=== PATIENT | male | born 1980 | race Caucasian/White ===

== ENCOUNTER → 2022-04-28 10:32 | Outpatient (BNVA) | payer OTHER, SELFPAY | PROVIDERS: PCP Physician Assistant Medical; Visit Provider Nurse Practitioner Family | DX: R56.9 Unspecified convulsions (principal); R29.898 Other symptoms and signs involving the musculoskeletal system; R29.2 Abnormal reflex; Z79.899 Other long term (current) drug therapy | CPT/HCPCS: 99202 ==

== ENCOUNTER 2022-06-16 06:36 | Emergency (ER) | payer OTHER, SELFPAY ==
[2022-06-16 07:21] VITALS: BP 173/83; PULSE 60; RESP 16; TEMP 36.6; O2SAT 98; BMI 22.4
--- NOTE | 2022-06-16 07:58 | ED.BACK ---
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 At C3-C4 there is a posterior soft disc protrusion with moderate central stenosis. There are uncovertebral osteophytes and there is moderate to severe bilateral foraminal narrowing. 2. At C6-C7 there is a left-sided disc extending into the left neural foramen which is severely narrowed. There is also mass effect on the traversing left C8 nerve root. MR L-spine w/o 11/15/21 at [facility]: IMPRESSION: There is a broad shallow central protrusion at L4-L5. Otherwise unremarkable examination. No canal stenosis. No mass effect on the traversing or foraminal nerve roots. comes in today with c/o R sided back pain and spasms states this happens 3 times a year, pain is in mid back, radiates down right leg. No b/b incontinence, no saddle anesthesia, no IVDA/no DOAC> typical episode for him MD elicited complaint: back pain Pertinent past history: prior back pain Onset (ago): day(s) (3) Timing: constant and progressively worsening Severity: similar to previous episodes Similar Symptoms Previously: Yes Quality: sharp Location: lumbar spine Radiation: right upper leg Exacerbating factors: movement, walking, deep breaths and coughing/sneezing Relieving factors: immobilization Context: unknown Associated symptoms: denies other symptoms Treatments prior to arrival: other (lyrica) Work related injury: No Related Data Home Medications Medication Instructions Recorded Confirmed dolutegravir 50 mg-lamivudine 300 1 tab PO DAILY 04/28/22 04/28/22 mg tablet (Dovato) lansoprazole 30 mg delayed 30 mg PO DAILY 04/28/22 04/28/22 release,disintegrating tablet (Prevacid SoluTab) mirtazapine 15 mg tablet (Remeron) 15 mg PO BEDTIME 04/28/22 04/28/22 oxycodone 5 mg tablet 5 mg PO Q6H PRN severe pain 04/28/22 paroxetine HCl 40 mg tablet (Paxil) 40 mg PO DAILY 04/28/22 04/28/22 pregabalin 100 mg capsule (Lyrica) 100 mg PO DAILY 04/28/22 04/28/22 trazodone 50 mg tablet 50 mg PO BEDTIME PRN 04/28/22 04/28/22 Previous Rx's Medication Instructions Recorded levetiracetam 500 mg tablet 500 mg PO BID 30 days #60 tabs 04/28/22 (Keppra) magnesium oxide 400 mg (241.3 mg 400 mg PO BEDTIME 30 days #30 tabs 04/28/22 magnesium) tablet diazepam 5 mg tablet (Valium) 5 mg PO TID PRN muscle spasm #12 06/16/22 tabs lidocaine 4 % topical patch 1 patch topical DAILY PRN pain #10 06/16/22 ea prednisone 20 mg tablet 40 mg PO DAILY 4 days #8 tabs 06/16/22 Allergies Allergy/AdvReac Type Severity Reaction Status Date / Time No Known Allergies Allergy Verified 04/28/22 10:36 Review of Systems Review of Systems: Constitutional : No Weight loss, No Fever, No Chills, ENT/Mouth : No Hearing loss, No Ear Pain, No Nasal Congestion, No Sinus Pain, No Hoarseness, No sore throat, No Rhinorrhea, No Swallowing Difficulty Cardiovascular : No Chest Pain, No SOB Respiratory : No Cough, No Dyspnea Gastrointestinal : No Nausea, No Vomiting, No Diarrhea, No abdominal Pain, No Hematochezia, No Melena Genitourinary : No Dysuria, No Urinary Frequency, No Hematuria, No Urinary Incontinence, Musculoskeletal : positive back pain Skin : No Skin Lesions, No rash Neuro : No Weakness, No Numbness, No Paresthesias, no loss of bowel or bladder incontinence, no saddle anesthesia all other systems reviewed and are negative [facility] Past Medical History Attestation statement: The following information was validated with the patient. Medical History Chronic back pain Left leg weakness Seizure Family History Family History Father Drug abuse and dependence Unknown Cancer of bone Maternal Grandmother Diabetes Heart attack Maternal Grandfather Stroke Social History Social History Household Members: Family Alcohol intake: current Alcohol intake frequency: a few times a month Patient Tobacco Use Status: Never used Tobacco Advance Directives: No Advance Directives Information Provided: No Physical Exam Vital Signs: Vital Signs: Last Vital Signs Temp 97.8 F 06/16/22 07:21 Pulse 60 06/16/22 07:21 Resp 16 06/16/22 07:21 BP 173/83 H 06/16/22 07:21 Pulse Ox 98 06/16/22 07:21 BMI result Body Mass Index 22.4 Appearance: Alert. Oriented X3. No acute distress. Eyes: Pupils equal, round and reactive to light. ENT: Pharynx normal. Neck: Normal inspection. Neck supple. CVS: Normal heart rate and rhythm. Pulses normal. Respiratory: No respiratory distress. Breath sounds normal. Abdomen: Soft and non-tender. Back: ttp along lower lumbar and R lumbar Skin: Skin warm and dry. Normal skin color. Normal skin turgor. Extremities: No lower extremity edema. No calf ttp Neuro: Oriented X 3. No motor deficit. No sensory deficit. SILT inner thigh, L5 5/5 bilaterally Course Course Course Narrative: patient feels much better and feels like he can go home and manage pain at home with medications MDM - Back Pain/Injury MDM Narrative Medical decision making narrative: 42 yo male with seizures, fibromyalgia, chronic back pain here with c/o back spasms and flare of chronic back pain this happens 3 times a year. He is distal NV intact, no b/b incontinence, no saddle anesthesia, no IVDA, no DOAC use. Just had MRI in February. Will try oral medications and reassess. Discharge Plan Discharge Clinical Impression: Lumbar radiculopathy, Strain of lumbar region Patient Disposition: Home, Self-Care Instructions: Back Pain (ED), Lower Back Exercises (ED) Additional Instructions: return to ED for any worsening symptoms or concerns Prescriptions: New lidocaine 4 % adhesive patch,medicated 1 patch topical DAILY PRN (Reason: pain) Qty: 10 0RF Rx Instructions: may leave on for up to 12 hrs prednisone 20 mg tablet 40 mg PO DAILY 4 Days Qty: 8 0RF diazepam [Valium] 5 mg tablet 5 mg PO TID PRN (Reason: muscle spasm) Qty: 12 0RF Rx Instructions: partial fill is okay No Action oxycodone 5 mg tablet 5 mg PO Q6H PRN (Reason: severe pain) Dovato 50-300 mg tablet 1 tab PO DAILY lansoprazole [Prevacid SoluTab] 30 mg tablet,disintegrat, delay rel 30 mg PO DAILY mirtazapine [Remeron] 15 mg tablet 15 mg PO BEDTIME paroxetine HCl [Paxil] 40 mg tablet 40 mg PO DAILY pregabalin [Lyrica] 100 mg capsule 100 mg PO DAILY trazodone 50 mg tablet 50 mg PO BEDTIME PRN magnesium oxide 400 mg (241.3 mg magnesium) tablet 400 mg PO BEDTIME 30 Days Qty: 30 6RF Rx Instructions: may hold for loose stools levetiracetam [Keppra] 500 mg tablet 500 mg PO BID 30 Days Qty: 60 6RF Referrals: Jorge Aguilera PA-C [Primary Care Provider] - 2 days (if not better) Stand Alone Forms: Work/School Release Print Language: Maltese
[2022-06-16] MEDS: diazePAM 2 MG TABLET 5 MG PO (08:31)
[2022-06-16] MEDS: predniSONE 20 MG TABLET 40 MG PO (08:31)
[2022-06-16] MEDS: HYDROcodone Bit/Acetam 5/325 TABLET 1 TAB PO (08:31)
[2022-06-16] MEDS: Ketorolac Tromethamine 30 MG/ML VIAL IM (08:31)
== END 2022-06-16 10:09 | disposition home or self-care (01) ==
PROVIDERS: Emergency Provider Emergency Medicine; PCP Physician Assistant Medical
DX: M54.16 Radiculopathy, lumbar region (principal); S39.012A Strain of muscle, fascia and tendon of lower back, initial encounter; X58.XXXA Exposure to other specified factors, initial encounter; Y93.9 Activity, unspecified; Y92.9 Unspecified place or not applicable; Y99.9 Unspecified external cause status
CPT/HCPCS: 96372; 99283; 99284; J1885

== ENCOUNTER → 2022-07-28 09:04 | Outpatient (BNVA) | payer OTHER, SELFPAY | PROVIDERS: PCP Physician Assistant Medical; Visit Provider Nurse Practitioner Family | DX: R56.9 Unspecified convulsions (principal); R29.2 Abnormal reflex | CPT/HCPCS: 99212 ==

== ENCOUNTER 2022-08-09 11:14 | Outpatient (REF) | payer OTHER, SELFPAY ==
[2022-08-09 13:44] LABS: MANUAL DIFF FLAG NO
[2022-08-09 13:59] LABS: Appearance Urine Clear; Color Urine Yellow; Glucose Urine UA Negative (Negative); Leukocyte Esterase Urine Negative (Negative); Nitrite Urine Negative (Negative); PH 6.5 (5.0-9.0); Specific Gravity - Urine 1.015 (1.005-1.025); Urine Blood Negative (Negative); Urine Ketones Negative (Negative); Urine Protein Negative (Neg-Trace)
[2022-08-09 14:01] LABS: Basophils Percent Auto 0.7 % (0-2); Eosinophils Absolute Auto 0.1 X10*3/uL (0.0-0.4); Eosinophils Percent Auto 1.6 % (0-4); Hematocrit 41.9 % (42.0-52.0); Hemoglobin 14.1 g/dl (14.0-18.0); Imm Gran Abs Auto 0.02 X10*3/uL (0.00-0.03); Imm Gran Pct Auto 0.3 % (0.0-0.4); Lymphocytes Absolute Auto 2.2 X10*3/uL (1.2-4.9); Lymphocytes Percent Auto 35.8 % (20-40); Mean Corpuscular HGB Conc 33.7 g/dl (31.0-36.0); Mean Corpuscular Hemoglobin 34.6 pg (27.0-33.0); Mean Corpuscular Volume 102.9 fL (80.0-98.0); Mean Platelet Volume 9.9 fL (9.4-12.4); Monocytes Absolute Auto 0.5 X10*3/uL (0.1-1.2); Neutrophils Absolute Auto 3.3 x10*3/uL (2.0-8.3); Neutrophils Percent Auto 53.6 % (45-73); Platelet Count 278 X10*3/uL (160-400); Red Blood Count 4.07 X10*6/uL (4.60-5.80); Red Cell Distribution Width 11.5 % (11.0-16.0); White Blood Count 6.2 X10*3/uL (4.8-10.8)
[2022-08-09 14:04] LABS: Bacteria Urine None Seen (None Seen); Hyaline Casts Urine 0-2 /LPF (0-2); RBC Urine 0-2 /HPF (0-2); Squamous Epithelial Cell Urine 0-2 /HPF (0-2); WBC Urine 0-5 /HPF (0-5)
[2022-08-09 14:15] LABS: Alanine Aminotransferase 14 U/L (0-40); Albumin Level 4.8 g/dL (3.5-5.0); Alkaline Phosphatase 74 U/L (39-117); Anion Gap 15 (12-20); Aspartate Amino Transferase 17 U/L (5-37); Bilirubin Total 0.6 mg/dL (0.0-1.0); Blood Urea Nitrogen 20 mg/dL (9-16); C Reactive Protein 0.26 mg/dL (< or = 0.50); Calcium 9.7 mg/dL (8.4-10.2); Carbon Dioxide 27 mmol/L (22-29); Chloride 101 mmol/L (96-108); Estimated Glomerular Filt Rate > 60; Glucose Random 95 mg/dL (60-115); Potassium 4.1 mmol/L (3.3-5.1); Rheumatoid Factor < 15.0 IU/mL (<15.0); Sodium 139 mmol/L (135-145); Total Protein 7.7 g/dL (6.5-8.0)
[2022-08-09 14:25] LABS: Creatinine Urine 68.14 mg/dL; Total Protein Urine Random < 7 mg/dL (<12)
[2022-08-09 14:37] LABS: Erythrocyte Sedimentation Rate 7 MM/HR (0-15)
[2022-08-09 14:41] LABS: Thyroid Stimulating Hormone 0.69 uIU/mL (0.32-4.0)
[2022-08-10 16:47] LABS: Complement C3 124 mg/dL (82-185)
[2022-08-11 10:21] LABS: Anti DNA DS Antibody <1 IU/mL; Antibody to SS-A Antigen <1.0 NEG AI (<1.0 NEG); Antibody to SS-B Antigen <1.0 NEG AI (<1.0 NEG); SM/Ribonucleoprotein Ab <1.0 NEG AI (<1.0 NEG); Smith Protein <1.0 NEG AI (<1.0 NEG)
[2022-08-11 17:17] LABS: Cyclic Citrullinated Peptide <16 UNITS
[2022-08-12 08:37] LABS: Anti Nuclear Antibody Screen NEGATIVE (NEGATIVE)
[2022-08-14 15:46] LABS: HLA B27 Negative (Negative)
[2022-08-15 14:32] LABS: Vitamin D 25-OH, D2 <4 ng/mL; Vitamin D 25-OH, D3 21 ng/mL; Vitamin D 25-OH, Total 21 ng/mL (30-100)
== END 2022-08-09 11:15 | disposition home or self-care (01) ==
LOC: HO.10HDL 11:14
PROVIDERS: Visit Provider Student in an Organized Health Care Education/Training Program
DX: Z13.21 Encounter for screening for nutritional disorder (principal); M25.541 Pain in joints of right hand; G72.9 Myopathy, unspecified; R53.83 Other fatigue; M25.542 Pain in joints of left hand; M54.50 Low back pain, unspecified; G89.29 Other chronic pain; M79.7 Fibromyalgia
CPT/HCPCS: 36415; 80053; 81001; 82306; 82550; 84156; 84443; 85025; 85652; 86038; 86039; 86140; 86160; 86200; 86225; 86235; 86431; 86812; 99202

== ENCOUNTER 2022-08-19 15:10 | Outpatient (REF) | payer OTHER, SELFPAY ==
--- NOTE | ~2022-08-19 | XR_ITS ---
EXAMINATION: XR SACROILIAC JOINTS CLINICAL INFORMATION: M54.50 - Low back pain, unspecified COMPARISON: Outside MR lumbar spine 11/22/2021 ([facility]). TECHNIQUE: 3 views of the sacroiliac joints FINDINGS: There is a transitional vertebral body at the lumbosacral junction with partial left hemisacralization and right lisandro lumbarization. The SI joints show no narrowing or erosive change or subchondral sclerosis. No ankylosis. The hip joints show no narrowing or erosive change or chondrocalcinosis. There is benign mineralization adjacent to superior aspect right greater trochanter approximately 0.6 x 0.9 cm which may represent calcific tendinosis. No erosion. No bony destructive process. XR/XR sacroiliac joint min 3V IMPRESSION: 1. Normal SI joints. 2. Transitional vertebral body at the lumbosacral junction. 3. Benign mineralization adjacent to right greater trochanter which may represent calcific tendinosis.
--- NOTE | ~2022-08-19 | XR_ITS ---
EXAMINATION: XR HAND WRIST, RIGHT XR HAND WRIST, LEFT CLINICAL INFORMATION: Pain in joints of bilateral hands. COMPARISON: None TECHNIQUE: Each hand and wrist are imaged in 3 large [id number] images. A navicular view of the bilateral wrists were also obtained. There are a total of 8 views, 4 on each side. FINDINGS: Right: Normal bony mineralization. The ulnar variance is neutral. The carpus shows no joint narrowing or erosive change or chondrocalcinosis. The MCP and interphalangeal joints show no narrowing or erosive change. There is an incidental small corticated ossicle lateral side third finger PIP joint. Left: Normal bony mineralization. Ulnar variance is neutral. The carpus shows no joint narrowing, erosive change, or chondrocalcinosis. The MCP and interphalangeal joints are unremarkable. No joint narrowing or erosive change. XR/XR hand wrist LT IMPRESSION: -No joint narrowing or erosive change.
--- NOTE | ~2022-08-19 | XR_ITS ---
EXAMINATION: XR HAND WRIST, RIGHT XR HAND WRIST, LEFT CLINICAL INFORMATION: Pain in joints of bilateral hands. COMPARISON: None TECHNIQUE: Each hand and wrist are imaged in 3 large [id number] images. A navicular view of the bilateral wrists were also obtained. There are a total of 8 views, 4 on each side. FINDINGS: Right: Normal bony mineralization. The ulnar variance is neutral. The carpus shows no joint narrowing or erosive change or chondrocalcinosis. The MCP and interphalangeal joints show no narrowing or erosive change. There is an incidental small corticated ossicle lateral side third finger PIP joint. Left: Normal bony mineralization. Ulnar variance is neutral. The carpus shows no joint narrowing, erosive change, or chondrocalcinosis. The MCP and interphalangeal joints are unremarkable. No joint narrowing or erosive change. XR/XR hand wrist RT IMPRESSION: -No joint narrowing or erosive change.
== END 2022-08-19 15:11 | disposition home or self-care (01) ==
LOC: HO.XRAY 15:10
PROVIDERS: PCP Physician Assistant Medical; Visit Provider Student in an Organized Health Care Education/Training Program
DX: M25.542 Pain in joints of left hand (principal); M25.541 Pain in joints of right hand; M54.50 Low back pain, unspecified
CPT/HCPCS: 72202; 73110; 73130

== ENCOUNTER → 2022-09-09 08:17 | Outpatient (BNVA) | payer OTHER, SELFPAY | PROVIDERS: PCP Physician Assistant Medical; Visit Provider Student in an Organized Health Care Education/Training Program | DX: M79.7 Fibromyalgia (principal); B20 Human immunodeficiency virus [HIV] disease; Z79.899 Other long term (current) drug therapy | CPT/HCPCS: 99212 ==

== ENCOUNTER → 2023-01-24 08:02 | Outpatient (BNVA) | payer OTHER, SELFPAY | PROVIDERS: PCP Physician Assistant Medical; Visit Provider Nurse Practitioner Family | DX: R56.9 Unspecified convulsions (principal); M79.7 Fibromyalgia | CPT/HCPCS: 99212 ==

== ENCOUNTER → 2023-03-09 13:00 | Outpatient (BNVA) | payer OTHER, SELFPAY | PROVIDERS: PCP Physician Assistant Medical; Visit Provider Student in an Organized Health Care Education/Training Program | DX: M79.7 Fibromyalgia (principal) | CPT/HCPCS: 99212 ==

== ENCOUNTER 2023-06-13 15:53 | Emergency (ER) | payer MEDICAID, SELFPAY ==
--- NOTE | ~2023-06-13 | XR_ITS ---
EXAMINATION: XR CHEST 2 VIEW CLINICAL INFORMATION: Chest pain COMPARISON: None TECHNIQUE: PA and lateral views of the chest obtained. FINDINGS: The lungs are clear. There are no pleural effusions. The cardiomediastinal silhouette is normal. No rib fracture or pneumothorax is evident. Osseous structures are intact. XR/XR chest 2V IMPRESSION: No acute cardiopulmonary disease.
[2023-06-13 15:55] VITALS: BP 112/81; PULSE 110; RESP 20; O2SAT 96; BMI 21.8
--- NOTE | 2023-06-13 15:55 | ECG_ITS ---
Test Reason : CHEST PAIN Blood Pressure : / mmHG Vent. Rate : 106 BPM Atrial Rate : 106 BPM P-R Int : 146 ms QRS Dur : 080 ms QT Int : 308 ms P-R-T Axes : 052 003 010 degrees QTc Int : 409 ms Sinus tachycardia T wave abnormality, consider anterior ischemia Abnormal ECG No previous ECGs available Referred By: Teresa Felipe Electronically Signed By:Jeovanny Verdugo
--- NOTE | 2023-06-13 15:59 | ED_ITS ---
HPI - Chest Pain General Chief Complaint: Chest Pain Stated Complaint: Chest pain/Dizziness/Weakness Time Seen by Provider: 06/13/23 16:38 Related Data Home Medications Medication Instructions Recorded Confirmed lansoprazole 30 mg delayed 30 mg PO DAILY 04/28/22 01/24/23 release,disintegrating tablet (Prevacid SoluTab) paroxetine HCl 40 mg tablet (Paxil) 40 mg PO DAILY 04/28/22 01/24/23 rosuvastatin 5 mg tablet 5 mg PO DAILY 08/09/22 01/24/23 aripiprazole 10 mg tablet 10 mg PO DAILY 09/09/22 01/24/23 cabotegravir ER 600 mg/3 6 ml IM [id number] 09/09/22 01/24/23 mL-rilpivirine ER 900 mg/3mL IM suspension,ER (Cabenuva) mirtazapine 30 mg tablet 30 mg PO BEDTIME depressive 09/09/22 01/24/23 disorder prazosin 2 mg capsule 2 mg PO BEDTIME 09/09/22 01/24/23 temazepam 30 mg capsule 30 mg PO BEDTIME PRN 01/24/23 01/24/23 aripiprazole 15 mg tablet 15 mg PO DAILY 03/09/23 lansoprazole 30 mg capsule,delayed 30 mg PO BEDTIME 03/09/23 release prazosin 1 mg capsule 1 mg PO BEDTIME 03/09/23 Previous Rx's Medication Instructions Recorded levetiracetam 1,000 mg tablet 1,000 mg PO Q12H 30 days #60 tabs 01/24/23 levetiracetam 250 mg tablet 250 mg PO Q12H 30 days #60 tabs 01/24/23 magnesium oxide 400 mg (241.3 mg 400 mg PO BEDTIME 30 days #30 tabs 01/24/23 magnesium) tablet pregabalin 150 mg capsule 150 mg PO TID #90 caps 04/18/23 Allergies Allergy/AdvReac Type Severity Reaction Status Date / Time No Known Allergies Allergy Verified 06/13/23 15:59 [facility] Past Medical History Medical History Chronic back pain Fibromyalgia, primary HIV (human immunodeficiency virus infection) Left leg weakness Seizure Surgical History History of carpal tunnel release of both wrists Family History Family History Father Drug abuse and dependence Unknown Cancer of bone Maternal Grandmother Diabetes Heart attack Maternal Grandfather Stroke Social History Social History Household Members: Family Housing: House Alcohol intake: never Patient Tobacco Use Status: Never used Tobacco Smoked in Last 30 Days: No Use of substances other than those prescribed or required for medical reasons: Yes Substance Use Type: Marijuana Substance Use Frequency: Occasionally Advance Directives: No Advance Directives Information Provided: No service: No Current occupational status: unemployed 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 Accompanied by dizziness, weakness, blurred visio n and occipital headache. Admits to cocaine use 3 days ago, does not use regularly. BP normal in triage, HR low 100s. Plan: EKG, CXR, lab workup Medications Administered Discontinued Medications Generic Name Dose Route Start Last Admin Trade Name Rebecca PRN Reason Stop Dose Admin Acetaminophen 650 mg 06/13/23 17:52 06/13/23 18:30 Acetaminophen 325 Mg Tablet PO 06/13/23 17:53 650 mg ONCE ONE Administration Al Hydroxide/Mg Hydroxide 30 ml 06/13/23 17:24 06/13/23 17:49 Magnesium Hydrox/Alum Hydrox 30 Ml Oral.Susp PO 06/13/23 17:25 30 ml ONCE ONE Administration Famotidine 20 mg 06/13/23 17:24 06/13/23 17:49 Famotidine 20 Mg Tablet PO 06/13/23 17:25 20 mg ONCE ONE Administration Medical Decision Making Lab Data 06/13/23 16:17 06/13/23 16:17 Labs: Lab Results 06/13/23 06/13/23 06/13/23 Range/Units 16:17 16:17 16:17 WBC 11.3 H (4.8-10.8) X10*3/uL RBC 4.05 L (4.60-5.80) X10*6/uL Hgb 13.3 L (14.0-18.0) g/dl Hct 39.1 L (42.0-52.0) % MCV 96.5 (80.0-98.0) fL MCH 32.8 (27.0-33.0) pg MCHC 34.0 (31.0-36.0) g/dl RDW 12.1 (11.0-16.0) % Plt Count 201 D (160-400) X10*3/uL MPV 9.3 L (9.4-12.4) fL Immature Gran % (Auto) 0.4 (0.0-0.4) % Neut % (Auto) 90.6 H (45-73) % Lymph % (Auto) 4.3 L (20-40) % Dukes % (Auto) 4.5 (2-11) % Eos % (Auto) 0.0 (0-4) % Baso % (Auto) 0.2 (0-2) % Lymph # (Auto) 0.5 L (1.2-4.9) X10*3/uL Dukes # (Auto) 0.5 (0.1-1.2) X10*3/uL Eos # (Auto) 0.0 (0.0-0.4) X10*3/uL Baso # (Auto) 0.0 (0.0-0.2) X10*3/uL Abs Immat Gran (auto) 0.04 H (0.00-0.03) X10*3/uL Absolute Neuts (auto) 10.2 H (2.0-8.3) x10*3/uL Absolute Nucleated RBC 0.000 (0.0-0.012) X10*3/uL Nucleated RBC % (auto) 0.0 (0.0-0.2) /100WBC Smear Tech's Comments VERIFIED Sodium 132 L (135-145) mmol/L Potassium 3.4 (3.3-5.1) mmol/L Chloride 99 (96-108) mmol/L Carbon Dioxide 26 (22-29) mmol/L Anion Gap 10 L (12-20) BUN 12 (9-16) mg/dL Creatinine 1.14 (0.5-1.4) mg/dL Estim Creat Clear Calc 69.4 Estimated GFR > 60 Random Glucose 134 H (60-115) mg/dL Calcium 9.6 (8.4-10.2) mg/dL Magnesium 1.5 L (1.6-2.6) mg/dL Total Bilirubin 1.0 (0.0-1.0) mg/dL Direct Bilirubin 0.4 (0.0-0.5) mg/dL AST 20 (5-37) U/L ALT 18 (0-40) U/L Alkaline Phosphatase 75 (39-117) U/L Troponin I High Sens 3.7 (<3.5-35.0) ng/L Total Protein 7.2 (6.5-8.0) g/dL Albumin 4.4 (3.5-5.0) g/dL Discharge Plan Discharge Prescriptions: No Action pregabalin 150 mg capsule 150 mg PO TID Qty: 90 1RF lansoprazole [Prevacid SoluTab] 30 mg tablet,disintegrat, delay rel 30 mg PO DAILY paroxetine HCl [Paxil] 40 mg tablet 40 mg PO DAILY temazepam 30 mg capsule 30 mg PO BEDTIME PRN levetiracetam 250 mg tablet 250 mg PO Q12H 30 Days Qty: 60 6RF Rx Instructions: take w/ 1000mg tab = 1250mg q 12hrs levetiracetam 1,000 mg tablet 1,000 mg PO Q12H 30 Days Qty: 60 6RF Rx Instructions: take w/ 250mg tab = 1250mg q 12hrs magnesium oxide 400 mg (241.3 mg magnesium) tablet 400 mg PO BEDTIME 30 Days Qty: 30 6RF Rx Instructions: may hold for loose stools Cabenuva 600 mg/3 mL- 900 mg/3 mL suspension,extended release 6 ml IM [id number] aripiprazole 10 mg tablet 10 mg PO DAILY prazosin 2 mg capsule 2 mg PO BEDTIME mirtazapine 30 mg tablet 30 mg PO BEDTIME rosuvastatin 5 mg tablet 5 mg PO DAILY aripiprazole 15 mg tablet 15 mg PO DAILY lansoprazole 30 mg capsule,delayed release(DR/EC) 30 mg PO BEDTIME prazosin 1 mg capsule 1 mg PO BEDTIME
[2023-06-13 16:23] LABS: Basophils Percent Auto 0.2 % (0-2); Hematocrit 39.1 % (42.0-52.0); Hemoglobin 13.3 g/dl (14.0-18.0); Imm Gran Abs Auto 0.04 X10*3/uL (0.00-0.03); Imm Gran Pct Auto 0.4 % (0.0-0.4); Lymphocytes Absolute Auto 0.5 X10*3/uL (1.2-4.9); Lymphocytes Percent Auto 4.3 % (20-40); MANUAL DIFF FLAG SCAN; Mean Corpuscular Hemoglobin 32.8 pg (27.0-33.0); Mean Corpuscular Volume 96.5 fL (80.0-98.0); Mean Platelet Volume 9.3 fL (9.4-12.4); Monocytes Absolute Auto 0.5 X10*3/uL (0.1-1.2); Monocytes Percent Auto 4.5 % (2-11); Neutrophils Absolute Auto 10.2 x10*3/uL (2.0-8.3); Neutrophils Percent Auto 90.6 % (45-73); Platelet Count 201 X10*3/uL (160-400); Red Blood Count 4.05 X10*6/uL (4.60-5.80); Red Cell Distribution Width 12.1 % (11.0-16.0); SCAN SMEAR FLAG 1; White Blood Count 11.3 X10*3/uL (4.8-10.8)
[2023-06-13 16:47] LABS: Alanine Aminotransferase 18 U/L (0-40); Albumin Level 4.4 g/dL (3.5-5.0); Alkaline Phosphatase 75 U/L (39-117); Anion Gap 10 (12-20); Aspartate Amino Transferase 20 U/L (5-37); Bilirubin Direct 0.4 mg/dL (0.0-0.5); Blood Urea Nitrogen 12 mg/dL (9-16); Calcium 9.6 mg/dL (8.4-10.2); Carbon Dioxide 26 mmol/L (22-29); Chloride 99 mmol/L (96-108); Creatinine Clr Calc Pharmacy 69.4; Estimated Glomerular Filt Rate > 60; Glucose Random 134 mg/dL (60-115); Magnesium 1.5 mg/dL (1.6-2.6); Potassium 3.4 mmol/L (3.3-5.1); Sodium 132 mmol/L (135-145); Total Protein 7.2 g/dL (6.5-8.0)
[2023-06-13 16:50] LABS: Troponin-I High Sensitivity 3.7 ng/L (<3.5-35.0)
[2023-06-13 16:51] LABS: SLIDE REVIEW VERIFIED
[2023-06-13 17:18] VITALS: BP 122/65; PULSE 108; RESP 16; O2SAT 97
[2023-06-13 17:24] VITALS: PULSE 107
--- NOTE | 2023-06-13 17:25 | ED.CHESTPAIN ---
HPI - Chest Pain General Chief Complaint: Chest Pain Stated Complaint: Chest pain/Dizziness/Weakness Time Seen by Provider: 06/13/23 16:38 Source: patient Mode of arrival: ambulatory Limitations: no limitations History of Present Illness HPI narrative: Patient 43 years old history of anxiety HIV , fibromyalgia had soup and darker which were hot after that patient start having the burning feeling in mid chest and epigastric area also complaining of body aches patient does have a fibromyalgia and is common for him to have body aches Related Data Home Medications Medication Instructions Recorded Confirmed lansoprazole 30 mg delayed 30 mg PO DAILY 04/28/22 01/24/23 release,disintegrating tablet (Prevacid SoluTab) paroxetine HCl 40 mg tablet (Paxil) 40 mg PO DAILY 04/28/22 01/24/23 rosuvastatin 5 mg tablet 5 mg PO DAILY 08/09/22 01/24/23 aripiprazole 10 mg tablet 10 mg PO DAILY 09/09/22 01/24/23 cabotegravir ER 600 mg/3 6 ml IM [id number] 09/09/22 01/24/23 mL-rilpivirine ER 900 mg/3mL IM suspension,ER (Cabenuva) mirtazapine 30 mg tablet 30 mg PO BEDTIME depressive 09/09/22 01/24/23 disorder prazosin 2 mg capsule 2 mg PO BEDTIME 09/09/22 01/24/23 temazepam 30 mg capsule 30 mg PO BEDTIME PRN 01/24/23 01/24/23 aripiprazole 15 mg tablet 15 mg PO DAILY 03/09/23 lansoprazole 30 mg capsule,delayed 30 mg PO BEDTIME 03/09/23 release prazosin 1 mg capsule 1 mg PO BEDTIME 03/09/23 Previous Rx's Medication Instructions Recorded levetiracetam 1,000 mg tablet 1,000 mg PO Q12H 30 days #60 tabs 01/24/23 levetiracetam 250 mg tablet 250 mg PO Q12H 30 days #60 tabs 01/24/23 magnesium oxide 400 mg (241.3 mg 400 mg PO BEDTIME 30 days #30 tabs 01/24/23 magnesium) tablet pregabalin 150 mg capsule 150 mg PO TID #90 caps 04/18/23 lorazepam 1 mg tablet (Ativan) 1 mg PO BEDTIME PRN anxiety/sleep 06/13/23 #10 tabs sucralfate 1 gram tablet 1 g PO TID #90 tabs 06/13/23 Allergies Allergy/AdvReac Type Severity Reaction Status Date / Time No Known Allergies Allergy Verified 06/13/23 15:59 Review of Systems Review of Systems: Yes all other systems are reviewed and are negative [facility] Past Medical History Medical History Chronic back pain Fibromyalgia, primary HIV (human immunodeficiency virus infection) Left leg weakness Seizure Surgical History History of carpal tunnel release of both wrists Family History Family History Father Drug abuse and dependence Unknown Cancer of bone Maternal Grandmother Diabetes Heart attack Maternal Grandfather Stroke Social History Social History Household Members: Family Housing: House Alcohol intake: never Patient Tobacco Use Status: Never used Tobacco Smoked in Last 30 Days: No Use of substances other than those prescribed or required for medical reasons: Yes Substance Use Type: Marijuana Substance Use Frequency: Occasionally Advance Directives: No Advance Directives Information Provided: No service: No Current occupational status: unemployed 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 Oriented X3. No acute distress. Eyes: PERRLA, No Nystagmus ENT: Pharynx normal. Oral Mucosa moist Neck: Normal inspection. Neck supple. CVS: Normal heart rate and rhythm. Pulses normal. Respiratory: No respiratory distress. Equal air entry bilateral, no wheezing/rales/rhonchi Abdomen: Soft ,mild epigastric tenderness. Bowel sounds are present, no mass palpable, no CVA tenderness Skin: Skin warm and dry. Normal skin color. Normal skin turgor. Extremities: No lower extremity edema. No calf tenderness Neuro: Oriented X 3. No motor deficit. No sensory deficit.No cerebellar signs , cranial nerves II-XII intact Medications Administered Discontinued Medications Generic Name Dose Route Start Last Admin Trade Name Rebecca PRN Reason Stop Dose Admin Acetaminophen 650 mg 06/13/23 17:52 06/13/23 18:30 Acetaminophen 325 Mg Tablet PO 06/13/23 17:53 650 mg ONCE ONE Administration Al Hydroxide/Mg Hydroxide 30 ml 06/13/23 17:24 06/13/23 17:49 Magnesium Hydrox/Alum Hydrox 30 Ml Oral.Susp PO 06/13/23 17:25 30 ml ONCE ONE Administration Famotidine 20 mg 06/13/23 17:24 06/13/23 17:49 Famotidine 20 Mg Tablet PO 06/13/23 17:25 20 mg ONCE ONE Administration Medical Decision Making Medical Decision Making [facility] Narrative: Patient with symptoms of gastritis noncardiac chest pain with anxiety feeling much better after Maalox and Pepcid will discharge patient home heart score of 0 Differential Diagnosis Differential Diagnoses: The differential diagnosis associated with the presentation includes ACS/gastritis/hiatal hernia/anxiety Lab Data [facility] Lab Attestation statement: I reviewed the patient's lab results. 06/13/23 16:17 06/13/23 16:17 Labs: Lab Results 06/13/23 06/13/23 06/13/23 Range/Units 16:17 16:17 16:17 WBC 11.3 H (4.8-10.8) X10*3/uL RBC 4.05 L (4.60-5.80) X10*6/uL Hgb 13.3 L (14.0-18.0) g/dl Hct 39.1 L (42.0-52.0) % MCV 96.5 (80.0-98.0) fL MCH 32.8 (27.0-33.0) pg MCHC 34.0 (31.0-36.0) g/dl RDW 12.1 (11.0-16.0) % Plt Count 201 D (160-400) X10*3/uL MPV 9.3 L (9.4-12.4) fL Immature Gran % (Auto) 0.4 (0.0-0.4) % Neut % (Auto) 90.6 H (45-73) % Lymph % (Auto) 4.3 L (20-40) % Sevier % (Auto) 4.5 (2-11) % Eos % (Auto) 0.0 (0-4) % Baso % (Auto) 0.2 (0-2) % Lymph # (Auto) 0.5 L (1.2-4.9) X10*3/uL Sevier # (Auto) 0.5 (0.1-1.2) X10*3/uL Eos # (Auto) 0.0 (0.0-0.4) X10*3/uL Baso # (Auto) 0.0 (0.0-0.2) X10*3/uL Abs Immat Gran (auto) 0.04 H (0.00-0.03) X10*3/uL Absolute Neuts (auto) 10.2 H (2.0-8.3) x10*3/uL Absolute Nucleated RBC 0.000 (0.0-0.012) X10*3/uL Nucleated RBC % (auto) 0.0 (0.0-0.2) /100WBC Smear Tech's Comments VERIFIED Sodium 132 L (135-145) mmol/L Potassium 3.4 (3.3-5.1) mmol/L Chloride 99 (96-108) mmol/L Carbon Dioxide 26 (22-29) mmol/L Anion Gap 10 L (12-20) BUN 12 (9-16) mg/dL Creatinine 1.14 (0.5-1.4) mg/dL Estim Creat Clear Calc 69.4 Estimated GFR > 60 Random Glucose 134 H (60-115) mg/dL Calcium 9.6 (8.4-10.2) mg/dL Magnesium 1.5 L (1.6-2.6) mg/dL Total Bilirubin 1.0 (0.0-1.0) mg/dL Direct Bilirubin 0.4 (0.0-0.5) mg/dL AST 20 (5-37) U/L ALT 18 (0-40) U/L Alkaline Phosphatase 75 (39-117) U/L Troponin I High Sens 3.7 (<3.5-35.0) ng/L Total Protein 7.2 (6.5-8.0) g/dL Albumin 4.4 (3.5-5.0) g/dL Independent Interpretation I performed an independent interpretation of an: EKG Interpretation: sinus tachycardia heart rate of 106 beats per minute no acute ST-T changes nonspecific T wave inversion in anterior leads Discharge Plan Discharge Clinical Impression: Chest pain due to gastrointestinal reflux disease, Fibromyalgia, primary Patient Disposition: Home, Self-Care Instructions: Fibromyalgia (ED), Gastroesophageal Reflux Disease (ED), Noncardiac Chest Pain (ED) Additional Instructions: Take medication for acid reflux as prescribed Avoid fried and spicy food Drink plenty of fluids Medication for anxiety and sleep as prescribed Prescriptions: New sucralfate 1 gram tablet 1 g PO TID Qty: 90 0RF lorazepam [Ativan] 1 mg tablet 1 mg PO BEDTIME PRN (Reason: anxiety/sleep) Qty: 10 0RF No Action pregabalin 150 mg capsule 150 mg PO TID Qty: 90 1RF lansoprazole [Prevacid SoluTab] 30 mg tablet,disintegrat, delay rel 30 mg PO DAILY paroxetine HCl [Paxil] 40 mg tablet 40 mg PO DAILY temazepam 30 mg capsule 30 mg PO BEDTIME PRN levetiracetam 250 mg tablet 250 mg PO Q12H 30 Days Qty: 60 6RF Rx Instructions: take w/ 1000mg tab = 1250mg q 12hrs levetiracetam 1,000 mg tablet 1,000 mg PO Q12H 30 Days Qty: 60 6RF Rx Instructions: take w/ 250mg tab = 1250mg q 12hrs magnesium oxide 400 mg (241.3 mg magnesium) tablet 400 mg PO BEDTIME 30 Days Qty: 30 6RF Rx Instructions: may hold for loose stools Cabenuva 600 mg/3 mL- 900 mg/3 mL suspension,extended release 6 ml IM [id number] aripiprazole 10 mg tablet 10 mg PO DAILY prazosin 2 mg capsule 2 mg PO BEDTIME mirtazapine 30 mg tablet 30 mg PO BEDTIME rosuvastatin 5 mg tablet 5 mg PO DAILY aripiprazole 15 mg tablet 15 mg PO DAILY lansoprazole 30 mg capsule,delayed release(DR/EC) 30 mg PO BEDTIME prazosin 1 mg capsule 1 mg PO BEDTIME Interventions: ED Discharge Assessment Last Done: 06/13/23 19:47 Discharge Date/Time: 06/13/23 19:48
[2023-06-13] MEDS: Magnesium Hydrox/Alum Hydrox 30 ML ORAL.SUSP PO (17:49)
[2023-06-13] MEDS: Famotidine 20 MG TABLET PO (17:49)
[2023-06-13] MEDS: Acetaminophen 325 MG TABLET 650 MG PO (18:30)
== END 2023-06-13 19:48 | disposition home or self-care (01) ==
PROVIDERS: Physician Assistant; Emergency Provider Internal Medicine; PCP Physician Assistant
DX: R07.89 Other chest pain (principal); R42 Dizziness and giddiness; R53.1 Weakness; K21.9 Gastro-esophageal reflux disease without esophagitis; M79.7 Fibromyalgia
CPT/HCPCS: 36415; 71046; 80048; 80076; 83735; 84484; 85025; 93005; 99283; 99285

== ENCOUNTER → 2023-06-13 15:55 | Outpatient (BNV) | payer MEDICAID, SELFPAY | PROVIDERS: Emergency Provider Internal Medicine; PCP Physician Assistant; Visit Provider Internal Medicine Cardiovascular Disease | DX: R00.0 Tachycardia, unspecified (principal); R94.31 Abnormal electrocardiogram [ECG] [EKG] | CPT/HCPCS: 93010 ==

== ENCOUNTER 2023-07-27 08:03 | Outpatient (AMB) | payer MEDICAID, SELFPAY ==
[2023-07-27 08:09] VITALS: BP 98/70; PULSE 54; O2SAT 99; BMI 23.3
--- NOTE | 2023-07-27 08:09 | A.OFFVIS_ITS ---
Intake Vital Signs 07/27/23 08:09 Height 5 ft 5 in Weight 140 lb BMI 23.3 BP 98/70 Blood Pressure Location Rt brachial Position Sitting Pulse 54 Pulse Source Pulse Oximeter Pulse Oximetry (%) 99 Oxygen Delivery Method Room Air Intake Visit Reasons: 6 mnts f/u appt - Confirmed Intake Note: Patient presents for 6 month follow up. Patient states I've been better since my last visit. Allergies No Known Allergies Allergy (Verified 07/27/23 08:11) Medication List - Last Reconciled 07/27/23 by DAMASO Cardenas aripiprazole 10 mg PO DAILY aripiprazole 15 mg PO DAILY cabotegravir-rilpivirine 600 mg/3 mL- 900 mg/3 mL ER (Cabenuva) 6 mL IM [id number] lansoprazole (Prevacid SoluTab) 30 mg PO DAILY lansoprazole 30 mg PO BEDTIME levetiracetam 250 mg PO Q12H 30 days levetiracetam 1,000 mg PO Q12H 30 days lorazepam (Ativan) 1 mg PO BEDTIME PRN magnesium oxide 400 mg PO BEDTIME 30 days mirtazapine 30 mg PO BEDTIME paroxetine HCl (Paxil) 40 mg PO DAILY prazosin 2 mg PO BEDTIME prazosin 1 mg PO BEDTIME pregabalin 150 mg PO TID rosuvastatin 5 mg PO DAILY sucralfate 1 g PO TID temazepam 30 mg PO BEDTIME PRN HPI HPI Comments History of Present Illness Details 43-yr-old male presents for f/u visit. Pt reports he had a [facility] eval for GI pain- was treated conservatively, and is now feeling better. He has not had any full convulsive seizures, still occasionally spacing out. He is compliant w/ Keppra 1250mg bid. He notes that he has been having memory issues- especially things in his past and more recent things as well. This has been going on for sometime, but has been progressing and worsening, so his psychologist recently advised him to speak with us. His father always had memory issues. His paternal grandmother had memory and behavior issues- staes this was for as long as he knew her, she in her late 80s- pt states she become paranoid and accidentally?caused mechanical asphyxiayion. He states all his paternal uncles also have memory and behavior issues. [facility] Medical History (Updated 07/27/23 @ 09:08 by DAMASO Cardenas) Mood disorder Fibromyalgia, primary HIV (human immunodeficiency virus infection) Chronic back pain Seizure Left leg weakness Surgical History History of carpal tunnel release of both wrists Family History Father Drug abuse and dependence Unknown Cancer of bone Maternal Grandmother Diabetes Heart attack Maternal Grandfather Stroke Social History Household Members: Family Housing: House Alcohol intake: never Patient Tobacco Use Status: Never used Tobacco Substance Use Type: Marijuana service: No Current occupational status: unemployed 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 Review of Systems Const All systems reviewed & are unremarkable except as noted in HPI and below Physical Exam Vital Signs: Last Vital Signs Pulse 54 07/27/23 08:09 BP 98/70 07/27/23 08:09 Pulse Ox 99 07/27/23 08:09 Oxygen Delivery Method Room Air 07/27/23 08:09 BMI result Body Mass Index 23.3 Const General: cooperative and no acute distress Orientation/consciousness: patient oriented x3 HEENT Head: Yes normocephalic Resp Effort & Inspection: normal respiratory effort and able to speak in complete sentences Neuro General: patient oriented x3, gait normal and CN's II-XI intact bilaterally Cognition (Neuro): normal cognition Motor exam (neuro): 5/5 motor strength present throughout Psych Appearance: grossly normal Mental Status: mental status grossly normal Speech and movement: Normal speech and movement present Affect: normal affect Attitude: cooperative Thought process: Normal thought process present Thought content: Normal thought content present Insight: Good insight present (Psych) Judgement: Good judgement present (Psych) Assessment & Plan Assessment & Plan (1) Cognitive dysfunction: Code(s): F09 - Unspecified mental disorder due to known physiological condition (2) Seizure: Comment: complex absence seizures- dx 2003 Code(s): R56.9 - Unspecified convulsions Plan For seizure: Continue Keppra to 1250mg bid. Continue Magnesium. Weakness and hyperreflexia- improved- will monitor clinically. For memory: Discussed that cognitive difficulties may be r/t polypharmacy, seizure d/o, however pt does have other risk factors including positive HIV status, family h/o cognitive/behavioral dysfunction. Will check labs for common etiologies of memory loss. Will request neuro-psych eval. Will order brain MRI w/wo to rule-out infectious, inflammatory etiologies. f/u in 3 months or sooner prn Orders: Orders TSH reflex Free T4 Today F09 - Unspecified mental disorder due to known physiological condition, R56.9 - Unspecified convulsions Syphilis Screen Today F09 - Unspecified mental disorder due to known physiological condition, R56.9 - Unspecified convulsions CESARIO Reflex Titer and Pattern Today F09 - Unspecified mental disorder due to known physiological condition, R56.9 - Unspecified convulsions MR head/brain wo/w con Today B20 - Human immunodeficiency virus [HIV] disease, F09 - Unspecified mental disorder due to known physiological condition, R56.9 - Unspecified convulsions Comprehensive Met. Panel Today F09 - Unspecified mental disorder due to known physiological condition, R56.9 - Unspecified convulsions Complete Blood Count Auto Diff Today F09 - Unspecified mental disorder due to known physiological condition, R56.9 - Unspecified convulsions CRP High Sensitivity Today F09 - Unspecified mental disorder due to known physiological condition, R56.9 - Unspecified convulsions Erythrocyte Sedimentation Rate Today F09 - Unspecified mental disorder due to known physiological condition, R56.9 - Unspecified convulsions Vitamin B12 and Folate Today F09 - Unspecified mental disorder due to known physiological condition, R56.9 - Unspecified convulsions Levetiracetam Keppra Today F09 - Unspecified mental disorder due to known p hysiological condition, R56.9 - Unspecified convulsions Referrals Neuropsychiatry Referral B20 - Human immunodeficiency virus [HIV] disease, F09 - Unspecified mental disorder due to known physiological condition, F39 - Unspecified mood [affective] disorder, R56.9 - Unspecified convulsions Coding Level of Care Code Est Pt Level 4 (69853) Diagnoses Cognitive dysfunction F09 Seizure R56.9
== END 2023-07-27 08:42 | disposition home or self-care (01) ==
PROVIDERS: PCP Physician Assistant Medical; Visit Provider Nurse Practitioner Family
DX: R41.89 Other symptoms and signs involving cognitive functions and awareness (principal); R56.9 Unspecified convulsions
CPT/HCPCS: 99214

== ENCOUNTER → 2023-07-27 08:03 | Outpatient (BNVA) | payer MEDICAID, SELFPAY | PROVIDERS: PCP Physician Assistant Medical; Visit Provider Nurse Practitioner Family | DX: F09 Unspecified mental disorder due to known physiological condition (principal); R56.9 Unspecified convulsions; F39 Unspecified mood [affective] disorder; B20 Human immunodeficiency virus [HIV] disease | CPT/HCPCS: 99212 ==

== ENCOUNTER 2023-08-28 08:00 | Outpatient (RCR) | payer MEDICAID, SELFPAY | END 2023-09-11 10:55 | disposition home or self-care (01) | LOC: HO.OT 08:00 | PROVIDERS: PCP Physician Assistant Medical; Visit Provider Orthopaedic Surgery | DX: M77.12 Lateral epicondylitis, left elbow (principal) | CPT/HCPCS: 29125; 97035; 97110; 97140; 97165; 97760 ==

== ENCOUNTER 2023-09-08 13:57 | Outpatient (AMB) | payer MEDICAID, SELFPAY ==
[2023-09-08 14:11] VITALS: BP 117/86; PULSE 62; RESP 16; TEMP 36.8; O2SAT 96; BMI 23.0
--- NOTE | 2023-09-08 14:11 | MHC.OFFVIS ---
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 Organic Chemistry Professor Name: Purvi#[id number] Accompanied by: Self / Same As Patient Allergies No Known Allergies Allergy (Verified 09/08/23 14:12) Medication List - Last Reconciled 09/08/23 by Mariana Bloom MD aripiprazole 10 mg PO DAILY aripiprazole 15 mg PO DAILY cabotegravir-rilpivirine 600 mg/3 mL- 900 mg/3 mL ER (Cabenuva) 6 mL IM [id number] lansoprazole (Prevacid SoluTab) 30 mg PO DAILY lansoprazole 30 mg PO BEDTIME levetiracetam 250 mg PO Q12H 30 days levetiracetam 1,000 mg PO Q12H 30 days lorazepam (Ativan) 1 mg PO BEDTIME PRN magnesium oxide 400 mg PO BEDTIME 30 days mirtazapine 30 mg PO BEDTIME paroxetine HCl (Paxil) 40 mg PO DAILY prazosin 2 mg PO BEDTIME prazosin 1 mg PO BEDTIME pregabalin 150 mg PO TID rosuvastatin 5 mg PO DAILY sucralfate 1 g PO TID temazepam 30 mg PO BEDTIME PRN HPI HPI Comments History of Present Illness Details Pt presents today for FM follow up. States that his pain is overall well controlled. Compliant with Lyrica 150 mg 3 times a day. Does different forms of exercise such as walking, stretching and does some exercises at home by following a [employer] videos. Initial history: This is a 42-year-old male with past medical history of HIV on HAART , fibromyalgia, chronic back pain, seizures who presents for evaluation of diffuse pain. The condition started since he was 15. He was evaluated by multiple doctors in [place] and received numerous medications. He was diagnosed with fibromyalgia. Could not tolerate gabapentin and Cymbalta. He was started on Lyrica around 2008 and this medication gave him significant relief. He has pain everywhere. Especially of his back, neck, shoulders, hands, feet. He feels like somebody is bowling him from his neck in his legs. Pain is worse with activity and also worse in the morning. Occasional swelling of his fingers. He was seen by pain management and received 2 injections in his spine which provided significant relief. 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[employer] [facility] [place] Reports arthralgias Physical Exam Vital Signs: Last Vital Signs Temp 98.2 F 09/08/23 14:11 Pulse 62 09/08/23 14:11 Resp 16 09/08/23 14:11 BP 117/86 09/08/23 14:11 Pulse Ox 96 09/08/23 14:11 Oxygen Delivery Method Room Air 09/08/23 14:11 BMI result Body Mass Index 23.0 Const General: cooperative, healthy appearing, comfortable, no acute distress and well developed Nutritional Appearance: average body habitus Orientation/consciousness: patient oriented x3 Limitations: no limitations HEENT Head: Yes normocephalic and Yes atraumatic Resp Effort & Inspection: normal respiratory effort and able to speak in complete sentences Auscultation: clear to auscultation bilaterally Cardio Rate: regular rate Rhythm: regular rhythm Neuro General: patient oriented x3 Extrem Other: Left knee crepitus, pain with flexion Numerous fibromyalgia tender points Mild osteoarthritic changes (Inna's nodes) of his hands but no swelling Assessment & Plan Assessment & Plan (1) Fibromyalgia, primary: Code(s): M79.7 - Fibromyalgia Plan: This is a 42-year-old male with past medical history HIV on HAART, fibromyalgia, seizure disorder presents for follow-up. Fibromyalgia symptoms overall well controlled. Continue with Lyrica 150 mg t.i.d.. Try Voltaren gel as needed for left knee arthritis Follow-up in 6 months Plan I spent 15 minutes reviewing patient's chart, evaluating patient, counseling patient and documenting in the chart Medications: Refilled pregabalin 150 mg PO TID 270 caps 1RF M79.7 - Fibromyalgia Coding Level of Care Code Est Pt Level 3 (86859) Diagnoses Fibromyalgia, primary M79.7
== END 2023-09-08 14:27 | disposition home or self-care (01) ==
PROVIDERS: PCP Physician Assistant Medical; Visit Provider Student in an Organized Health Care Education/Training Program
DX: M79.7 Fibromyalgia (principal)
CPT/HCPCS: 99213

== ENCOUNTER → 2023-09-08 13:57 | Outpatient (BNVA) | payer MEDICAID, SELFPAY | PROVIDERS: Visit Provider Student in an Organized Health Care Education/Training Program | DX: M79.7 Fibromyalgia (principal) | CPT/HCPCS: 99212 ==

== ENCOUNTER 2023-11-24 08:05 | Outpatient (AMB) | payer MEDICAID, SELFPAY ==
--- NOTE | 2023-11-24 08:13 | MHC.OFFVIS ---
Intake Vital Signs 11/24/23 08:16 Height 5 ft 5 in BP 106/74 Blood Pressure Location Rt brachial Position Sitting Pulse 59 Pulse Source Pulse Oximeter Pulse Oximetry (%) 98 Oxygen Delivery Method Room Air Intake Visit Reasons: 4 mnts f/u appt-LVM Intake Note: Patient presents for 4 months follow up . I've been good since the last time I saw her. Allergies No Known Allergies Allergy (Verified 11/24/23 08:16) Medication List - Last Reconciled 11/24/23 by DAMASO Cardenas aripiprazole 10 mg PO DAILY aripiprazole 15 mg PO DAILY cabotegravir-rilpivirine 600 mg/3 mL- 900 mg/3 mL ER (Cabenuva) 6 mL IM [id number] lansoprazole (Prevacid SoluTab) 30 mg PO DAILY lansoprazole 30 mg PO BEDTIME levetiracetam 250 mg PO Q12H 30 days levetiracetam 1,000 mg PO Q12H 30 days lorazepam (Ativan) 1 mg PO BEDTIME PRN magnesium oxide 400 mg PO BEDTIME 30 days mirtazapine 30 mg PO BEDTIME paroxetine HCl (Paxil) 40 mg PO DAILY prazosin 2 mg PO BEDTIME prazosin 1 mg PO BEDTIME pregabalin 150 mg PO TID rosuvastatin 5 mg PO DAILY sucralfate 1 g PO TID temazepam 30 mg PO BEDTIME PRN HPI HPI Comments History of Present Illness Details 43-yr-old male presents for f/u visit. Pt denies any significant interval medical changes. Pt reports he has 1-2 episodes of absence seizures per week. Sometimes may see lights. He is compliant w/ Keppra 1250mg bid. No interval convulsive seizures. He still finds himself forgetful, forgets where he put something, he may forget that the stove is on or he is cooking. He notes he has always been like this, it is better since he started He forgot to have the labs done. He also notes that he has been having increased right occipital pressure pulsating headache in the last 6 months, but has had for years. The pain can be 9-10/10. When more severe, it is a/w phonophobia, phonophobia, osmophobia, GI upset/nausea, a little off-balance, wants to rest. right eye watery. Denies facial weakness or paresthesias. He has 2-3 attacks per month which last 1-2 days. In [place], he has had normal MRI brain. He has tried Toradol inj- helped some. Now using Aleve w/ some effect. 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 Review of Systems Const All systems reviewed & are unremarkable except as noted in HPI and below Physical Exam Vital Signs: Last Vital Signs Pulse 59 11/24/23 08:16 BP 106/74 11/24/23 08:16 Pulse Ox 98 11/24/23 08:16 Oxygen Delivery Method Room Air 11/24/23 08:16 Const General: cooperative and no acute distress Orientation/consciousness: patient oriented x3 HEENT Head: Yes normocephalic Resp Effort & Inspection: normal respiratory effort and able to speak in complete sentences Neuro General: patient oriented x3, gait normal and CN's II-XI intact bilaterally Cognition (Neuro): normal cognition Motor exam (neuro): 5/5 motor strength present throughout Psych Appearance: grossly normal Mental Status: mental status grossly normal Speech and movement: Normal speech and movement present Affect: normal affect Attitude: cooperative Assessment & Plan Assessment & Plan (1) Seizure: Comment: complex absence seizures- dx 2003 Code(s): R56.9 - Unspecified convulsions (2) Cognitive dysfunction: Code(s): F09 - Unspecified mental disorder due to known physiological condition (3) Migraine without aura: Code(s): G43.009 - Migraine without aura, not intractable, without status migrainosus Plan For seizure: Increase Keppra from 1250mg bid to 1500mg bid- in hopes this reduces breakthrough absence seizures.. Continue Magnesium. ?For memory: Will again check labs for common etiologies of memory loss- labs slips given to pt. Neuro-psych eval as ordered. Hold MRI order- brain MRI in 2021 was normal, and cognitive s/s began prior to 2021. For migraine w/o aura: Trial Ubrogepant (Ubrelvy) 100mg tab, 1/2 - 1 tab (50-100mg) at onset of headache, may repeat in 2 hours. Max of 2 tabs (200mg) per 24 hours. May adjunct with OTC Naproxen 440mg q 12 hrs prn. Do not take w/ Butalbital (Fioricet or Fiorinal). Previous trials: Toradol inj- helpful. Migraine treatment contraindications- All triptans d/t symptomatic seizure d/o. ? f/u in 4 months or sooner prn Medications: New levetiracetam take w/ 1000mg bid to total 1500mg/dose 500 mg PO Q12H 30 days 60 tabs 6RF ubrogepant (Ubrelvy) take at onset of migraine, may repeat in 2hrs (may take w/ Aleve) 50 - 100 mg (0.5 - 1 x 100 mg) PO ONCE 30 days PRN 16 tabs 3RF migraine headache MDD 2 tabs Refilled levetiracetam take w/ 250mg tab = 1250mg q 12hrs 1,000 mg PO Q12H 30 days 60 tabs 6RF Discontinued levetiracetam take w/ 1000mg tab = 1250mg q 12hrs Discontinued Reason: Doctor's Order 250 mg PO Q12H 30 days 60 tabs 6RF Coding Level of Care Code Est Pt Level 4 (77072) Diagnoses Seizure R56.9 Cognitive dysfunction F09 Migraine without aura G43.009
[2023-11-24 08:16] VITALS: BP 106/74; PULSE 59; O2SAT 98
== END 2023-11-24 09:01 | disposition home or self-care (01) ==
PROVIDERS: PCP Physician Assistant Medical; Visit Provider Nurse Practitioner Family
DX: G40.A09 Absence epileptic syndrome, not intractable, without status epilepticus (principal); R41.89 Other symptoms and signs involving cognitive functions and awareness; G43.009 Migraine without aura, not intractable, without status migrainosus
CPT/HCPCS: 99214

== ENCOUNTER → 2023-11-24 08:05 | Outpatient (BNVA) | payer MEDICAID, SELFPAY | PROVIDERS: PCP Physician Assistant Medical; Visit Provider Nurse Practitioner Family | DX: R56.9 Unspecified convulsions (principal); F09 Unspecified mental disorder due to known physiological condition; G43.009 Migraine without aura, not intractable, without status migrainosus | CPT/HCPCS: 99212 ==

== ENCOUNTER 2023-12-08 14:37 | Outpatient (AMB) | payer MEDICAID, SELFPAY ==
[2023-12-08 14:52] VITALS: BP 119/75; PULSE 85; O2SAT 99; BMI 24.0
--- NOTE | 2023-12-08 14:52 | MHC.OFFVIS ---
Intake Vital Signs 12/08/23 14:52 Height 5 ft 5 in Weight 144 lb BMI 24.0 BP 119/75 Blood Pressure Location Lt brachial Position Sitting Pulse 85 Pulse Oximetry (%) 99 Intake Visit Reasons: Ref.[facility] [place] Neurology &Sleep,HIV Sewer Repairer Required: Yes Sewer Repairer Name: Herb Jerez CMA Information Interpreted: clinical only Allergies No Known Allergies Allergy (Verified 12/08/23 14:53) HPI Ref.[facility] [place] Neurology &Sleep,HIV HPI Details He is referred from Neurology for concern over syphilis as possible cause of neurologic symptoms. He has been seeing Neurology for problems including leg numbness as well as weakness according to him. He has HIV and is now on Cabenuva. He has been undetectable and CD4 counts in 600s. He has no OIs. He had syphilis titers 1:2 for years. He has been treated with three IM PCN shots within the last couple years.At that time he had reddish area penis which disappeared. He has no eye or ear problems. He has no neurologic symptoms. 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 [employer] All systems reviewed & are unremarkable except as noted in HPI and below Physical Exam Vital Signs: Last Vital Signs Pulse 85 12/08/23 14:52 BP 119/75 12/08/23 14:52 Pulse Ox 99 12/08/23 14:52 BMI result Body Mass Index 24.0 Const General: cooperative HEENT Head: Yes normal to inspection Face and sinus: Yes normal facial exam Mouth: Normal oral and palatal mucosa present Teeth and gingiva: dentition normal Eyes General: appearance normal, both eyes and all related structures Pupils: Equal, round and reactive pupils present Resp Effort & Inspection: normal respiratory effort Cardio Rate: regular rate Rhythm: regular rhythm GI Palpation (GI): Soft to palpation and nontender General: Yes no CVA tenderness Back/Spine/Pelvis Back: no CVA tenderness Skin General skin exam: no rashes or lesions noted Neuro General: moves all extremities Cranial nerves: Yes Equal, round and reactive pupils present Extrem General: Yes normal to inspection Psych Appearance: grossly normal Assessment & Plan Assessment & Plan (1) Positive RPR test: Comment: He has no signs of active syphilis He has no signs of neurosyphilis. 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 HIV is well controlled. 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 Monitor RPR titers every six months. Treatment if over 1:8 with one dose PCN IM 2.4 mU (2) HIV (human immunodeficiency virus infection): Code(s): B20 - Human immunodeficiency virus [HIV] disease (3) Fibromyalgia, primary: Code(s): M79.7 - Fibromyalgia Plan: n/a (4) Low back pain, unspecified: Code(s): M54.50 - Low back pain, unspecified Qualifiers: Chronicity: chronic Back pain laterality: bilateral Sciatica presence: without sciatica Qualified Code(s): M54.50 - Low back pain, unspecified; G89.29 - Other chronic pain Plan: na Plan as above Coding Level of Care Code New Pt Level 3 (62912) Diagnoses Positive RPR test A53.0 HIV (human immunodeficiency virus infection) B20 Fibromyalgia, primary M79.7 Chronic bilateral low back pain without sciatica M54.50; G89.29 Chronicity: chronic Back pain laterality: bilateral Sciatica presence: without sciatica
== END 2023-12-08 15:20 | disposition home or self-care (01) ==
PROVIDERS: PCP Physician Assistant Medical; Visit Provider Internal Medicine
DX: A53.0 Latent syphilis, unspecified as early or late (principal); B20 Human immunodeficiency virus [HIV] disease; M79.7 Fibromyalgia; M54.50 Low back pain, unspecified; G89.29 Other chronic pain
CPT/HCPCS: 99203

== ENCOUNTER → 2023-12-08 14:37 | Outpatient (BNVA) | payer MEDICAID, SELFPAY | PROVIDERS: PCP Physician Assistant Medical; Visit Provider Internal Medicine | DX: M54.50 Low back pain, unspecified (principal); M79.7 Fibromyalgia; A53.0 Latent syphilis, unspecified as early or late; B20 Human immunodeficiency virus [HIV] disease; G89.29 Other chronic pain | CPT/HCPCS: 99202 ==

== ENCOUNTER → 2024-03-07 07:39 | Outpatient (BNVA) | payer MEDICAID, SELFPAY | PROVIDERS: PCP Physician Assistant Medical; Visit Provider Student in an Organized Health Care Education/Training Program | DX: M79.7 Fibromyalgia (principal) | CPT/HCPCS: 99212 ==

== ENCOUNTER 2024-03-28 07:54 | Outpatient (AMB) | payer MEDICAID, SELFPAY ==
--- NOTE | 2024-03-28 08:01 | MHC.OFFVIS ---
Vital Signs 03/28/24 08:09 Height 5 ft 5 in Weight 142 lb 6 oz BMI 23.7 BP 115/64 Blood Pressure Location Rt brachial Position Sitting Pulse 74 Pulse Source Pulse Oximeter Pulse Oximetry (%) 97 Oxygen Delivery Method Room Air Intake Visit Reasons: 4 mnts-LVM Intake Note: Patient presents for 4 months f/u. Allergies No Known Allergies Allergy (Verified 03/28/24 08:04) HPI Comments Details: 43-yr-old male presents for f/u visit. After the last visit, pt's labs showed mild anemia. Also showed + RPR 1:2. Pt has known h/o +RPR and was prveiously tx's w/ PCN. He had ID consult, who did not feel pt needed repeat tx, however advised that RPRP be rechecked q 6 months and tx if RPR > 1:8. Pt states Teresa TERAN at [facility] will monitro this, his RPR in February was + 1:2. Pt reports he is scheduled for a GI consult in April d/t postpandrial GI upset, nausea, pallor, dizziness, and fluctuating constipation and diarrhea. He is having a few breakthrough absence seizures. Denies any interval convulsive seizures. He is compliant w/ Keppra. His gait is stable. He states ubrelvy works very well w/o s/e for his migraine headache. Typically has 6 migraine days per month, which subside quickly w/ Baseline headache characteristics: Severe, right occipital pressure pulsating headache, more severe it is a/w phonophobia, phonophobia, osmophobia, GI upset/nausea, a little off-balance, wants to rest, right eye watery. 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 Physical Exam Vital Signs: Last Vital Signs Pulse 74 03/28/24 08:09 BP 115/64 03/28/24 08:09 Pulse Ox 97 03/28/24 08:09 Oxygen Delivery Method Room Air 03/28/24 08:09 BMI result Body Mass Index 23.7 Const General: cooperative and no acute distress Orientation/consciousness: patient oriented x3 Resp Effort & Inspection: normal respiratory effort and able to speak in complete sentences Neuro General: patient oriented x3 Cranial nerves: Yes CN's II-XII intact bilaterally Cognition (Neuro): normal cognition Psych Appearance: grossly normal Mental Status: mental status grossly normal Speech and movement: Normal speech and movement present Affect: normal affect Attitude: cooperative Assessment & Plan Assessment & Plan (1) Migraine without aura: Code(s): G43.009 - Migraine without aura, not intractable, without status migrainosus Category: Medical (2) Positive RPR test: Comment: He has no signs of active syphilis He has no signs of neurosyphilis. 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 HIV is well controlled. 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 Continue Magnesium. ?For memory: Reviewed labs- mild anemia- pt to f/u w/ GI. + RPR, chronic- monitor RPR per ID- PCP checking. Neuro-psych eval as ordered. Brain MRI in 2021 was normal, and cognitive s/s began prior to 2021. For migraine w/o aura: Continue Ubrogepant (Ubrelvy) 100mg tab, 1/2 - 1 tab (50-100mg) at onset of headache, may repeat in 2 hours. Max of 2 tabs (200mg) per 24 hours. May adjunct with OTC Naproxen 440mg q 12 hrs prn. Previous trials: Toradol inj- helpful. Migraine treatment contraindications- All triptans d/t symptomatic seizure d/o. For LLE: Monitor. If pain, weakness worsen- refer back to PT, consider adidtional work-up ? f/u in 6 months or sooner prn Coding Level of Care Code Est Pt Level 4 (45307) Diagnoses Migraine without aura G43.009 Positive RPR test A53.0 Cognitive dysfunction F09 Seizure R56.9
[2024-03-28 08:09] VITALS: BP 115/64; PULSE 74; O2SAT 97; BMI 23.7
== END 2024-03-28 08:41 | disposition home or self-care (01) ==
PROVIDERS: PCP Physician Assistant Medical; Visit Provider Nurse Practitioner Family
DX: G43.009 Migraine without aura, not intractable, without status migrainosus (principal); B20 Human immunodeficiency virus [HIV] disease; A53.0 Latent syphilis, unspecified as early or late; R56.9 Unspecified convulsions; R41.89 Other symptoms and signs involving cognitive functions and awareness
CPT/HCPCS: 99214

== ENCOUNTER → 2024-03-28 07:54 | Outpatient (BNVA) | payer MEDICAID, SELFPAY | PROVIDERS: PCP Physician Assistant Medical; Visit Provider Nurse Practitioner Family | DX: G43.009 Migraine without aura, not intractable, without status migrainosus (principal); R56.9 Unspecified convulsions; A53.0 Latent syphilis, unspecified as early or late; F09 Unspecified mental disorder due to known physiological condition | CPT/HCPCS: 99212 ==

== ENCOUNTER → 2024-04-02 13:56 | Outpatient (RCR) | payer OTHER, SELFPAY | END | disposition home or self-care (01) | LOC: HO.OT 06-30 10:59 | PROVIDERS: PCP Physician Assistant Medical; Visit Provider Orthopaedic Surgery | DX: Z98.890 Other specified postprocedural states (principal) | CPT/HCPCS: 29125; 97035; 97110; 97140; 97165; 97535; 97760 ==

== ENCOUNTER 2024-08-02 04:10 | Emergency (ER) | payer MEDICAID, SELFPAY ==
[2024-08-02 04:13] VITALS: BP 141/64; PULSE 62; RESP 18; TEMP 36.9; O2SAT 100; BMI 22.4
[2024-08-02 04:21] VITALS: BP 140/80; PULSE 60; RESP 20; TEMP 37.1; O2SAT 100
[2024-08-02 04:52] LABS: Basophils Percent Auto 0.2 % (0-2); Hematocrit 39.9 % (42.0-52.0); Hemoglobin 13.7 g/dl (14.0-18.0); Imm Gran Abs Auto 0.07 X10*3/uL (0.00-0.03); Imm Gran Pct Auto 0.4 % (0.0-0.4); Lymphocytes Absolute Auto 1.2 X10*3/uL (1.2-4.9); Lymphocytes Percent Auto 6.8 % (20-40); MANUAL DIFF FLAG NO; Mean Corpuscular HGB Conc 34.3 g/dl (31.0-36.0); Mean Corpuscular Hemoglobin 33.3 pg (27.0-33.0); Mean Corpuscular Volume 96.8 fL (80.0-98.0); Mean Platelet Volume 9.4 fL (9.4-12.4); Monocytes Absolute Auto 0.7 X10*3/uL (0.1-1.2); Monocytes Percent Auto 4.1 % (2-11); Neutrophils Absolute Auto 15.3 x10*3/uL (2.0-8.3); Neutrophils Percent Auto 88.5 % (45-73); Platelet Count 257 X10*3/uL (160-400); Red Blood Count 4.12 X10*6/uL (4.60-5.80); Red Cell Distribution Width 11.9 % (11.0-16.0); White Blood Count 17.3 X10*3/uL (4.8-10.8)
[2024-08-02 05:06] LABS: Alanine Aminotransferase 15 U/L (0-40); Albumin Level 4.5 g/dL (3.5-5.0); Alkaline Phosphatase 73 U/L (39-117); Anion Gap 12 (12-20); Aspartate Amino Transferase 18 U/L (5-37); Bilirubin Direct 0.1 mg/dL (0.0-0.5); Bilirubin Total 0.5 mg/dL (0.0-1.0); Blood Urea Nitrogen 20 mg/dL (9-16); Calcium 10.2 mg/dL (8.4-10.2); Carbon Dioxide 27 mmol/L (22-29); Chloride 104 mmol/L (96-108); Estimated Glomerular Filt Rate > 60; Glucose Random 168 mg/dL (60-115); Lipase 22 U/L (8-78); Potassium 4.4 mmol/L (3.3-5.1); Sodium 139 mmol/L (135-145); Total Protein 7.5 g/dL (6.5-8.0)
--- NOTE | 2024-08-02 05:26 | ED.GENADULT ---
HPI - General Adult General Chief complaint: Abdominal Pain Stated complaint: stomach pain, unable to eat Time Seen by Provider: 08/02/24 05:26 History of Present Illness ED Provider: Keo DELGADO narrative: The patient is a 44-year-old male with a history of HIV on anti-retroviral medications. He also has a history of chronic mental illness and takes medications for his chronic mental illness. He says he has been having a lot of stomach pains recently and has had trouble taking his regular medications. He is scheduled for an endoscopy soon to help evaluate for this. He comes to the emergency room [facility] because he developed severe abdominal pain at around 22:00 earlier this evening. He said that his symptoms began when he was in bed. Earlier in the evening he had had some Ivor[place] food. He has been feeling reasonably well at that time. He has had some nausea associated with tonight's pain and 1 episode of vomiting. He indicates that the pain is in his epigastrium. He thinks he might have once had a similar kind of pain in the past but that was a long time ago. He has had no urinary symptoms, no diarrhea or constipation. No fever, sweats, chills. Related Data Home Medications ?Medication ?Instructions ?Recorded ?Confirmed lansoprazole 30 mg delayed 30 mg PO DAILY 04/28/22 03/07/24 release,disintegrating tablet (Prevacid SoluTab) rosuvastatin 5 mg tablet 5 mg PO DAILY 08/09/22 03/07/24 cabotegravir ER 600 mg/3 6 ml IM [id number] 09/09/22 03/07/24 mL-rilpivirine ER 900 mg/3mL IM suspension,ER (Cabenuva) mirtazapine 30 mg tablet 30 mg PO BEDTIME depressive 09/09/22 03/07/24 disorder prazosin 2 mg capsule 2 mg PO BEDTIME 09/09/22 03/07/24 lansoprazole 30 mg capsule,delayed 30 mg PO BEDTIME 03/09/23 03/07/24 release aripiprazole 20 mg tablet 20 mg PO DAILY 03/07/24 03/07/24 nortriptyline 25 mg capsule 50 mg PO 03/28/24 Previous Rx's ?Medication ?Instructions ?Recorded ubrogepant 100 mg tablet (Ubrelvy) 50 - 100 mg (0.5 - 1 x 100 mg) PO 11/27/23 ONCE PRN migraine headache 30 days #16 tabs magnesium oxide 400 mg (241.3 mg 400 mg PO BEDTIME 30 days #30 tabs 01/30/24 magnesium) tablet pregabalin 150 mg capsule 150 mg PO DAILY #30 caps 03/07/24 levetiracetam 1,000 mg tablet 1,000 mg PO Q12H 30 days #60 tabs 07/30/24 levetiracetam 500 mg tablet 500 mg PO Q12H 30 days #60 tabs 07/30/24 omeprazole 40 mg capsule,delayed 40 mg PO DAILY #30 caps 08/02/24 release ondansetron 4 mg disintegrating 4 mg PO Q6H PRN nausea and 08/02/24 tablet vomiting #10 tabs sucralfate 1 gram tablet 1 g PO TID PRN abdominal pain #60 08/02/24 tabs Allergies Allergy/AdvReac Type Severity Reaction Status Date / Time No Known Allergies Allergy Verified 08/02/24 04:16 Review of Systems Review of Systems: Yes all other systems are reviewed and are negative PMF Past Medical History Medical History Mood disorder Fibromyalgia, primary HIV (human immunodeficiency virus infection) Chronic back pain Seizure Left leg weakness Surgical History History of carpal tunnel release of both wrists Family History Family History Father Drug abuse and dependence Unknown Cancer of bone Maternal Grandmother Diabetes Heart attack Maternal Grandfather Stroke Social History Social History Household Members: Family Housing: House Alcohol intake: never Patient Tobacco Use Status: Never used Tobacco Smoked in Last 30 Days: No Use of substances other than those prescribed or required for medical reasons: No Substance Use Type: Marijuana Advance Directives: No Advance Directives Information Provided: Yes Do you have a plan to hurt others: No Plan service: No Current occupational status: unemployed 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 He does not appear in overt distress or seem toxic in any way. HENMT Other: Face is symmetrical. Mucous membranes moist. Eyes Other: Pupils are round equal, conjunctivae clear Neck Neck: Yes full ROM and Yes no JVD Resp Effort & Inspection: normal respiratory effort Auscultation: clear to auscultation bilaterally Cardio Rate: regular rate Rhythm: regular rhythm Heart sounds: S1 normal heart sound present and S2 normal heart sound present GI Other: The abdomen is soft. He indicates that his pain is primarily in the epigastrium. He did not have any apparent tenderness in any portion of his abdomen. He had a negative Mihcaels's sign. I could palpate quite deeply into his epigastrium without any guarding. Skin Other: Skin is pale and dry and unremarkable. Neuro Other: The patient is awake and alert with a normal mental status. Cranial nerves are grossly intact. He moves his extremities normally and seems grossly neurologically intact. Extrem Other: No calf tenderness, no swelling, no edema, no asymmetry Medications Administered Discontinued Medications Generic Name Dose Route Start Last Admin Trade Name Eliuq PRN Reason Stop Dose Admin Al Hydroxide/Mg Hydroxide 30 ml 08/02/24 06:55 08/02/24 07:05 Magnesium Hydrox/Alum Hydrox 30 Ml Oral.Susp PO 08/02/24 06:56 30 ml ONCE ONE Administration Sucralfate 1 gm 08/02/24 05:31 08/02/24 05:38 Sucralfate Oral Suspension 1 Gm/10 Ml Oral.Susp PO 08/02/24 05:32 1 gm ONCE ONE Administration Medical Decision Making Medical Decision Making MDM Narrative: The patient presents complaining of epigastric pain that started after eating take out Ivorian food earlier this evening. His physical exam seems very benign. His laboratory testing [place] [id number]. However he has an undetectable C-reactive protein. Lipase is normal. LFTs are normal. Metabolic panel is unremarkable. Given that the patient's CRP is undetectable I think the patient's elevated white count can probably be attributed to a stress response. His physical exam is very reassuring. I suspect this is gastritis pain. The patient did not get much relief from sucralfate. I spoke to the patient about possibly doing a CT scan but ultimately the patient seemed comfortable being discharged with treatment for gastritis. I will prescribe omeprazole, sucralfate, and ondansetron. Lab Data 08/02/24 04:47 08/02/24 04:47 Labs: Lab Results 08/02/24 08/02/24 Range/Units 04:47 06:29 WBC 17.3 H (4.8-10.8) X10*3/uL RBC 4.12 L (4.60-5.80) X10*6/uL Hgb 13.7 L (14.0-18.0) g/dl Hct 39.9 L (42.0-52.0) % MCV 96.8 (80.0-98.0) fL MCH 33.3 H (27.0-33.0) pg MCHC 34.3 (31.0-36.0) g/dl RDW 11.9 (11.0-16.0) % Plt Count 257 D (160-400) X10*3/uL MPV 9.4 (9.4-12.4) fL Immature Gran % (Auto) 0.4 (0.0-0.4) % Neut % (Auto) 88.5 H (45-73) % Lymph % (Auto) 6.8 L (20-40) % Hyde % (Auto) 4.1 (2-11) % Eos % (Auto) 0.0 (0-4) % Baso % (Auto) 0.2 (0-2) % Lymph # (Auto) 1.2 (1.2-4.9) X10*3/uL [place] # (Auto) 0.7 (0.1-1.2) X10*3/uL Eos # (Auto) 0.0 (0.0-0.4) X10*3/uL Baso # (Auto) 0.0 (0.0-0.2) X10*3/uL Abs Immat Gran (auto) 0.07 H (0.00-0.03) X10*3/uL Absolute Neuts (auto) 15.3 H (2.0-8.3) x10*3/uL Absolute Nucleated RBC 0.000 (0.0-0.012) X10*3/uL Nucleated RBC % (auto) 0.0 (0.0-0.2) /100WBC Sodium 139 (135-145) mmol/L Potassium 4.4 (3.3-5.1) mmol/L Chloride 104 (96-108) mmol/L Carbon Dioxide 27 (22-29) mmol/L Anion Gap 12 (12-20) BUN 20 H (9-16) mg/dL Creatinine 1.22 (0.5-1.4) mg/dL Estim Creat Clear Calc 68.0 Estimated GFR > 60 Random Glucose 168 H (60-115) mg/dL Calcium 10.2 D (8.4-10.2) mg/dL Total Bilirubin 0.5 (0.0-1.0) mg/dL Direct Bilirubin 0.1 (0.0-0.5) mg/dL AST 18 (5-37) U/L ALT 15 (0-40) U/L Alkaline Phosphatase 73 (39-117) U/L C-Reactive Protein < 0.10 (< or = 0.50) mg/dL Total Protein 7.5 (6.5-8.0) g/dL Albumin 4.5 (3.5-5.0) g/dL Lipase 22 (8-78) U/L Urine Color Yellow Urine Appearance Clear Urine pH 8.0 (5.0-9.0) Ur Specific [place] 1.025 (1.005-1.025) Urine Protein Trace (Neg-Trace) mg/dL Urine Glucose (UA) Negative (Negative) mg/dL Urine Ketones Negative (Negative) mg/dL Urine Blood Trace H (Negative) Urine Nitrite Negative (Negative) Ur Leukocyte Esterase Negative (Negative) Urine RBC 6-10 H (0-2) /HPF Urine WBC 0-5 (0-5) /HPF Ur Squamous Epith Cells 0-2 (0-2) /HPF Urine Bacteria None Seen (None Seen) Hyaline Casts 0-2 (0-2) /LPF Discharge Plan Discharge Clinical Impression: Epigastric abdominal pain Patient Disposition: Home, Self-Care Instructions: Gastritis (ED) Additional Instructions: I think that the location of your pain is most suggestive of a condition called gastritis. Gastritis is an irritation of the lining of the stomach caused by problems with the stomach acid. I have sent a prescription for medication called omeprazole to your pharmacy. Omeprazole reduces stomach acid production. I have also sent a prescription for medication called sucralfate to your pharmacy. This medication is a super of the lining of the stomach. You may take this up to 3 times a day as needed. I have also sent a prescription for medication called ondansetron which you may use every 6 hours as needed for nausea. Please keep your appointment on Monday for a colonoscopy as scheduled. Please also stay in touch with your regular medical provider at the [facility]. If you feel significantly worse please return to the emergency department. Prescriptions: New omeprazole 40 mg capsule,delayed release(DR/EC) 40 mg PO DAILY Qty: 30 0RF sucralfate 1 gram tablet 1 g PO TID PRN (Reason: abdominal pain) Qty: 60 0RF ondansetron 4 mg tablet,disintegrating 4 mg PO Q6H PRN (Reason: nausea and vomiting) Qty: 10 0RF No Action Ubrelvy 100 mg tablet 50 - 100 mg PO ONCE MDD 2 tabs PRN (Reason: migraine headache) 30 Days Qty: 16 3RF Rx Instructions: take at onset of migraine, may repeat in 2hrs (may take w/ Aleve) magnesium oxide 400 mg (241.3 mg magnesium) tablet 400 mg PO BEDTIME 30 Days Qty: 30 6RF Rx Instructions: may hold for loose stools levetiracetam 500 mg tablet 500 mg PO Q12H 30 Days Qty: 60 6RF Rx Instructions: take w/ 1000mg bid to total 1500mg/dose levetiracetam 1,000 mg tablet 1,000 mg PO Q12H 30 Days Qty: 60 6RF Rx Instructions: take w/ 500mg tab = 1500 mg q 12hrs lansoprazole [Prevacid SoluTab] 30 mg tablet,disintegrat, delay rel 30 mg PO DAILY Cabenuva 600 mg/3 mL- 900 mg/3 mL suspension,extended release 6 ml IM [id number] prazosin 2 mg capsule 2 mg PO BEDTIME mirtazapine 30 mg tablet 30 mg PO BEDTIME rosuvastatin 5 mg tablet 5 mg PO DAILY lansoprazole 30 mg capsule,delayed release(DR/EC) 30 mg PO BEDTIME aripiprazole 20 mg tablet 20 mg PO DAILY pregabalin 150 mg capsule 150 mg PO DAILY Qty: 30 2RF nortriptyline 25 mg capsule 50 mg PO Referrals: [facility] [Provider Group] (epigastric pain suspect gastritis) Interventions: ED Discharge Assessment Last Done: 08/02/24 07:23 Discharge Date/Time: 08/02/24 07:27 Print Language: Stateless
[2024-08-02] MEDS: Sucralfate Oral Suspension 1 GM/10 ML ORAL.SUSP PO (05:38)
[2024-08-02 06:04] LABS: C Reactive Protein < 0.10 mg/dL (< or = 0.50)
[2024-08-02 06:26] VITALS: BP 143/78; PULSE 59; RESP 16; TEMP 37.5; O2SAT 97
[2024-08-02 06:44] LABS: Appearance Urine Clear; Color Urine Yellow; Glucose Urine UA Negative (Negative); Leukocyte Esterase Urine Negative (Negative); Nitrite Urine Negative (Negative); Specific Gravity - Urine 1.025 (1.005-1.025); UMIC TRIGGER UACC YES; Urine Blood Trace (Negative); Urine Ketones Negative (Negative); Urine Protein Trace mg/dL (Neg-Trace)
[2024-08-02 06:49] LABS: Bacteria Urine None Seen (None Seen); Hyaline Casts Urine 0-2 /LPF (0-2); Squamous Epithelial Cell Urine 0-2 /HPF (0-2); WBC Urine 0-5 /HPF (0-5)
[2024-08-02] MEDS: Magnesium Hydrox/Alum Hydrox 30 ML ORAL.SUSP PO (07:05)
--- NOTE | 2024-08-02 07:12 | PC.NURSE ---
pt is alert and oriented, skin appropriate for ethnicity, respirations even and unlabored, pt reports all over abd pain, bowel sounds in all 4 quadrants-hyperactive in the lower quadrants, abd soft but tender all over, pt reports nausea but no vomiting while in the ed.
[2024-08-02 07:20] VITALS: BP 144/79; PULSE 57; RESP 16; TEMP 36.9; O2SAT 98
[2024-08-02 07:23] VITALS: BP 144/79; PULSE 57; RESP 16; TEMP 36.9; O2SAT 98
== END 2024-08-02 07:27 | disposition home or self-care (01) ==
PROVIDERS: Emergency Provider Emergency Medicine; PCP Physician Assistant
DX: R10.13 Epigastric pain (principal); B20 Human immunodeficiency virus [HIV] disease; Z79.899 Other long term (current) drug therapy; Z79.02 Long term (current) use of antithrombotics/antiplatelets
CPT/HCPCS: 36415; 80048; 80076; 81001; 83690; 85025; 86140; 99283; 99284

== ENCOUNTER 2024-09-09 07:33 | Outpatient (AMB) | payer MEDICAID, SELFPAY ==
--- NOTE | 2024-09-09 07:37 | MHC.OFFVIS ---
Vital Signs 09/09/24 07:44 Height 5 ft 2 in Weight 133 lb 6.075 oz BMI 24.4 BP 90/62 Blood Pressure Location Lt brachial Position Sitting Respiration 16 Pulse 73 Pulse Source Pulse Oximeter Pulse Oximetry (%) 98 Oxygen Delivery Method Room Air Intake Visit Reasons: FMS/CM Intake Note: Patient presents for FMS follow up. Junior Technical Writer Required: Yes Junior Technical Writer Language: Diploma Dental Assistant Services: Junior Technical Writer Present Junior Technical Writer Name: [id number] Allergies No Known Allergies Allergy (Verified 09/09/24 07:40) Medication List - Last Reconciled 09/09/24 by Mariana Bloom MD aripiprazole 20 mg PO DAILY cabotegravir-rilpivirine 600 mg/3 mL- 900 mg/3 mL ER (Cabenuva) 6 mL IM [id number] lansoprazole (Prevacid SoluTab) 30 mg PO DAILY lansoprazole 30 mg PO BEDTIME levetiracetam 500 mg PO Q12H 30 days levetiracetam 1,000 mg PO Q12H 30 days magnesium oxide 400 mg PO BEDTIME 30 days mirtazapine 30 mg PO BEDTIME nortriptyline 50 mg PO omeprazole 40 mg PO DAILY ondansetron 4 mg PO Q6H PRN prazosin 2 mg PO BEDTIME pregabalin 150 mg PO DAILY rosuvastatin 5 mg PO DAILY sucralfate 1 g PO TID PRN ubrogepant (Ubrelvy) 50 - 100 mg (0.5 - 1 x 100 mg) PO ONCE PRN 30 days MDD 2 tabs HPI Comments Details: Pt presents today for FM follow up. States that he has been in more pain since his appendicitis surgery 08/03/2024. He is walking with a cane. He continues to have pain in his neck and low back. He gets physical therapy. States that he gets trigger point injections in his neck and trapezius muscles when needed. Continues to take Lyrica 150 mg daily Initial history: This is a 42-year-old male with past medical history of HIV on HAART , fibromyalgia, chronic back pain, seizures who presents for evaluation of diffuse pain. The condition started since he was 15. He was evaluated by multiple doctors in [place] and received numerous medications. He was diagnosed with fibromyalgia. Could not tolerate gabapentin and Cymbalta. He was started on Lyrica around 2008 and this medication gave him significant relief. He has pain everywhere. Especially of his back, neck, shoulders, hands, feet. He feels like somebody is bowling him from his neck in his legs. Pain is worse with activity and also worse in the morning. Occasional swelling of his fingers. He was seen by pain management and received 2 injections in his spine which provided significant relief. [facility] Medical History Mood disorder Fibromyalgia, primary HIV (human immunodeficiency virus infection) Chronic back pain Seizure Left leg weakness Surgical History History of appendectomy History of carpal tunnel release of both wrists Family History Father Drug abuse and dependence Unknown Cancer of bone Maternal Grandmother Diabetes Heart attack Maternal Grandfather Stroke Social History Household Members: Family Housing: House Alcohol intake: never Patient Tobacco Use Status: Never used Tobacco Substance Use Type: Marijuana service: No Current occupational status: unemployed 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 Review of Systems Const Reports weakness Musc Reports back pain, Reports arthralgias, Reports muscle weakness and Reports stiffness Neuro Details: Muscle spasm Reports weakness Psych Reports abnormal sleep pattern, Reports anxiety and Reports depression Physical Exam Vital Signs: Last Vital Signs Pulse 73 09/09/24 07:44 Resp 16 09/09/24 07:44 BP 90/62 09/09/24 07:44 Pulse Ox 98 09/09/24 07:44 Oxygen Delivery Method Room Air 09/09/24 07:44 BMI result Body Mass Index 24.4 Const General: cooperative, healthy appearing, comfortable, no acute distress and well developed Nutritional Appearance: average body habitus Orientation/consciousness: patient oriented x3 Limitations: ambulation with cane HEENT Head: Yes normocephalic and Yes atraumatic Resp Effort & Inspection: normal respiratory effort and able to speak in complete sentences Auscultation: clear to auscultation bilaterally Cardio Rate: regular rate Rhythm: regular rhythm Neuro General: patient oriented x3 Extrem Other: Numerous fibromyalgia tender points Mild osteoarthritic changes (Inna's nodes) of his hands but no swelling Assessment & Plan Assessment & Plan (1) Fibromyalgia, primary: Code(s): M79.7 - Fibromyalgia Category: Medical Plan: This is a 44-year-old male with past medical history HIV on HAART, fibromyalgia, seizure disorder presents for follow-up. Fibromyalgia symptoms are little worse recently since his appendicitis surgery. Likely because patient is less active. Reassure patient that symptoms should improve as his surgical wound is healing up. Continue with Lyrica 150 mg daily Follow-up in 6 months Plan I spent 15 minutes reviewing patient's chart, evaluating patient, counseling patient and documenting in the chart Medications: Refilled pregabalin 150 mg PO DAILY 30 caps 5RF M79.7 - Fibromyalgia Coding Level of Care Code Est Pt Level 3 (64383) Diagnoses Fibromyalgia, primary M79.7
[2024-09-09 07:44] VITALS: BP 90/62; PULSE 73; RESP 16; O2SAT 98; BMI 24.4
== END 2024-09-09 08:04 | disposition home or self-care (01) ==
LOC: HO.RHE 07:34
PROVIDERS: PCP Physician Assistant; Visit Provider Student in an Organized Health Care Education/Training Program
DX: M79.7 Fibromyalgia (principal)
CPT/HCPCS: 99213

== ENCOUNTER → 2024-09-09 07:33 | Outpatient (BNVA) | payer MEDICAID, SELFPAY | PROVIDERS: PCP Physician Assistant; Visit Provider Student in an Organized Health Care Education/Training Program | DX: M79.7 Fibromyalgia (principal) | CPT/HCPCS: 99212 ==

== ENCOUNTER 2024-10-16 08:45 | Outpatient (AMB) | payer MEDICAID, SELFPAY ==
--- NOTE | 2024-10-16 08:59 | MHC.OFFVIS ---
Vital Signs 10/16/24 09:00 Height 5 ft 2 in Weight 133 lb BMI 24.3 BP 104/78 Blood Pressure Location Rt brachial Position Sitting Pulse 62 Pulse Source Pulse Oximeter Pulse Oximetry (%) 98 Oxygen Delivery Method Room Air Intake Visit Reasons: 7 [facility] F/U Intake Note: Patient presents for 7 month follow up Allergies No Known Allergies Allergy (Verified 10/16/24 09:03) HPI Comments Details: Pt presents today for Migraine follow up. States that he has been in more pain since his appendectomy 2023, surgery. He continues to have pain in his neck and low back. States that he gets trigger point injections in his neck and trapezius muscles when needed. Continues to take Lyrica 150 mg daily Episodes of epilepsy, well controlled by Kepp, continues to get lost in conversation and stops talking, and forgets midsentence. Vision changes and blurriness is the prodrome. Pressure in the eyes is high, and uses Latanaprost, November 2024, trabeculectomy for narrow angle closure glaucoma. Headaches daily prevention uses Ubrelvy. Spine and sport referred for PT post surgical procedure Appendectomy. Going to PT for his neck currently and will continue to abdominal strengthening. Diet is poor lost 20 lbs and sleep is fragmented, with excessive day time sleepiness, HST was never done. Sees a Psychologist regularly every week. Initial history: This is a 42-year-old male with past medical history of HIV on HAART , fibromyalgia, chronic back pain, seizures who presents for evaluation of diffuse pain. The condition started since he was 15. He was evaluated by multiple doctors in [place] and received numerous medications. He was diagnosed with fibromyalgia. Could not tolerate gabapentin and Cymbalta. He was started on Lyrica around 2008 and this medication gave him significant relief. He has pain everywhere. Especially of his back, neck, shoulders, hands, feet. He feels like somebody is bowling him from his neck in his legs. Pain is worse with activity and also worse in the morning. Occasional swelling of his fingers. He was seen by pain management and received 2 injections in his spine which provided significant relief. 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 occupational status: unemployed 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 Review of Systems Const All systems reviewed & are unremarkable except as noted in HPI and below Physical Exam Vital Signs: Last Vital Signs Pulse 62 10/16/24 09:00 BP 104/78 10/16/24 09:00 Pulse Ox 98 10/16/24 09:00 Oxygen Delivery Method Room Air 10/16/24 09:00 BMI result Body Mass Index 24.3 Const General: cooperative, healthy appearing, comfortable, no acute distress and well developed Nutritional Appearance: average body habitus Orientation/consciousness: patient oriented x3 Limitations: ambulation with cane HEENT Head: Yes normocephalic and Yes atraumatic Resp Effort & Inspection: normal respiratory effort and able to speak in complete sentences Auscultation: clear to auscultation bilaterally Cardio Rate: regular rate Rhythm: regular rhythm Neuro General: patient oriented x3 Extrem Other: Numerous fibromyalgia tender points Mild osteoarthritic changes (Inna's nodes) of his hands but no swelling Assessment & Plan Assessment & Plan (1) Migraine without aura: Code(s): G43.009 - Migraine without aura, not intractable, without status migrainosus Category: Medical Qualifiers: Status migrainosus presence: without status migrainosus Intractability: intractable Qualified Code(s): G43.019 - Migraine without aura, intractable, without status migrainosus (2) Cognitive dysfunction: Code(s): F09 - Unspecified mental disorder due to known physiological condition Category: Medical (3) Sleep difficulties: Code(s): G47.9 - Sleep disorder, unspecified Category: Medical (4) Positive RPR test: Comment: He has no signs of active syphilis He has no signs of neurosyphilis. 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 HIV is well controlled. 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 Continue Magnesium. For memory: Reviewed labs- mild anemia- pt to f/u w/ GI. + RPR, chronic- monitor RPR per ID- PCP checking. Neuro-psych eval reviewed. For migraine w/o aura: Continue Ubrogepant (Ubrelvy) 100mg tab, 1/2 - 1 tab (50-100mg) at onset of headache, may repeat in 2 hours. Max of 2 tabs (200mg) per 24 hours. May adjunct with OTC Naproxen 440mg q 12 hrs prn. Previous trials: Toradol inj- helpful. Migraine treatment contraindications- All triptans d/t symptomatic seizure d/o. For LLE: Pain and weakness worse after surgery and is referred back to PT. For Sleep disorder: HST and f/u in 3 months or sooner prn Coding Level of Care Code Est Pt Level 4 (80246) Diagnoses Intractable migraine without aura and without status migrainosus G43.019 Status migrainosus presence: without status migrainosus Intractability: intractable Cognitive dysfunction F09 Sleep difficulties G47.9 Positive RPR test A53.0 Seizure R56.9 Time Spent (min) 45 Comment worsening migraines
[2024-10-16 09:00] VITALS: BP 104/78; PULSE 62; O2SAT 98; BMI 24.3
== END 2024-10-16 09:37 | disposition home or self-care (01) ==
PROVIDERS: PCP Physician Assistant Medical; Visit Provider Physician Assistant Medical
DX: G43.019 Migraine without aura, intractable, without status migrainosus (principal); R41.89 Other symptoms and signs involving cognitive functions and awareness; G47.9 Sleep disorder, unspecified; A53.0 Latent syphilis, unspecified as early or late; R56.9 Unspecified convulsions
CPT/HCPCS: 99214

== ENCOUNTER → 2024-10-16 08:45 | Outpatient (BNVA) | payer MEDICAID, SELFPAY | PROVIDERS: PCP Physician Assistant Medical; Visit Provider Physician Assistant Medical | DX: R56.9 Unspecified convulsions (principal); G43.019 Migraine without aura, intractable, without status migrainosus; G47.9 Sleep disorder, unspecified; A53.0 Latent syphilis, unspecified as early or late; F09 Unspecified mental disorder due to known physiological condition | CPT/HCPCS: 99212 ==

== ENCOUNTER 2025-01-14 08:48 | Outpatient (AMB) | payer MEDICAID, SELFPAY ==
[2025-01-14 08:55] VITALS: BP 110/80; PULSE 62; O2SAT 98; BMI 25.8
--- NOTE | 2025-01-14 08:55 | MHC.OFFVIS ---
Vital Signs 01/14/25 08:55 Height 5 ft 2 in Weight 141 lb BMI 25.8 BP 110/80 Blood Pressure Location Lt brachial Position Sitting Pulse 62 Pulse Source Pulse Oximeter Pulse Oximetry (%) 98 Oxygen Delivery Method Room Air Intake Visit Reasons: 3 mo follow up Intake Note: Patient presents for follow up migraine Allergies No Known Allergies Allergy (Verified 01/14/25 08:59) HPI Comments Details: Pt presents today for Migraine follow up. States that he still has pain 5/10 since his appendectomy in the scar tissue since surgery. He continues to have pain in his neck and low back and goes to PT 2 x per week. States that he gets trigger point injections in his neck and trapezius muscles prn pain, l. side pain with injection so he discontinued. injections and on 150mg Lyrica PO daily. Episodes of epilepsy, well controlled by Heidi, continues to get lost in conversation and stops talking, and forgets mid-sentence. He does not drive anymore, because he gets lost. Vision blurriness is the prodrome, he just saw his eye doctor on Dec 24 post trabeculectomy for NACG, pressures improved and less blurriness. Headaches, temporal throbbing, with photo/phono phobia, and smells would, nausea no vomiting, +floaters, no light flashing, 2x per week, uses Ubrelvy is working well. Per GI he stopped tylenolol, and alcohol consumption. Diet is poor lost 20 lbs, eating small portions and no red meat or fried fatty foods, trying to eat really clean. He has insomnia, takes trazadone 30mg po for sleep with excessive day time sleepiness. Sees his psychologist regularly every 2 weeks for mood disorder. Initial history: This is a 42-year-old male with past medical history of HIV on HAART , fibromyalgia, chronic back pain, seizures who presents for evaluation of diffuse pain. The condition started since he was 15. He was evaluated by multiple doctors in [place] and received numerous medications. He was diagnosed with fibromyalgia. Could not tolerate gabapentin and Cymbalta. He was started on Lyrica around 2008 and this medication gave him significant relief. He has pain everywhere. Especially of his back, neck, shoulders, hands, feet. He feels like somebody is bowling him from his neck in his legs. Pain is worse with activity and also worse in the morning. Occasional swelling of his fingers. He was seen by pain management and received 2 injections in his spine which provided significant relief. [facility] History Mood disorder Fibromyalgia, primary HIV (human immunodeficiency virus infection) Chronic back pain Seizure Left leg weakness Surgical History History of appendectomy History of carpal tunnel release of both wrists Family History Father Drug abuse and dependence Unknown Cancer of bone Maternal Grandmother Diabetes Heart attack Maternal Grandfather Stroke Social History Household Members: Family Housing: House Alcohol intake: never Patient Tobacco Use Status: Never used Tobacco Substance Use Type: Marijuana service: No Current occupational status: unemployed 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 Review of Systems Const All systems reviewed & are unremarkable except as noted in HPI and below Physical Exam Vital Signs: Last Vital Signs Pulse 62 01/14/25 08:55 BP 110/80 01/14/25 08:55 Pulse Ox 98 01/14/25 08:55 Oxygen Delivery Method Room Air 01/14/25 08:55 BMI result Body Mass Index 25.8 Const General: cooperative, healthy appearing, comfortable, no acute distress and well developed Nutritional Appearance: average body habitus Orientation/consciousness: patient oriented x3 Limitations: ambulation with cane HEENT Head: Yes normocephalic and Yes atraumatic Face and sinus: Yes normal facial exam and Yes face symmetric Teeth and gingiva: other ([place] score of 3) Eyes Pupils: Equal, round and reactive pupils present Resp Effort & Inspection: normal respiratory effort and able to speak in complete sentences Auscultation: clear to auscultation bilaterally Cardio Rate: regular rate Rhythm: regular rhythm Neuro Other: Tremor of the tongue General: patient oriented x3 Cranial nerves: Yes Equal, round and reactive pupils present, Yes Normal facial strength present, Yes Ability to bilaterally rotate head present and Yes Ability to bilaterally elevate shoulders present Gait exam (Neuro): Shuffling gait present Motor exam (neuro): Motor abnormalites present (tongue movements tremors) Deep tendon reflexes (DTR's): Right triceps reflex intensity grade: 2+, Left triceps reflex intensity grade: 2+, Rt Biceps (C5, C6): 2+, Left biceps reflex intensity grade: 2+, Right brachioradialis reflex intensity grade: 2+, Left brachioradialis reflex intensity grade: 2+, Right patellar reflex intensity grade: 1+ and Left patellar reflex intensity grade: 1+ Extrem Other: Numerous fibromyalgia tender points Mild osteoarthritic changes (Inna's nodes) of his hands but no swelling Psych Attitude: cooperative Thought process: Normal thought process present Results Reviewed Results Reviewed: Neuro-cognitive test evaluation reviewed with Patient: Encouraged him to engage in social activities for cognitive decline, depression, and mood disorder. Assessment & Plan Assessment & Plan (1) Migraine without aura: Code(s): G43.009 - Migraine without aura, not intractable, without status migrainosus Category: Medical Qualifiers: Intractability: intractable Status migrainosus presence: without status migrainosus Qualified Code(s): G43.019 - Migraine without aura, intractable, without status migrainosus (2) Cognitive dysfunction: Code(s): F09 - Unspecified mental disorder due to known physiological condition Category: Medical (3) Sleep difficulties: Code(s): G47.9 - Sleep disorder, unspecified Category: Medical (4) Positive RPR test: Comment: He has no signs of active syphilis He has no signs of neurosyphilis. 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 HIV is well controlled. 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 For memory: Reviewed labs- mild anemia- pt to f/u w/ GI. + RPR, chronic- monitor RPR per ID- PCP checking. Neuro-psych eval reviewed with patient and encouraged him to engage in social activities. For migraine w/o aura: Continue Ubrogepant (Ubrelvy) 100mg tab, 1/2 - 1 tab (50-100mg) at onset of headache, may repeat in 2 hours. Max of 2 tabs (200mg) per 24 hours. May adjunct with OTC Naproxen 440mg q 12 hrs prn. Previous trials: Toradol inj- helpful. Migraine treatment contraindications- All triptans d/t symptomatic seizure d/o. For LLE: Cervicalgia and back pain: Pain and weakness worse after surgery and is referred back to PT. For Sleep disorder: HST and f/u in 3 months or sooner prn Orders: Orders RT home sleep study Today G47.19 - Other hypersomnia Medications: New baclofen Take one tablet 5mg po at night for neck pain. 5 mg PO BEDTIME 90 days 90 tabs 1RF M54.2 - Cervicalgia Refilled ubrogepant (Ubrelvy) take at onset of migraine, may repeat in 2hrs (may take w/ Aleve) 50 - 100 mg (0.5 - 1 x 100 mg) PO ONCE 30 days PRN 16 tabs 3RF migraine headache MDD 2 tabs Discontinued omeprazole Discontinued Reason: Doctor's Order 40 mg PO DAILY 30 caps 0RF sucralfate Discontinued Reason: Doctor's Order 1 g PO TID PRN 60 tabs 0RF abdominal pain Patient Instructions: Sleep maximize on sleep, sleep in a dark room, cool temperatures at 68 or below, no devices in bed. May read in bed. F/U with GI F/U with HST F/U if migraines are not improved with muscle relaxers and PT and Lyrica 150mg PO daily. Chronic migraine use migraine cap, keep in freezer and put on with head at the onset of migraine, may apply peppermint oil to temples and continue ubrelvy 50-100mg PO as needed. Coding Level of Care Code Est Pt Level 4 (66634) Complex EM visit Add On G2211 Diagnoses Intractable migraine without aura and without status migrainosus G43.019 Intractability: intractable Status migrainosus presence: without status migrainosus Cognitive dysfunction F09 Sleep difficulties G47.9 Positive RPR test A53.0 Seizure R56.9 Cervicalgia M54.2 Time Spent (min) 40
--- OUTSIDE RECORDS SUMMARY | 2025-01-14 09:39 | XMS_ITS | Clinical Summary ---
Author Organization [facility] Address [address] [place] [address] Care Team Providers Care Plant Operator/Shift Supervisor Name Role Phone oNri Bateman PA-C Primary Care Provider Source Comments PLEASE NOTE, if this patient is a minor, it may be UNLAWFUL to discuss sensitive information that is contained in these records (such as FAMILY PLANNING, MENTAL HEALTH or SUBSTANCE ABUSE) with the minor patient's parent or other person without the patient's specific authorization.[facility] Allergies No known active allergies Medications prazosin (MINIPRESS) 2 mg capsule TAKE 1 CAPSULE BY MOUTH EVERY NIGHT 02/06/20 22 Active mirtazapine (REMERON) 30 mg tablet TAKE 1 TABLET BY MOUTH AT BEDTIME FOR ANXIETY OR DEPRESSION 02/06/20 22 Active levETIRAcetam (KEPPRA) 1,000 mg tablet TOME KIM TABLETA CADA 12 HORAS WITH 250MG TABLET 01/25/20 23 Active levETIRAcetam (KEPPRA) 250 mg tablet TOME KIM TABLETA CADA 12 HORAS WITH 100MG TABLET 01/25/20 23 Active pregabalin (LYRICA) 150 mg capsule TOME KIM C PSULA LUIS F VECES AL D A 01/25/20 23 Active temazepam (RESTORIL) 30 mg capsule Take by mouth nightly at bedtime 02/25/20 23 Active ARIPiprazole (ABILIFY) 15 mg tablet Take 15 mg by mouth once daily 02/27/20 23 Active MISCELLANEOUS MEDICAL SUPPLY MISCIndications: Multiple joint pain,Fibromyalgi a,Other chronic back pain by miscellaneous route daily. Cane for daily use to prevent falls. 1 Each 03/23/20 23 Active magnesium oxide (MAG-OX) 400 mg (241.3 mg magnesium) tabletIndication s:Reflux gastritis TOME KIM TABLETA TODOS LOS D AL ACOSTARSE *HOLD FOR LOOSE STOOLS* 08/07/20 23 Active rosuvastatin (CRESTOR) 5 mg tablet TOME KIM TABLETA TODOS LOS OLVERA 90 Tablet 2 09/18/20 24 Active polyethylene glycol, PEG, 3350 (GAVILAX) 17 gram/dose powderIndication s:Constipation, unspecified constipation type Take 17 g by mouth once daily 510 g 09/18/20 24 Active cabotegravir-ril pivirine (CABENUVA) 600 mg/3 mL- 900 mg/3 mL spERIndications: HIV disease ([facility]) Inject 0.02 mL into the muscle 56 DAYS Inject 600mg dose and 900mg dose IM Q 2 months. 1 Each 6 09/24/20 24 Active acetaminophen (TYLENOL) 325 mg tabletIndication s:Perforated appendix TAKE 2 TABLETS BY MOUTH EVERY 6 HOURS NEEDED FOR PAIN. 30 Tablet 10/05/20 24 Active omeprazole (PRILOSEC) [address] capsuleIndicatio ns:Gastroesophag eal reflux disease without esophagitis Take 1 Capsule by mouth every morning before breakfast 90 Capsule 10/14/20 24 Active pantoprazole (PROTONIX) 40 mg EC tabletIndication s:Gastroesophage al reflux disease without esophagitis Take 1 Tablet by mouth every morning before breakfast 90 Tablet 11/13/19 25 Active Active Problems Problem Noted Date Diagnosed Date Food insecurity 11/13/2024 Lack of access to transportation 11/13/2024 Gastroesophageal reflux disease without esophagi tis 11/13/2024 Perforated appendix 11/13/2024 Financial difficulties 08/30/2024 S/P appendectomy 08/03/2024, complicated by colon injury, converted to open 08/13/2024 Overview (08/13/2024): Images from the original note were not included. Patient: RADHA MCKEON Age: 44 Years Sex: Male : 1980 Admit Date Admission Date: 08/03/2024 Discharge Date 08/11/2024 Discharge Diagnoses Acute sepsis, 08/03/2024 Appendicitis, 08/03/2024 Hospital Course Patient is a 44-year-old male with PMH HIV (nondetectable), seizure, HLD, anxiety who was admitted 08/03 with acute appendicitis. A CT of the abdomen pelvis was obtained which showed a dilated appendix with appendicoliths and surrounding inflammation as well as dilated small bowels consistent with ileus. Patient was admitted to surgery and underwent urgent laparoscopic converted to open appendectomy on 08/[address] Mcmullen. Unfortunately, the operation was complicated by trocar injury to the colon, hence the conversion to open. Intra-op the patient was also found to have perforated appendicitis but no other injury to the small or large bowel. The appendix was removed and colotomy was repaired primarily without further complication. He has return of bowel function. NGtube was removed 08/06 and he tolerated sips of clears. He was advanced to clears 08/07. 08/08, he had increased abdominal distention and endorsed increasing diffuse abdominal pain and hiccups. CT scan 08/08 revealed possible ileus vs partial SBO. He has since had bowel function, tolerating his diet without nausea/vomiting. Patient seen and evaluated on 08/11, day of discharge. He states that he is feeling well, and feels ready to go home. He is endorsing some gassiness with food, but denies nausea, vomiting, abdominal pain. He is tolerating a regular diet. He is endorsing flatus and bowel movements. Voiding spontaneously and ambulating without difficulty. He has completed his course of ceftriaxone and Flagyl. He will be discharged with plan to follow-up in clinic in 1 to 2 weeks, and have his patricio removed in approximately 6 days. He will be given pain medication. Discussed with Dr. Camarena Blue pager [phone] Objective/Physical Exam on Day of Discharge Vitals & Measurements T: 98.3 ??F HR: 65 (Peripheral) RR: 20 BP: 143/90 SpO2: 98% WT: 63.18 kg General: no acute distress, alert, awake HEENT: normocephalic, atraumatic Cardiac: RRR Respiratory: Normal work of breathing on room air Abdomen: soft, mildly distended, nontender, no rebound tenderness or guarding. Staple line intact, healing appropriately without erythema or drainage Extremities: no peripheral edema Neuro: alert and oriented x3 Skin: no rashes, warm and well perfused Future Appointments Please schedule follow-up with PCP and general surgery clinic. PCP Follow-Up/Heads-Up Patient was hospitalized for perforated acute appendicitis and colotomy which was repaired primarily. Hospital course was complicated by ileus which has resolved. Please continue to monitor for signs and symptoms of peritonitis and recurrent ileus. Patient Discharge Condition Stable Discharge Disposition Home Pancolitis ([facility]) 09/03/2023 Severe manic bipolar I disor salina with psychotic features ([facility]) 06/22/2022 Hair plucking in adult 06/22/2022 History of syphilis 01/17/2022 Overview (01/17/2022): [place]x in [place] in July 2021. One injection PCN G. Depression with anxiety 09/07/2021 Mixed hyperlipidemia 09/07/2021 HIV disease ([facility]) 10/06/2013 Overview (08/16/2021): PT reports diagnosis Bilateral carpal tunnel syndrome Chronic back pain Overview (09/10/2021): [facility] for chronic back pain who presented to the emergency department with worsening back pain. He received Toradol and hydromorphone with positive effect. Admitted for PT eval and pain management.No lower extremity weakness. No signs of cord compression.Physical therapy evaluated him . They felt he should be able to go home continue on outpatient physical therapy. He was continued on his home dose of Lyrica 100 mg 3 times a day and oxycodone 5 mg every 6 hours as needed . Blood test was normal including Covid test Advised to follow up with Bob Roberts 2 to 3 weeks Cervical and lumbar Epilepsy ([facility]) Overview (08/14/2021): PT reports 2-3 times a week Fibromyalgia PTSD (post-traumatic stress disorder) Encounters Date Type Department Care Team Description 12/09/2024 9:20 AM EST Office Visit [address] [phone] Milli Henderson, RN HIV disease ([facility]) (Primary Dx) 12/02/2024 Interim Notes [address] [phone] Bhavani Mckinley 11/19/2024 Interim Notes [address] [phone] Saul Ayah, [place] 11/15/2024 9:00 AM EST Office Visit [address] [phone] oRs Trujillo PA-C HIV disease ([facility]) (Primary Dx); Immunization due 11/15/2024 Travel 11/13/2024 9:00 AM EST Office Visit [address] [phone] Nori Bateman PA-C Gastroesophageal reflux disease without esophagitis (Primary Dx); Right lower quadrant abdominal pain 11/13/2024 Travel from Last 3 Months Immunizations Name Administration Dates Next Due Flu, Preservative Free 08/25/2023,08/01/2022,10/2021 Influenza (FLUBLOK),recombinant,injectable,preservati ve Free 11/15/2024 Influenza, Whole 07/16/2009 MENINGOCOCCAL MCV4P (MENACTRA) 03/24/2022,2021 Moderna COVID-19 Vaccine, re d cap blue label, 12+ Primary Series 07/08/2021,03/03/2021,02/03/2021 PNEUMOCOCCAL CONJUGATE PCV 13 01/24/2022 PNEUMOCOCCAL CONJUGATE PCV 20 (Prevnar) 04/19/20 24 Pfizer COVID-19 (Comirnaty), Mrna, Lnp-s, Pf, [place]-sucrose, 30 Mcg/0.3 Ml, 12yr+ 08/25/2023 Pfizer-BioNTMom Trusted COVID-19 Vac cine Bivalent, (FERNANDEZ PFIZER-BIONTECH COVID-19 VACCINE BIVALENT, (FERNANDEZ CAP 08/01/2022 Smallpox Mpox (JYNNEOS) Vaccine 08/02/2022,07/05 TDAP 11/26/2021 ZOSTER VACCINE, RECOMBINANT (SHINGRIX) 3,10/05/2022 Family History Medical History Relation Name Comments Alcohol/Drug Abuse Father Heart attack Maternal Grandfather Stroke Maternal Grandfather Diabetes Maternal Grandmother Bone cancer Maternal Uncle Colon Cancer Maternal Uncle Relation Name Status Comments Father Maternal Grandfather Maternal Grandmother Maternal Uncle Social History Tobacco Use Types Packs/Day Years Used Date Smoking Tobacco: Never Smokeless Tobacco: Never Tobacco Cessation:Counseling Given: Yes Alcohol Use Standard Drinks/Week Comments Not Currently 0 (1 standard drink = 0.6 oz pur e alcohol) Social Connections Answer Date Recorded Connectedness 2 11/13/2024 Financial Resource Strain Answer Date R ecorded Financial Resource Strain 1 2024 Stress Answer Date Recorded Stress 2 11/13/2024 Physical Activity Answer Date Recorded Physical Activity 0 08/14/2021 Food Insecurity Answer Date Recorded Food 2 11/13/2024 Transportation Needs Answer Date Record ed Transportation 2 11/13/2024 Housing Stability Answer Date Recorded Housing 1 11/13/2024 Safety and Environment Answer Date Hiram rded Safety 0 05/17/2022 Utilities Answer Date Recorded Utilities 1 11/13/2024 Employment Answer Date Recorded Stress 0 01/24/2022 Sex and Gender Information Value Date Recorded Sex Assigned at Male 08/14/2021 11:20 AM PDT Legal Sex Male 7:31 AM PDT Gender Identity Male 08/14/2021 11:20 AM PDT Sexual Orientation Brito 08/14/2021 11 :20 AM PDT Last Filed Vital Signs Vital Sign Reading Time Taken Comments Blood Pressure 100/58 11/15/2024 9:12 AM EST Pulse 69 11/15/2024 9:12 AM EST Temperature 36.2 ??C (97.2 ??F) 11/15/2024 9:12 AM ES T Respiratory Rate 12 11/15/2024 9:12 AM EST Oxygen Saturation 97% 11/15/2024 9:12 AM EST Inhaled Oxygen Concentration - - Weight 62.6 kg (138 lb) 11/15/2024 9:12 AM EST Height 167 cm (5' 5.75 ) 11/15/2024 9:12 AM EST Body Mass Index 22.44 11/15/2024 9:12 AM EST Plan of Treatment Upcoming Encounters Date Type Department Care Team (Late st Contact Info) Description 02/03/2025 9:20 AM EDT Office Visit [address] [phone] Milli Henderson, RN [address] [place] [address] 02/12/2025 1:20 PM EDT Office Visit [address] [phone] Nori Bateman PA- [address] [place] [address] 02/21/2025 11:40 AM EDT Office Visit [address] [phone] Nori Bateman IDAlexis [address] [place] [address] 03/28/2025 9:20 AM EDT Office Visit [address] [phone] Milli Henderson RN [address] [place] [address] 05/26/2025 9:20 AM EDT Office Visit [address] [phone] Milli Henderson, RN [address] [place] [address] 07/21/2025 9:20 AM EDT Office Visit [address] [phone] Milli Henderson, RN [address] [place] [address] 09/15/2025 9:20 AM EST Office Visit [address] [phone] Milli Henderson RN [address] [place] [address] Health Maintenance Due Date Last Done Comments CT Colonography 2024 Colonoscopy 2024 Colorectal Cancer Screening 2024 FIT/gFOBT 2024 Fecal DNA 2024 Flexible Sigmoidoscopy 2024 [id number] ( season) 2024 08/25/2023, 08/01/2022, 07/08/2021, Additional history exists Depression Monitoring 11/30/2024 08/30/2024 , 08/30/2023, 03/23/2023, Additional history exists Syphilis Screening 05/16/2025 05/16/2024, 0 05/16/2024, 02/15/2024, Additional history exists Annual Preventive Care Visit 08/30/2025, 08/30/2023, 03/01/2022 Lipid Screening 08/30/2025 08/30/2024, 10/07, 07/05/2022, Additional history exists Diabetes Screening 10/14/2025 10/14/2024, 1 , 08/30/2024, Additional history exists Tobacco Screening 11/13/2025 11/13/2024 Hypertension Screening (#1) 11/15/2025 Imm-Meningococcal (3 - Risk 2-dose series) 03/24/2027 03/24/2022, 01/24/2022 Imm-DTaP/Tdap/Td (2 - Td or Tdap) 11/26/2031 022 Hepatitis B Screening Completed 08/17/2021 Imm-Mpox (formerly Monkeypox) Completed 08/02/2022, 07/05/2022 Imm-Zoster, Recombinant Completed 09/12/2023, 10/05 Hepatitis C Screening Completed 04/11/2024 , 04/10/2023, 01/10/2022 Imm-Pneumococcal Completed 04/19/2024, 01/24/2022 Alcohol and Drug Screen Completed 11/13/19, 08/30/2024, 03/23/2023, Additional history exists Imm-Influenza Completed 11/15/2024, 08/07, 08/01/2022, Additional history exists Imm-Hepatitis A Discontinued Imm-Hepatitis B Discontinued Imm-MMR Discontinued Procedures Procedure Name Priority Date/Time Associated Diagnosis Comments H PYLORI UREA BREATH TEST Routine 12/09/2024 9:03 AM EST Gastroesophageal reflux disease without esophagitis US ABDOMINAL COMPLETE Routine 12/02/2024 3:00 AM EST Right lower quadrant abdominal pain REFERRAL SCANNED DOCUMENT 11/26/2024 3:00 AM EST OTHER ORDERS SCANNED DOCUMENT 11/19/2024 3:00 AM EST REFERRAL TO UROLOGY Routine 11/05/2024 3 :00 AM EST Difficulty voiding REFERRAL SCANNED DOCUMENT 10/16/2024 3:00 AM EST COMPREHENSIVE METABOLIC PANEL Routine 10/14/2024 9:37 AM EST HIV disease (HCC-CMS) LIPID PANEL Routine 08/30/2024 2:40 PM EDT Routine general medical examination at a health care facility RPR (MONITOR) W/REFL TITER Routine 05/16/2024 9:31 AM EDT Possible exposure to STD HEPATITIS C AB W/RFLX HCV RNA, QT, RT PCR Routine 04/11/2024 9:47 AM EDT HIV disease (HCC-CMS) HEPATITIS B SURF ANTIBODY HBSAB Routine 08/17/2021 12:15 PM EDT Routine adult health maintenance from Last 3 Months or Most Recently Relevant to Health Maintenance Results * HPYLORI BREATH ANAL UREASE ACT NON-RADACT ISTOPE (12/09/2024 9:03 AM EST) Pathologist [facility] RESULT NOT DETECTED NOT DETECTED [facility] Comment: Antimicrobials, proton pump inhibitors, and bismuth preparations are known to suppress H. pylori, and ingestion of these prior to H. pylori diagnostic testing may lead to false negative results. If clinically indicated, the test may be repeated on a new specimen obtained two weeks after discontinuing treatment. However, a positive result is still clinically valid. BREATH Topography unknown / Unknown 12/09/2024 9:03 AM EST 12/09/2024 9:05 AM EST Nori Bateman PA-C LAB - NO BLOOD DRAW Final Re sult [email or web address] [address] [address], [place] [email or web address] [address] [address] * US ABDOMINAL COMPLETE (12/02/2024 3:00 AM EST) 12/02/2024 3:00 AM EST Nori Bateman PA-C IMG ULTRASOUND Final Result * REFERRAL SCANNED DOCUMENT (11/26/2024 3:00 AM EST) Only the most recent of2 resultswithin the time period is included. 11/26/2024 3:00 AM EST Nori Bateman PA-C SCAN REFERRAL Final Result * OTHER ORDERS SCANNED DOCUMENT (11/19/2024 3:00 AM EST) 11/19/2024 3:00 AM EST Ani Rose GUIDANCE SECRETARY SCAN OTHER ORDERS Final Result * REFERRAL TO UROLOGY (11/05/2024 3:00 AM EST) 11/05/2024 3:00 AM EST Nori Bateman PA-C REFERRAL Edited Resul t - Final * (ABNORMAL) COMPREHENSIVE METABOLIC PANEL (10/14/2024 9:37 AM EST) GLUCOSE 104(H) 65 - 99 mg/dL [email or web address] Comment: ?Fasting reference interval For someone without known diabetes, a glucose value between 100 and 125 mg/dL is consistent with prediabetes and should be confirmed with a follow-up test. UREA NITROGEN (BUN) 15 7 - 25 mg/dL [email or web address] CREATININE (blood) 1.11 0.60 - 1.29 mg/dL [email or web address] EGFR 83 > OR = 60 mL/min/1. 73m2 [email or web address] BUN/CREATININE RATIO SEE NOTE: [email or web address] Comment: ?? Not Reported: BUN and Creatinine are within ?? reference range. ? SODIUM 139 135 - 146 mmol/L [email or web address] POTASSIUM 4.2 3.5 - 5.3 mmol/L [email or web address] CHLORIDE 102 98 - 110 mmol/L [email or web address] CARBON DIOXIDE 26 20 - 32 mmol/L [email or web address] CALCIUM 9.8 8.6 - 10.3 mg/dL [email or web address] PROTEIN, TOTAL 7.4 6.1 - 8.1 g/dL [email or web address] ALBUMIN 4.7 3.6 - 5.1 g/dL [email or web address] GLOBULIN 2.7 1.9 - 3.7 g/dL (calc) [email or web address] ALBUMIN/GLOBULI N RATIO 1.7 1.0 - 2.5 (calc) [email or web address] BILIRUBIN, TOTAL 0.3 0.2 - 1.2 mg/dL [email or web address] ALKALINE PHOSPHATASE 74 36 - 130 U/L [email or web address] AST 18 10 - 40 U/L [email or web address] ALT 21 9 - 46 U/L [email or web address] Blood Blood / Unknown 10/14/2024 9 :37 AM EST 10/14/2024 9:40 AM EST Narrative [email or web address] - 10/16/2024 6:44 PM EST FASTING FASTING:YES us Ros Trujillo PA-C LAB - BLOOD DRAW Edited Resu lt - Final [email or web address] [address] [address], [email or web address] [address] [address] * (ABNORMAL) LIPID PANEL (08/30/2024 2:40 PM EDT) CHOLESTEROL, TOTAL 203(H) <200 mg/dL [email or web address] HDL CHOLESTEROL 37(L) > OR = 40 mg/dL [email or web address] TRIGLYCERIDES 128 <150 mg/dL [email or web address] LDL-CHOLESTEROL 141(H) 99 mg/dL (calc) [email or web address] Comment: Reference range: <100 Desirable range <100 mg/dL for primary prevention; ?? <70 mg/dL for patients with CHD or diabetic patients with > or = 2 CHD risk factors. LDL-C is now calculated using the Angel calculation, which is a validated novel method providing better accuracy than the Friedewald equation in the estimation of LDL-C. Kyle SS et al. LAURA. 2013;310(19): 9532-6096 (http://education.Concentra/faq/MPE500) CHOL/HDLC RATIO 5.5(H) <5.0 (calc) [email or web address] NON-HDL CHOLESTEROL 166(H) <130 mg/dL (calc) [email or web address] Comment: For patients with diabetes plus 1 major ASCVD risk factor, treating to a non-HDL-C goal of <100 mg/dL (LDL-C of <70 mg/dL) is considered a therapeutic option. Blood Blood / Unknown 08/30/2024 2 :40 PM EDT 08/30/2024 2:40 PM EDT Narrative [facility] - 08/31/2024 5:40 AM EDT FASTING:NO Karlo Cleveland MD LAB - BLOOD DRAW Final Result [facility] [address] [place] [id number], [email or web address] [address] [place] [phone] * (ABNORMAL) RPR (MONITOR) W/REFL TITER (05/16/2024 9:31 AM EDT) RPR (MONITOR) W/REFL TITER REACTIVE( A) NON-REACT EARL [email or web address] Comment: The RPR is a ylq-mfqhjfcsnx-gpbnizpo test; therefore, a treponemal-specific confirmatory test should be performed unless prior syphilis infection has been documented for this patient. Blood Blood / Unknown 05/16/2024 9 :31 AM EDT 05/16/2024 9:32 AM EDT Narrative [facility] - 05/17/2024 9:32 PM EDT SPECIMEN COLLECTED AT PROVIDER OFFICE. Ros Trujillo PA-C LAB - BLOOD DRAW Edited Resu lt - Final Performing Organization Address [facility] Co de Phone Number [email or web address] [address] [address], [employer] [address] [phone] * HEPATITIS C AB W/RFLX HCV RNA, QT, RT PCR (04/11/2024 9:47 AM EDT) HEPATITIS C ANTIBODY NON-REACT EARL NON-REACT EARL [facility] Comment: HCV antibody was non-reactive. There is no laboratory evidence of HCV infection. In most cases, no further action is required. However, if recent HCV exposure is suspected, a test for HCV RNA (test code 06689) is suggested. For additional information please refer to http://education.Ekahau/faq/GRH58j3 (This link is being provided for informational/ educational purposes only.) Blood Blood / Unknown 04/11/2024 9 :47 AM EDT 04/11/2024 9:48 AM EDT [facility] - 04/15/2024 6:32 PM EDT FASTING:YES us Ros Trujillo PA-C LAB - BLOOD DRAW Edited Resu lt - Final Performing Organization Address City/[facility]/ZIP Co de Phone Number [email or web address] [address] [address], [employer] [address] [address] * (ABNORMAL) HEPATITIS B SURFACE ANTIBODY (HBSAB) QUAL (08/17/2021 12:15 PM EDT) HEPATITIS B SURFACE ANTIBODY QL REACTIVE( A) NON-REACT EARL [facility] Blood Blood / Unknown 08/17/2021 1 2:15 PM EDT 08/17/2021 12:16 PM EDT Narrative [facility] - 08/20/2021 6:17 PM EDT PATIENT UNABLE TO VOID; ADVISED TO RETURN FOR COLLECTION. us Alberto Caballero MD LAB - BLOOD DRAW George tracy Result - Final [facility] [address] [address], [facility] [address] [address] from Last 3 Months or Most Recently Relevant to Health Maintenance Insurance [facility] [employer] Care Teams Plant Operator/Shift Supervisor Relationship Specialty Start Date End Date Nori Bateman PA-C [address] [place] [address] PCP - General Internal Medicine 01/26/23
--- OUTSIDE RECORDS SUMMARY | 2025-01-14 09:39 | XMS_ITS | Encounter Summary ---
Author Organization [facility] Address [address] [place] [address] Care Team Providers Care Supply Chain Business Analyst Name Role Phone Child, Krunal TERAN Primary Care Provider [phone] Encounter Details Date Type Department Care Team (Late st Contact Info) Description 11/14/2024 Lab Requisition [facility] - Main Lab [address] [facility] [place] [phone] Tom Hughes PA [address] [place] [phone] Benign essential microscopic hematuria Social History Tobacco Use Types Packs/Day Years Used Date Smoking Tobacco: Never Assessed Sex and Gender Information Value Date Recorded Sex Assigned at Not on file Legal Sex Male 3:31 PM EST Gender Identity Not on file Sexual Orientation Not on file documented as of this encounter Plan of Treatment Not on file documented as of this encounter Procedures Procedure Name Priority Date/Time Associated Diagnosis Comments AP OUTSIDE CONSULT Routine 11/05/2024 12 :00 AM EST Benign essential microscopic hematuria documented in this encounter Results * Anatomic pathology outside consult (11/05/2024 12:00 AM EST) Final Diagnosis A. Urine, Voided, ([id number]): Negative for high grade urothelial carcinoma. Results of [employer] fluorescence in situ hybridization (FISH) testing: CEP3: Normal CEP7: Normal CEP17: Normal LSI 9p21: Normal Interpretation: Normal profile Controls stained appropriately. Note: The results are intended as a screening device and should be interpreted in association with other clinical and pathological findings. 11/26/2024 8:[address] [facility] Clinical Information Other microscopic hematuria R31.29 Benign essential microscopic hematuria R31.1 Cytology/Urine FISH (now) 11/26/2024 8:48 AM [facility] Gross Description A. Urine, Voided, ([id number]): Received 1 TP (CYTO) 1 TP (FISH) 11/26/2024 8:48 AM [facility] Disclaimer Unless otherwise specified, all tissue is 10% NB formalin fixed and paraffin embedded. Technical pathology services provided by [facility] at [address] [place] [address] [address], [place] [address] (CLIA #[id number]/Blank Trevino MD, Data Operations Leader) 11/26/2024 8:48 AM [facility] Tissue Urine specimen from urethra / Unknown 11/05/2024 11/14/2024 3:55 PM EST us Tom TERAN LAB PATHOLOGY ORDERABLES Final Result [facility] [address] [place] [address], documented in this encounter Visit Diagnoses Diagnosis Benign essential microscopic hematuria documented in this encounter Care Teams Supply Chain Business Analyst Relationship Specialty Start Date End Date Child, JEFFRY Hector [address] [place] [address] PCP - General 02/20/24 documented as of this encounter
--- OUTSIDE RECORDS SUMMARY | 2025-01-14 09:39 | XMS_ITS | Clinical Summary ---
Author Organization [address] [place] [address] [place] [phone] Phone Care Team Providers Care Associate Professor Of Geology Name Role Phone Child, Krunal TERAN Primary Care Provider [phone] Allergies No known active allergies Medications ARIPiprazole (ABILIFY) 20 mg tablet Take 1 Tablet by mouth daily. Active docusate sodium (COLACE) 100 mg capsule Take 1 Capsule by mouth 2 times daily. 4 Active levETIRAcetam (KEPPRA) 1,000 mg tablet Take 1.5 Tablets by mouth daily. Active magnesium aspart,citrate, oxide (Triple Magnesium Complex) 400 mg magnesium capsule Take by mouth daily. Active mirtazapine (REMERON) 30 mg tablet Take 1 Tablet by mouth at bedtime. Active nortriptyline (PAMELOR) 50 mg capsule Take 1 Capsule by mouth at bedtime. Active pregabalin (LYRICA) 150 mg capsule Take 1 Capsule by mouth daily. Active rosuvastatin (CRESTOR) 5 mg tablet Take 1 Tablet by mouth daily. Active ubrogepant (UBRELVY) 100 mg tablet Take by mouth. Activ e polyethylene glycol (MIRALAX) 17 gram packet Take 17 g by mouth daily. Active bisacodyL (DULCOLAX) 5 mg EC tablet Take by mouth. Take 2 tabs by mouth right before beginning bowel prep. Follow instructions given by office for timing. 4 Active Encounters Date Type Department Care Team Description 11/14/[address] [facility] - Main Lab [address] [facility] [place] [address] Tom Hughes, JEFFRY Benign essential microscopic hematuria from Last 3 Months Medical History Medical History Date Comments Straining with stools DX:Straini ng with stools Abdominal discomfort DX:Abdomina l discomfort Human immunodeficiency virus (HIV) disease (CMS/HCC) DX:Human immunodeficiency vi damon (HIV) disease (HCC) Social History Tobacco Use Types Packs/Day Years Used Date Smoking Tobacco: Never Assessed Sex and Gender Information Value Date Recorded Sex Assigned at Not on file Legal Sex Male 3:31 PM EST Gender Identity Not on file Sexual Orientation Not on file Obstetrics History Last Filed Vital Signs Vital Sign Reading Time Taken Comments Blood Pressure 116/80 05/02/2024 8:47 AM EDT Sitting L Arm Pulse 86 05/02/2024 8:47 AM EDT Temperature - - Respiratory Rate - - Oxygen Saturation - - Inhaled Oxygen Concentration - - Weight 64.1 kg (141 lb 6.4 oz) 05/02/2024 8:47 AM EDT Height 165.1 cm (5' 5 ) 05/02/2024 8:47 AM EDT Body Mass Index 23.53 05/02/2024 8:47 AM EDT Plan of Treatment Health Maintenance Due Date Last Done Comments MMR Vaccines (1 of 2 - Risk 2-dose series) 1997 Hepatitis A Vaccines (1 of 2 - Risk 2-dose series) 1998 Hepatitis B Vaccines (1 of 3 - 19+ 3-dose series) 1998 Colorectal Cancer Screening: Colonoscopy 10/05/2022 Social Influencers of Health Screening 10/05/2022 COVID-19 Vaccine ( season) 2024 08/25/2023, 08/01/2022, 07/08/2021, Additional history exists Depression Screening 08/30/2025 08/30/2024 Meningococcal ACWY Vaccine (3 - Risk 2-dose series) 03/24/2027 03/24/2022, 01/24/2022 Cholesterol Screening (Lipid Panel) 08/30/2029 08/30/2024, 08/30/2024, 10/25/2022, Additional history exists DTaP,Tdap,and Td Vaccines (2 - Td or Tdap) 11/26/2031 11/26/2021 Hepatitis C Screening Completed 04/11/2024 Pneumococcal Vaccine: Pediatrics (0 to 5 Years) and At-Risk Patients (6 to 64 Years) Completed 04/19/2024, 01/24/2022 Influenza Vaccine Completed 11/15/2024, , 08/01/2022, Additional history exists HIB Vaccines Aged Out No longer eligi ble based on patient's age to complete this topic HPV Vaccines Aged Out No longer eligi ble based on patient's age to complete this topic IPV Vaccines Aged Out No longer eligi ble based on patient's age to complete this topic Meningococcal B Vacine Aged Out No lo nger eligible based on patient's age to complete this topic RSV Immunization Patients Under 20 months Aged Out No longer eligible based on patient's age to complete this topic Varicella Vaccines Aged Out No longer eligible based on patient's age to complete this topic Procedures Procedure Name Priority Date/Time Associated Diagnosis Comments AP OUTSIDE CONSULT Routine 11/05/2024 12 :00 AM EST Benign essential microscopic hematuria from Last 3 Months Results * Anatomic pathology outside consult (11/05/2024 12:00 AM EST) Final Diagnosis A. Urine, Voided, ([id number]): Negative for high grade urothelial carcinoma. Results [...] R31.1 Cytology/Urine FISH (now) 11/26/2024 8:48 AM [facility] Gross Description A. Urine, Voided, ([id number]): Received 1 TP (CYTO) 1 TP (FISH) 11/26/2024 8:48 AM [facility] Disclaimer Unless otherwise specified, all tissue is 10% NB formalin fixed and paraffin embedded. Technical pathology services provided by [facility] at [address], [place] [address] (CLIA #[id number]/Blank Trevino MD, Electric Power Machine Operator) 11/26/2024 8:48 AM EST [facility] Tissue Urine specimen from urethra / Unknown 11/05/2024 11/14/2024 3:55 PM EST us Tom TERAN LAB PATHOLOGY ORDERABLES Final Result [facility] [address] [place] [address], from Last 3 [id number] MEDICA[place] - [place] Care Teams Associate Professor Of Geology Relationship Specialty Start Date End Date Child, JEFFRY Hector [address] [place] [address] PCP - General 02/20/24
== END 2025-01-14 10:05 | disposition home or self-care (01) ==
LOC: HO.HSMS 08:48
PROVIDERS: PCP Physician Assistant Medical; Visit Provider Physician Assistant Medical
DX: G43.019 Migraine without aura, intractable, without status migrainosus (principal); R41.89 Other symptoms and signs involving cognitive functions and awareness; G47.9 Sleep disorder, unspecified; A53.0 Latent syphilis, unspecified as early or late; R56.9 Unspecified convulsions; M54.2 Cervicalgia
CPT/HCPCS: 99214

== ENCOUNTER → 2025-01-14 08:48 | Outpatient (BNVA) | payer MEDICAID, SELFPAY | PROVIDERS: PCP Physician Assistant Medical; Visit Provider Physician Assistant Medical | DX: G43.019 Migraine without aura, intractable, without status migrainosus (principal); G47.9 Sleep disorder, unspecified; A53.0 Latent syphilis, unspecified as early or late; R56.9 Unspecified convulsions; M54.2 Cervicalgia; F09 Unspecified mental disorder due to known physiological condition | CPT/HCPCS: 99212 ==

== ENCOUNTER 2025-03-11 07:31 | Outpatient (AMB) | payer MEDICARE, MEDICAID, SELFPAY ==
--- NOTE | 2025-03-11 07:33 | A.OFFVIS_ITS ---
Vital Signs 03/11/25 07:50 Height 5 ft 2 in Weight 136 lb 10.986 oz BMI 25.0 BP 112/70 Blood Pressure Location Lt brachial Position Sitting Pulse 60 Pulse Source Pulse Oximeter Pulse Oximetry (%) 96 Oxygen Delivery Method Room Air Intake Visit Reasons: FMS Intake Note: Patient presents for FMS follow up. 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 Helper Services: [employer] Present [employer] Name: Ravi [id number] Information Interpreted: non-clinical & clinical Allergies No Known Allergies Allergy (Verified 03/11/25 07:39) Medication List - Last Reconciled 03/11/25 by Kyleigh Burns MD baclofen 5 mg PO BEDTIME 90 days cabotegravir-rilpivirine 600 mg/3 mL- 900 mg/3 mL ER (Cabenuva) 6 mL IM [id number] cariprazine (Vraylar) 3 mg PO DAILY cariprazine (Vraylar) 3 mg PO QAM lamotrigine 50 mg PO DAILY levetiracetam 500 mg PO Q12H 30 days magnesium oxide 400 mg PO BEDTIME 90 days memantine mg PO mirabegron ER (Myrbetriq) 50 mg PO DAILY pantoprazole 40 mg PO DAILY pregabalin 150 mg PO DAILY rosuvastatin 5 mg PO DAILY temazepam 30 mg PO BEDTIME PRN ubrogepant (Ubrelvy) 50 - 100 mg (0.5 - 1 x 100 mg) PO ONCE PRN 30 days MDD 2 tabs HPI Comments Details: Patient is a 44 year old male with HIV on ARVs, seizure disorder, GERD, HLD, Migraine headaches and fibromyalgia here today for follow up Interval History: Patient last seen 09/09/[address] Bloom. At that time he was following up for his fibromyalgia. Complained of neck and low back pain that had worsened after his appendicitis surgery. He was assessed as increased pain likely secondary to decreased mobility after his appendicitis surgery. Reassurance was given and no changes were made to his medication Today patient states he feels a little bett but still has pain particularly in his neck, low back and left knee Also complaining of right medial wrist pain Rheumatologic History: Fibromyalgia Initial history by Dr. Bloom: This is a 42-year-old male with past medical history of HIV on HAART , fibromyalgia, chronic back pain, seizures who presents for evaluation of diffuse pain. The condition started since he was 15. He was evaluated by multiple doctors in [place] and received numerous medications. He was diagnosed with fibromyalgia. Could not tolerate gabapentin and Cymbalta. He was started on Lyrica around 2008 and this medication gave him significant relief. He has pain everywhere. Especially of his back, neck, shoulders, hands, feet. He feels like somebody is bowling him from his neck in his legs. Pain is worse with activity and also worse in the morning. Occasional swelling of his fingers. He was seen by pain management and received 2 injections in his spine which provided significant relief. Current Rheumatology Medication(s): Pregabalin 150mg daily [facility] Medical History Mood disorder Fibromyalgia, primary HIV (human immunodeficiency virus infection) Chronic back pain Seizure Left leg weakness Surgical History History of appendectomy History of carpal tunnel release of both wrists Family History Father Drug abuse and dependence Unknown Cancer of bone Maternal Grandmother Diabetes Heart attack Maternal Grandfather Stroke Social History Household Members: Family Housing: House Alcohol intake: never Patient Tobacco Use Status: Never used Tobacco Substance Use Type: Marijuana service: No Current occupational status: unemployed 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 Review of Systems Const Details: Review of Systems Constitutional: Denies fever, chills, weight loss ENT: Denies vision changes, eye pain or eye redness, dental caries, dry mouth GI: Denies nausea, vomiting, diarrhea, abdominal pain, change in BM Pulm: Denies SOB, REVELES, hemoptysis, wheezing Cards: Denies chest pain, palpitations Skin: Denies Raynaud's, rash, nail changes, photosensitivity, HANDWRITING EXPERT: Denies headaches, weakness, paresthesias, recurrent falls MSK: as per HPI All other systems reviewed and are unremarkable except noted above Physical Exam Vital signs reviewed Physical Examination CONSTITUITIONAL Patient alert and cooperative. Well appearing and in no apparent painful distress HEENT Conjunctiva and sclera clear. ?Pupils equal round and reactive to light. ?No lymphadenopathy. ? CHEST/RESPIRATORY SYSTEM Normal respiratory effort and able to speak in complete sentences. ?Clear to auscultation bilaterally. ?No crackles, rales, rhonchi, wheezes heard. CARDIAC SYSTEM Regular rate and rhythm. ?S1 and S2 heard no murmurs. ?Radial pulses intact bilaterally MSK Hands: ?Able to make a fist. No synovitis noted to the MCPs, PIPs or DIPs. ?No tenderness to palpation of these joints. No deformities noted. ? Wrists: ?Full range of motion at the wrists without pain. ?No tenderness to palpation or synovitis noted to the wrists. TTP of the ECU tendon in the 6th compartment Elbows: Full range of motion without pain. No tenderness, weakness, swelling, increased warmth or erythema. Shoulders: Full range of active range of motion without pain. No tenderness, weakness, swelling, increased warmth or erythema. Knees: ?Full range of motion. ?No tenderness, swelling, increased warmth or erythema.?No effusion or crepitations Ankles: Full range of motion. ?No tenderness, swelling, increased warmth or erythema.? Feet: ?Negative squeeze test. ?No tenderness to palpation or swelling of the MTPs. Tender points:?Tenderness to palpation of the bilateral trapezius, s upraspinatus, greater trochanters, anterior costochondral junctions, bilateral gluteal areas, bilateral suboccipital muscle insertions SKIN Skin intact without rashes. Results Reviewed Results Reviewed: Laboratory Tests 08/02/24 04:47 WBC 17.3 H RBC 4.12 L Hgb 13.7 L Hct 39.9 L Plt Count 257 D Sodium 139 Potassium 4.4 Chloride 104 Carbon Dioxide 27 BUN 20 H Creatinine 1.22 AST 18 ALT 15 Alkaline Phosphatase 73 C-Reactive Protein < 0.10 Immunology labs 08/09/22 11:20 Rheumatoid Factor < 15.0 Cycl Citrul Peptide IgG <16 CESARIO Screen NEGATIVE HLA-B27 Negative Assessment & Plan Assessment & Plan (1) Fibromyalgia, primary: Code(s): M79.7 - Fibromyalgia Category: Medical Plan: #Fibromyalgia Patient is a 44-year-old male with fibromyalgia here today for follow up. Continues to have diffuse pain. Recommended continued light exercise and stretches. Increase pregabalin Plan - Pregabalin 150mg bid - RTC 6 months (2) Extensor carpi ulnaris tendinitis: Code(s): M77.8 - Other enthesopathies, not elsewhere classified Plan: #ECU Tendonitis Patient with extensor carpi ulnaris tendonitis. Recommended topical diclofenac and splinting Plan - Splint wrist - Topical diclofenac 1% 4 times a day Plan I spent 20 minutes reviewing the record and labs, taking a history, examining the patient, discussing the treatment plan, ordering diagnostic work up and documenting in the medical record Medications: New diclofenac sodium 1% (Arthritis Pain (diclofenac)) apply to right wrist 4 times a day 4 grams topical QID 100 grams 5RF M77.8 - Other enthesopathies, not elsewhere classified Changed From pregabalin 150 mg PO DAILY 30 caps 5RF M79.7 - Fibromyalgia To pregabalin 150 mg PO BID 60 caps 5RF M79.7 - Fibromyalgia Coding Level of Care Code Est Pt Level 3 (03644) Diagnoses Fibromyalgia, primary M79.7 Extensor carpi ulnaris tendinitis M77.8
--- OUTSIDE RECORDS SUMMARY | 2025-03-11 07:33 | XMS_ITS | Encounter Summary ---
Author Organization [facility] Address [address] [place] [address] Care Team Providers Care Construction Recruiter Name Role Phone Nori Batemna PA-C Primary Care Provider Encounter Details Date Type Department Care Team ([facility] st Contact Info) Description 02/19/2025 Results Follow-Up [facility] [address] [place] [phone] Nori Bateman PA-C [address] [place] [address] Social History Tobacco Use Types Packs/Day Years Used Date Smoking Tobacco: Never Smokeless Tobacco: Never Alcohol Use Standard Drinks/Week Comments Not Currently [...] Orientation Brito 08/14/2021 11 :20 AM PDT documented as of this encounter Miscellaneous Notes * Result Encounter Note - Nori Bateman PA-C - 03/03/2025 6:09 PM EDT Jus Keenan, I called to discuss US of the abdomen, but you did not answer. US showed: -Diffuse hepatic steatosis. (Fatty liver) -Gallbladder polyp measuring 0.4 x 0.1 x 0.2 cm. Please follow up with GI on 03/25/2025 and show the results of the US for further recommendations. Nori * Result Encounter Note - Nori Bateman PA-C - 02/19/2025 12:35 AM EDT Results WNL. Nori documented in this encounter Plan of Treatment Upcoming Encounters Date Type Department Care Team (Late st Contact Info) Description 03/28/2025 9:20 AM EDT Office Visit [address] [phone] Milli Henderson RN [address] [place] [address] 04/16/2025 11:40 AM EDT Office Visit [address] [phone] Nori Bateman PA-C [address] [place] [id number] 05/26/2025 9:20 AM EDT Office Visit [address] [phone] Milli Henderson RN [address] [place] [address] 07/21/2025 9:20 AM EDT Office Visit [address] [phone] Milli Henderson RN [address] [place] [address] 09/15/2025 9:20 AM EST Office Visit [facility] [address] [place] [phone] Milli Henderson RN [address] [place] [address] documented as of this encounter Visit Diagnoses Not on filedocumented in this encounter Additional Health Concerns Assessment Noted Time PHQ-9 Depression Total Score: 14 025 1:27 PM PDT documented as of this encounter Care Teams Construction Recruiter Relationship Specialty Start Date End Date Nori Bateman PA-C [address] [place] [address] PCP - General Internal Medicine 01/26/23 documented as of this encounter
--- OUTSIDE RECORDS SUMMARY | 2025-03-11 07:33 | XMS_ITS | Clinical Summary ---
Author Organization [address] [place] [address] [place] [phone] Phone Care Team Providers Care Carpenter Supervisor Wooden Ship Name Role Phone ChildKrunal Primary Care Provider [phone] Allergies No known active allergies Medications ARIPiprazole [...] given by office for timing. 4 Active Medical History Medical History Date Comments Straining with stools DX:Straini ng with stools Abdominal discomfort DX:Abdomina l discomfort Human immunodeficiency virus (HIV) disease (CMS/HCC V24, CMS/HCC V28) DX:Human immunodefi ciency virus (HIV) disease ([facility]) Social History Tobacco Use Types Packs/Day Years [...] age to complete this topic Meningococcal B Vaccine Aged Out No l onger eligible based on patient's age to complete this topic RSV Immunization Patients Under 20 months Aged Out No longer eligible based on patient's age to complete this topic Varicella Vaccines Aged Out No longer eligible based on patient's age to complete this topic Insurance MEDICA[place] - [place] Care Teams Carpenter Supervisor Wooden Ship Relationship Specialty Start Date End Date Child, JEFFRY Hector [address] [place] [address] PCP - General 02/20/24
--- OUTSIDE RECORDS SUMMARY | 2025-03-11 07:33 | XMS_ITS | Clinical Summary ---
Author Organization [facility] Address [address] [place] [address] Care Team Providers Care Ceramic Products Sales Engineer Name Role Phone Nori Bateman PA-C Primary Care Provider [phone] Source Comments PLEASE NOTE, if this patient is a minor, it may be UNLAWFUL to discuss sensitive information that is contained in these records (such as FAMILY PLANNING, MENTAL HEALTH or SUBSTANCE ABUSE) with the minor patient's parent or other person without the patient's specific authorization.[facility] Allergies No known active allergies Medications levETIRAcetam (KEPPRA) 1,000 mg tablet TOME KIM TABLETA CADA 12 HORAS WITH 250MG TABLET 023 Active levETIRAcetam (KEPPRA) 250 mg tablet TOME KIM TABLETA CADA 12 HORAS WITH 100MG TABLET 023 Active pregabalin (LYRICA) 150 mg capsule TOME KIM C PSULA LUIS F VECES AL D A 023 Active temazepam (RESTORIL) 30 mg capsule Take by mouth nightly at bedtime 023 Active MISCELLANEOUS MEDICAL SUPPLY MISCIndications :Multiple joint pain,Fibromyalg ia,Other chronic back pain by miscellaneous route daily. Cane for daily use to prevent falls. 1 Each 023 Active magnesium oxide (MAG-OX) 400 mg (241.3 mg magnesium) tabletIndicatio ns:Reflux gastritis TOME KIM TABLETA TODOS LOS D AL ACOSTARSE *HOLD FOR LOOSE STOOLS* 023 Active rosuvastatin (CRESTOR) 5 mg tablet TOME KIM TABLETA TODOS LOS OLVERA 90 Tablet 2 024 Active cabotegravir-ri lpivirine (CABENUVA) 600 mg/3 mL- 900 mg/3 mL spERIndications :HIV disease ([facility]) Inject 0.02 mL into the muscle 56 DAYS Inject 600mg dose and 900mg dose IM Q 2 months. 1 Each 6 024 Active acetaminophen (TYLENOL) 325 mg tabletIndicatio ns:Perforated appendix TAKE 2 TABLETS BY MOUTH EVERY 6 HOURS NEEDED FOR PAIN. 30 Tablet 024 Active omeprazole (PRILOSEC) [address] capsuleIndicati ons:Gastroesoph ageal reflux disease without esophagitis Take 1 Capsule by mouth every morning before breakfast 90 Capsule 024 Active GAVILAX 17 gram/dose powderIndicatio ns:Constipation , unspecified constipation type TAKE 17 GRAMS MIXED IN WATER POR VIA ORAL ONCE DAILY 510 g 025 Active lamoTRIgine (LAMICTAL) 25 mg tablet Take 25 mg by mouth once daily 024 Active VRAYLAR 1.5 mg cap Take 1 Capsule by mouth daily 024 Active memantine (NAMENDA) 10 mg tablet Take 10 mg by mouth once daily 025 Active MYRBETRIQ 50 mg Tb24 Take 50 mg by mouth daily 025 Active lidocaine (LIDODERM) 5 % patchIndication s:Chronic bilateral low back pain without sciatica Place 1 Patch onto the skin daily Apply 1 patch to the affected area for a maximum of 12 hours, followed by removal for 12 hours. 30 Patch 025 Active pantoprazole (PROTONIX) 40 mg EC tabletIndicatio ns:Gastroesopha geal reflux disease without esophagitis TOME 1 TABLETA POR VIA ORAL TODOS LOS OLVERA ANTES DEL DESAYUNO 90 Tablet 025 Active prazosin (MINIPRESS) 2 mg capsule TAKE 1 CAPSULE BY MOUTH EVERY NIGHT 022 2024 Discontinued(T herapy completed/Not needed) mirtazapine (REMERON) 30 mg tablet TAKE 1 TABLET BY MOUTH AT BEDTIME FOR ANXIETY OR DEPRESSION 022 2024 Discontinued(T herapy completed/Not needed) ARIPiprazole (ABILIFY) 15 mg tablet Take 15 mg by mouth once daily 023 2024 Discontinued(T herapy completed/Not needed) pantoprazole (PROTONIX) 40 mg EC tabletIndicatio ns:Gastroesopha geal reflux disease without esophagitis Take 1 Tablet by mouth every morning before breakfast 90 Tablet 025 2024 Discontinued Active Problems Problem Noted Date Diagnosed Date Hepatic steatosis 03/03/2025 Gallbladder polyp 03/03/2025 Food insecurity 11/13/2024 Lack of access to [...] be given pain medication. Discussed with Dr. Nicol Cummings pager [phone] Objective/Physical Exam on Day of Discharge Vitals [...] Discharge Condition Stable Discharge Disposition Home Pancolitis ([facility]) 09/03/2023 Severe manic bipolar I disor [place] with psychotic features ([facility]) 06/22/2022 Hair plucking in adult 06/22/2022 History of syphilis 01/17/2022 Overview (01/17/2022): Tx in [place] in July 2021. One injection PCN G. Depression with anxiety 09/07/2021 Mixed hyperlipidemia 09/07/2021 HIV disease ([facility]) 10/06/2013 Overview (08/16/2021): PT reports diagnosis Bilateral carpal tunnel syndrome Chronic back pain Overview (09/10/2021): [facility] for chronic back pain who presented [...] to 3 weeks Cervical and lumbar Epilepsy ([facility]) Overview (08/14/2021): PT reports 2-3 times a week Fibromyalgia PTSD (post-traumatic stress disorder) Encounters Date Type Department Care Team Description 02/19/2025 Results Follow-Up [address] [phone] Nori Bateman PA-C 02/12/2025 1:20 PM EDT Office Visit [address] [phone] Nori Bateman PA-C Gastroesophageal reflux disease without esophagitis (Primary Dx); Right lower quadrant abdominal pain; S/P appendectomy; RLQ abdominal pain; Chronic bilateral low back pain without sciatica 02/03/2025 9:20 AM EDT Office Visit [address] [phone] Milli eHnderson RN HIV disease ([facility]) (Primary Dx) from Last 3 Months Immunizations Immunization Administration Dates Next Due Flu, Preservative Free 08/25/2023,08/01/2022,10/2021 Influenza (FLUBLOK),recombinant,injectable,preservati ve Free 11/15/2024 Influenza, Whole 07/16/2009 MENINGOCOCCAL MCV4P (MENACTRA) 03/24/2022,2021 Moderna COVID-19 Vaccine, re d cap blue label, 12+ Primary Series 07/08/2021,03/03/2021,02/03/2021 PNEUMOCOCCAL CONJUGATE PCV 13 01/24/2022 PNEUMOCOCCAL CONJUGATE PCV 20 (Prevnar) 04/19/20 24 Pfizer COVID-19 (Comirnaty), Mrna, Lnp-s, Pf, [place]-sucrose, 30 Mcg/0.3 Ml, 12yr+ 08/25/2023 Pfizer-[employer] COVID-19 Vac cine Bivalent, (FERNANDEZ PFIZER-BIONTECH COVID-19 VACCINE BIVALENT, (FERNANDEZ CAP 08/01/2022 Smallpox Mpox (JYNNEOS) Vaccine 08/02/2022,07/05 TDAP 11/26/2021 ZOSTER VACCINE, RECOMBINANT (SHINGRIX) ,10/05/2022 Family History Medical History Relation Name Comments [...] Sign Reading Time Taken Comments Blood Pressure 120/80 02/12/2025 1:27 PM EDT Pulse 72 02/12/2025 1:27 PM EDT Temperature 36.2 ??C (97.2 ??F) 11/15/2024 9:12 AM ES T Respiratory Rate 16 02/12/2025 1:27 PM EDT Oxygen Saturation 97% 11/15/2024 9:12 AM EST Inhaled Oxygen Concentration - - Weight 64.2 kg (141 lb 8 oz) 02/12/2025 1:27 PM EDT Height 167 cm (5' 5.75 ) 02/12/2025 1:27 PM EDT Body Mass Index 23.01 02/12/2025 1:27 PM EDT Plan of Treatment Upcoming Encounters Date Type Department Care Team (Late st Contact Info) Description 03/28/2025 9:20 AM EDT Office Visit [address] [phone] Milli Henderson RN [address] [place] [address] 04/16/2025 11:40 AM EDT Office Visit [address] [phone] Nori Bateman PA-C [address] [place] [address] 05/26/2025 9:20 AM EDT Office Visit [address] [phone] Milli Henderson RN [address] [place] [address] 07/21/2025 9:20 AM EDT Office Visit [address] [phone] Milli Henderson RN [address] [place] [address] 09/15/2025 9:20 AM EST Office Visit [address] [phone] Milli Henderson, RN [address] [place] [address] Health Maintenance Due Date Last Done Comments Anxiety Screening [address] CT Colonography 2024 Colonoscopy 2024 FIT/gFOBT 2024 Fecal DNA 2024 Flexible Sigmoidoscopy 2024 Had-VZBKX-72 ( season) 2024 08/25/2023, 08/01/2022, 07/08/2021, Additional history exists Colorectal Cancer Screening 03/14/2025 Postponed from 2024 (Patient postponement) Depression Monitoring 05/14/2025 02/12/2025 , 08/30/2024, 08/30/2023, Additional history exists Syphilis Screening 05/16/2025 05/16/2024, 0 05/16/2024, 02/15/2024, Additional history exists Annual Preventive Care Visit 08/30/2025 08/30/2024, 08/30/2023, 03/01/2022 Lipid Screening 08/30/2025 08/30/2024, 10/07, 07/05/2022, Additional history exists Medicare Annual Wellness Visit 08/30/2025 08/30/2024, 08/30/2023, 03/01/2022 Diabetes Screening 10/14/2025 10/14/2024, 1 , 08/30/2024, Additional history exists Tobacco Screening 11/13/2025 11/13/2024 Hypertension Screening (#1) 02/12/2026 Imm-Meningococcal (3 - Risk 2-dose series) 03/24/2027 03/24/2022, 01/24/2022 Imm-DTaP/Tdap/Td (2 - Td or Tdap) 11/26/2031 11/26/2021 Hepatitis B Screening Completed 08/17/2021 Imm-Mpox (formerly Monkeypox) Completed 08/02/2022, 07/05/2022 Imm-Zoster, Recombinant Completed 09/12/2023, 11/30 /2022 Hepatitis C Screening Completed 04/11/2024 , 04/10/2023, 01/10/2022 Imm-Pneumococcal Completed 04/19/2024, 01/24/2022 Alcohol and Drug Screen Completed 11/13/19, 08/30/2024, 03/23/2023, Additional history exists Imm-Influenza Completed 11/15/2024, 08/07, 08/01/2022, Additional history exists Imm-Hepatitis A Discontinued Imm-Hepatitis B Discontinued Imm-MMR Discontinued Procedures Procedure Name Priority Date/Time Associated Diagnosis Comments US ABDOMEN COMPLETE Routine 02/27/2025 1 1:37 AM EDT Gastroesophageal reflux disease without esophagitis Right lower quadrant abdominal pain S/P appendectomy RLQ abdominal pain IMAGING SCANNED DOCUMENT 02/27/2025 3:00 AM EDT HEPATIC FUNCTION PANEL Routine 2:12 PM EDT Right lower quadrant abdominal pain RLQ abdominal pain REFERRAL SCANNED DOCUMENT 01/14/2025 3:00 AM EDT REFERRAL SCANNED DOCUMENT 01/14/2025 3:00 AM EDT COMPREHENSIVE METABOLIC PANEL Routine 10/14/2024 9:37 AM [...] Recently Relevant to Health Maintenance Results * US ABDOMEN COMPLETE (02/27/2025 11:37 AM EDT) 02/27/2025 11:3 7 AM EDT Impressions [facility] - 02/28/2025 7:56 AM EDT IMPRESSION: ?? Diffuse hepatic steatosis. Gallbladder polyp measuring 0.4 x 0.1 x 0.2 cm. ??No cholelithiasis, gallbladder wall thickening, or biliary dilatation is appreciated. ?? Lorena Cabrera MD Signed by Lorena Cabrera MD Read by: LORENA CABRERA MD Reviewed and Electronically Signed by: LORENA CABRERA MD [facility] - 02/28/2025 7:56 AM EDT Original Report PROCEDURE: ??US ABDOMEN COMPLETE INDICATION: ??RLQ pain. ??GERD. ??Anemia. TECHNIQUE: ??Ultrasound of the Abdomen. ?? COMPARISON: ??CT A/P 05/17/2024. FINDINGS: ? The pancreas demonstrates a normal homogeneous echotexture with the tail not well seen due to overlying bowel gas. ?? The liver demonstrates increased echogenicity as compared to the right renal parenchyma. ??There is no intrahepatic biliary dilatation. ?? The gallbladder contains a small polyp measuring 0.4 x 0.1 x 0.2 cm. ??There are no stones visualized. ??There is no pericholecystic fluid or wall thickening. ?? Sonographic Michaels''s sign is reported to be negative. ??The common bile duct measures 0.3 cm. ?? The spleen measures 7.9 cm in length and demonstrates normal echotexture. ??There is a splenule measuring 2.2 x 1.2 x 2.2 cm. The right kidney measures 9.8 cm in length. ??Renal cortical echotexture is normal. ?? There is no hydronephrosis. ??There are no stones. ??There are no cysts. The left kidney measures 10.3 cm in length. ??Renal cortical echotexture is normal. ?? There is no hydronephrosis. ??There are no stones. ??There is a simple cyst within the mid pole measuring 0.8 x 0.6 x 0.7 cm. No evidence for aneurysm within the visualized portion of the abdominal aorta. ? The IVC is unremarkable. There is no evidence of free fluid within the abdomen. No masses or collections are visualized within the area of pain within the right lower quadrant. Procedure Note Default, [facility] Provider - 02/28/2025 Original Report PROCEDURE: US ABDOMEN COMPLETE INDICATION: RLQ pain. GERD. Anemia. TECHNIQUE: Ultrasound of the Abdomen. COMPARISON: CT A/P 05/17/2024. FINDINGS: The pancreas demonstrates a normal homogeneous echotexture with the tail not well seen due to overlying bowel gas. The liver demonstrates increased echogenicity as compared to the right renal parenchyma. There is no intrahepatic biliary dilatation. The gallbladder contains a small polyp measuring 0.4 x 0.1 x 0.2 cm. There are no stones visualized. There is no pericholecystic fluid or wall thickening. Sonographic Michaels''s sign is reported to be negative. The common bile duct measures 0.3 cm. The spleen measures 7.9 cm in length and demonstrates normal echotexture. There is a splenule measuring 2.2 x 1.2 x 2.2 cm. The right kidney measures 9.8 cm in length. Renal cortical echotexture is normal. There is no hydronephrosis. There are no stones. There are no cysts. The left kidney measures 10.3 cm in length. Renal cortical echotexture is normal. There is no hydronephrosis. There are no stones. There is a simple cyst within the mid pole measuring 0.8 x 0.6 x 0.7 cm. No evidence for aneurysm within the visualized portion of the abdominal aorta. The IVC is unremarkable. There is no evidence of free fluid within the abdomen. No masses or collections are visualized within the area of pain within the right lower quadrant. IMPRESSION: IMPRESSION: Diffuse hepatic steatosis. Gallbladder polyp measuring 0.4 x 0.1 x 0.2 cm. No cholelithiasis, gallbladder wall thickening, or biliary dilatation is appreciated. Lorena Cabrera MD Signed by Lorena Cabrera MD Read by: LORENA CABRERA MD Reviewed and Electronically Signed by: LORENA CABRERA MD us Nori Bateman PA-C IMG ULTRASOUND Final Result [facility] Corporate Office [address], [address] [place] [address], [place] [phone] * IMAGING SCANNED DOCUMENT (02/27/2025 3:00 AM EDT) 02/27/2025 3:00 AM EDT Nori Bateman PA-C SCAN IMAGING Final Result * HEPATIC FUNCTION PANEL (02/12/2025 2:12 PM EDT) PROTEIN, TOTAL 7.7 6.1 - 8.1 g/dL [facility] ALBUMIN 4.8 3.6 - 5.1 g/dL [facility] [employer] GLOBULIN 2.9 1.9 - 3.7 g/dL (calc) [facility] ALBUMIN/GLOBULIN RATIO 1.7 1.0 - 2.5 (calc) [facility] BILIRUBIN, TOTAL 1.0 0.2 - 1.2 mg/dL [facility] BILIRUBIN, DIRECT 0.2 0.0 - 0.2 mg/dL [facility] BILIRUBIN, INDIRECT 0.8 0.2 - 1.2 mg/dL (calc) [facility] ALKALINE PHOSPHATASE 66 36 - 130 U/L [facility] AST 14 10 - 40 U/L [facility] ALT 15 9 - 46 U/L [facility] Blood Blood / Unknown 02/12/2025 2 :12 PM EDT 02/12/2025 2:12 PM EDT Narrative [employer] [facility] - 02/13/2025 4:00 AM EDT FASTING:NO Nori Bateman PA-C LAB - BLOOD DRAW Final Resul t joiz [facility] [address] [address], [place] [facility] [address] [place] [address] * REFERRAL SCANNED DOCUMENT (01/14/2025 3:00 AM EDT) Only the most recent of2 resultswithin the time period is included. 01/14/2025 3:00 AM EDT Jorge Aguilera PA-C SCAN REFERRAL Final Result * (ABNORMAL) COMPREHENSIVE METABOLIC PANEL (10/14/2024 9:37 AM EST) GLUCOSE 104(H) 65 - 99 mg/dL [facility] Comment: ?Fasting reference interval For someone without known diabetes, a glucose value between 100 and 125 mg/dL is consistent with prediabetes and should be confirmed with a follow-up test. UREA NITROGEN (BUN) 15 7 - 25 mg/dL [facility] CREATININE (blood) 1.11 0.60 - 1.29 mg/dL [facility] EGFR 83 > OR = 60 mL/min/1. 73m2 [facility] BUN/CREATININE RATIO SEE NOTE: [facility] Comment: ?? Not Reported: BUN and Creatinine are within ?? reference range. ? SODIUM 139 135 - 146 mmol/L [facility] POTASSIUM 4.2 3.5 - 5.3 mmol/L [facility] CHLORIDE 102 98 - 110 mmol/L [facility] CARBON DIOXIDE 26 20 - 32 mmol/L [facility] CALCIUM 9.8 8.6 - 10.3 mg/dL [facility] PROTEIN, TOTAL 7.4 6.1 - 8.1 g/dL [facility] ALBUMIN 4.7 3.6 - 5.1 g/dL [facility] GLOBULIN 2.7 1.9 - 3.7 g/dL (calc) [facility] ALBUMIN/GLOBULI N RATIO 1.7 1.0 - 2.5 (calc) [facility] BILIRUBIN, TOTAL 0.3 0.2 - 1.2 mg/dL [facility] ALKALINE PHOSPHATASE 74 36 - 130 U/L [facility] AST 18 10 - 40 U/L [facility] ALT 21 9 - 46 U/L [facility] Blood Blood / Unknown 10/14/2024 9 :37 AM EST 10/14/2024 9:40 AM EST Narrative [facility] - 10/16/2024 6:44 PM EST FASTING FASTING:YES Ros Trujillo PA-C LAB - BLOOD DRAW Edited Resu lt - Final Performing Organization Address City/[facility]/ZIP Co de Phone Number [facility] [address] [address], [facility] [address] [address] * (ABNORMAL) LIPID PANEL (08/30/2024 2:40 PM EDT) [facility] CHOLESTEROL, TOTAL 203(H) <200 mg/dL [facility] HDL CHOLESTEROL 37(L) > OR = 40 mg/dL [facility] TRIGLYCERIDES 128 <150 mg/dL [facility] LDL-CHOLESTEROL 141(H) 99 mg/dL (calc) [facility] Comment: Reference range: <100 Desirable range <100 mg/dL for primary prevention; ?? <70 mg/dL for patients with CHD or diabetic patients with > or = 2 CHD risk factors. LDL-C is now calculated using the Kyle-Stout calculation, which is a validated novel method providing better accuracy than the Friedewald equation in the estimation of LDL-C. Kyle SS et al. LAURA. 2013;310(19): 2146-9831 (http://education.[employer]/faq/TKW925) CHOL/HDLC RATIO 5.5(H) <5.0 (calc) [facility] NON-HDL CHOLESTEROL 166(H) <130 mg/dL (calc) [facility] Comment: For patients with diabetes plus 1 major ASCVD risk factor, treating to a non-HDL-C goal of <100 mg/dL (LDL-C of <70 mg/dL) is considered a therapeutic option. Blood Blood / Unknown 08/30/2024 2 :40 PM EDT 08/30/2024 2:40 PM EDT Narrative [facility] - 08/31/2024 5:40 AM EDT FASTING:NO Karlo Cleveland MD LAB - BLOOD DRAW Final Result [facility] [address] [address], [facility] [address] [address] * (ABNORMAL) RPR (MONITOR) W/REFL TITER (05/16/2024 9:31 AM EDT) RPR (MONITOR) W/REFL TITER REACTIVE( A) NON-REACT EARL [facility] Comment: The RPR is a qag-ihlgfqysve-khglivme test; therefore, a treponemal-specific confirmatory test should be performed unless prior syphilis infection has been documented for this patient. Blood Blood / Unknown 05/16/2024 9 :31 AM EDT 05/16/2024 9:32 AM EDT Narrative [facility] - 05/17/2024 9:32 PM EDT SPECIMEN COLLECTED AT PROVIDER OFFICE. Ros Trujillo PA-C LAB - BLOOD DRAW Edited Resu lt - Final Performing Organization Address City/State/[facility] Co de Phone Number joiz [facility] [address] [address], [facility] [address] [address] * HEPATITIS C AB W/RFLX HCV RNA, QT, RT PCR (04/11/2024 9:47 AM EDT) Pathologist [facility] HEPATITIS C ANTIBODY NON-REACT EARL NON-REACT EARL [facility] Comment: HCV antibody was non-reactive. There is no laboratory evidence of HCV infection. In most cases, no further action is required. However, if recent HCV exposure is suspected, a test for HCV RNA (test code 57970) is suggested. For additional information please refer to http://education.[employer]/faq/VSH34q1 (This link is being provided for informational/ educational purposes only.) Blood Blood / Unknown 04/11/2024 9 :47 AM EDT 04/11/2024 9:48 AM EDT Narrative [employer] [facility] - 04/15/2024 6:32 PM EDT FASTING:YES Ros Trujillo PA-C LAB - BLOOD DRAW Edited Resu lt - Final Performing Organization Address City/[facility]/ZIP Co de Phone Number [facility] [address] [address], [facility] [address] [address] * (ABNORMAL) HEPATITIS B SURFACE ANTIBODY (HBSAB) QUAL (08/17/2021 12:15 PM EDT) HEPATITIS B SURFACE ANTIBODY QL REACTIVE( A) NON-REACT EARL [facility] Blood Blood / Unknown 08/17/2021 1 2:15 PM EDT 08/17/2021 12:16 PM EDT Narrative [employer] [facility] - 08/20/2021 6:17 PM EDT PATIENT UNABLE TO VOID; ADVISED TO RETURN FOR COLLECTION. Alberto Caballero MD LAB - BLOOD DRAW George tracy Result - Final Performing Organization Address City/[facility]/ZIP Co de Phone Number [facility] [address] [place] [address], [facility] [address] [address] from Last 3 Months or Most Recently Relevant to Health Maintenance Insurance [place] MEDICAID [employer] Care Teams Ceramic Products Sales Engineer Relationship Specialty Start Date End Date Nori Bateman PA-C [facility] [place] [address] PCP - General Internal Medicine 01/26/23
--- OUTSIDE RECORDS SUMMARY | 2025-03-11 07:33 | XMS_ITS | Encounter Summary ---
Author Organization [facility] Address [address] [place] [address] Care Team Providers Care Casino Enforcement Agent Name Role Phone Child, Krunal TERAN Primary Care Provider [phone] Encounter Details Date Type Department Care Team (Late st Contact Info) Description 11/14/2024 Lab Requisition [facility] - Main Lab [address] [facility] [place] [phone] Tom Hughes PA [address] [place] [phone] Benign essential microscopic hematuria Social History Tobacco [...] AM EST) Final Diagnosis A. Urine, Voided, ([id number]): Negative for high grade urothelial carcinoma. Results of [employer] fluorescence in situ hybridization (FISH) testing: CEP3: Normal CEP7: Normal CEP17: Normal LSI 9p21: Normal Interpretation: Normal profile Controls stained appropriately. Note: The results are intended as a screening device and should be interpreted in association with other clinical and pathological findings. 11/26/2024 8:48 AM EST [facility] Clinical Information Other microscopic hematuria R31.29 Benign essential microscopic hematuria R31.1 Cytology/Urine FISH (now) 11/26/2024 8:[address] [facility] Gross Description A. Urine, Voided, ([id number]): Received 1 TP (CYTO) 1 TP (FISH) 11/26/2024 8:[address] [facility] Disclaimer Unless otherwise specified, all tissue is 10% NB formalin fixed and paraffin embedded. Technical pathology services provided by [facility] at [address] [place] [address] [address], [place] [address] (CLIA #[id number]/Blank Trevino MD, Registered Nurse First Assistant) 11/26/2024 8:[address] [facility] Tissue Urine specimen from urethra / Unknown 11/05/2024 11/14/2024 3:55 PM EST us Tom TERAN LAB PATHOLOGY ORDERABLES Final Result [facility] [address] [place] [address], documented in this encounter Visit Diagnoses Diagnosis Benign essential microscopic hematuria documented in this encounter Care Teams Casino Enforcement Agent Relationship Specialty Start Date End Date Child, JEFFRY Hector [address] [place] [address] PCP - General 02/20/24 documented as of this encounter
[2025-03-11 07:50] VITALS: BP 112/70; PULSE 60; O2SAT 96; BMI 25.0
== END 2025-03-11 08:12 | disposition home or self-care (01) ==
PROVIDERS: PCP Physician Assistant Medical; Visit Provider Student in an Organized Health Care Education/Training Program
DX: M79.7 Fibromyalgia (principal); M77.8 Other enthesopathies, not elsewhere classified
CPT/HCPCS: 99213

== ENCOUNTER → 2025-03-11 07:31 | Outpatient (BNVA) | payer MEDICAID, SELFPAY | PROVIDERS: PCP Physician Assistant Medical; Visit Provider Student in an Organized Health Care Education/Training Program | DX: M79.7 Fibromyalgia (principal); M77.8 Other enthesopathies, not elsewhere classified; Z90.49 Acquired absence of other specified parts of digestive tract | CPT/HCPCS: 99212 ==

== ENCOUNTER → 2025-03-24 07:56 | Outpatient (REF) | payer MEDICARE, MEDICAID, SELFPAY ==
--- OUTSIDE RECORDS SUMMARY | 2025-03-24 07:58 | XMS_ITS | Clinical Summary ---
Author Organization [facility] Address [address] [place] [address] Care Team Providers Care Wildlife Biologist Name Role Phone Nori Bateman PA-C Primary Care Provider [phone] Source Comments PLEASE NOTE, if this patient [...] mouth nightly at bedtime 02/25/20 23 Active MISCELLANEOUS MEDICAL SUPPLY MISCIndications: Multiple joint pain,Fibromyalgi a,Other chronic back pain by miscellaneous route daily. Cane for daily use to prevent falls. 1 Each 03/23/20 23 Active magnesium oxide (MAG-OX) 400 mg (241.3 mg magnesium) tabletIndication s:Reflux gastritis TOME KIM TABLETA TODOS LOS D AL ACOSTARSE *HOLD FOR LOOSE STOOLS* 08/07/20 23 Active rosuvastatin (CRESTOR) 5 mg tablet TOME KIM TABLETA TOYOBANI LOS OLVERA 90 Tablet 2 09/18/20 24 Active cabotegravir-ril pivirine (CABENUVA) 600 mg/3 mL- 900 mg/3 mL spERIndications: HIV disease ([facility]) Inject 0.02 mL into the muscle 56 [...] before breakfast 90 Capsule 10/14/20 24 Active GAVILAX 17 gram/dose powderIndication s:Constipation, unspecified constipation type TAKE 17 GRAMS MIXED IN WATER POR VIA ORAL ONCE DAILY 510 g 01/24/20 25 Active lamoTRIgine (LAMICTAL) 25 mg tablet Take 25 mg by mouth once daily 09/11/20 24 Active VRAYLAR 1.5 mg cap Take 1 Capsule by mouth daily 09/09/20 24 Active memantine (NAMENDA) 10 mg tablet Take 10 mg by mouth once daily 11/20/19 25 Active MYRBETRIQ 50 mg Tb24 Take 50 mg by mouth daily 11/26/19 25 Active lidocaine (LIDODERM) 5 % patchIndications :Chronic bilateral low back pain without sciatica Place 1 Patch onto the skin daily Apply 1 patch to the affected area for a maximum of 12 hours, followed by removal for 12 hours. 30 Patch 02/13/20 25 Active pantoprazole (PROTONIX) 40 mg EC tabletIndication s:Gastroesophage al reflux disease without esophagitis TOME 1 TABLETA POR VIA ORAL TODOS LOS OLVERA ANTES DEL DESAYUNO 90 Tablet 02/17/20 25 Active Active Problems Problem Noted Date [...] medication. Discussed with Dr. Camarena Blue pager [phone] Objective/Physical Exam on Day of Discharge Vitals [...] Discharge Condition Stable Discharge Disposition Home Pancolitis ([facility]) 09/03/2023 Severe manic bipolar I disor [place] with psychotic features ([facility]) 06/22/2022 Hair plucking in adult 06/22/2022 History of syphilis 01/17/2022 Overview (01/17/2022): Tx in [place] in July 2021. One injection PCN G. Depression with anxiety 09/07/2021 Mixed hyperlipidemia 09/07/2021 HIV disease ([facility]) 10/06/2013 Overview (08/16/2021): PT reports diagnosis Bilateral carpal tunnel syndrome Chronic back pain Overview (09/10/2021): [facility] for chronic back pain who presented [...] to 3 weeks Cervical and lumbar Epilepsy ([facility]) Overview (08/14/2021): PT reports 2-3 times a week Fibromyalgia PTSD (post-traumatic stress disorder) Encounters Date Type Department Care Team Description 02/19/2025 Results Follow-Up [address] [phone] Nori Bateman PA-C HEPATIC FUNCTION PANEL, US ABDOMEN COMPLETE 02/12/2025 1:20 PM EDT Office Visit [address] [phone] Nori Bateman PA-C Gastroesophageal reflux disease without esophagitis (Primary Dx); Right lower quadrant abdominal pain; S/P appendectomy; RLQ abdominal pain; Chronic bilateral low back pain without sciatica 02/03/2025 9:20 AM EDT Office Visit [address] [phone] Milli Henderson, RN HIV disease ([facility]) (Primary Dx) from Last 3 Months Immunizations [...] Pf, [place]-sucrose, 30 Mcg/0.3 Ml, 12yr+ 08/25/2023 Pfizer-BioNTech COVID-19 Vac cine Bivalent, (FERNANDEZ PFIZER-BIONTECH COVID-19 [...] Description 03/28/2025 9:20 AM EDT Office Visit [address] [address] Milli Henderson, RN [address] [place] [address] 04/16/2025 11:40 AM EDT Office Visit [address] [phone] Nori Bateman PA-C [address] [place] [address] 05/26/2025 9:20 AM EDT Office Visit [address] [address] Milli Henderson, RN [address] [place] [address] 07/21/2025 9:20 AM EDT Office Visit [address] [address] Milli Henderson, RN 4[address] [place] [address] 09/15/2025 9:20 AM EST Office Visit [address] [address] Milli Henderson, RN [address] [place] [address] Health Maintenance Due Date Last Done Comments CT Colonography 2024 Colonoscopy 2024 Colorectal Cancer Screening 2024 FIT/gFOBT 2024 Fecal DNA 2024 Flexible Sigmoidoscopy 2024 [id number] ( season) 2024 08/25/2023, 08/01/2022, 07/08/2021, Additional history exists Depression Monitoring 05/14/2025 02/12/2025 , 08/30/2024, 08/30/2023, Additional history exists Syphilis Screening 05/16/2025 05/16/2024, 0 05/16/2024, 02/15/2024, Additional history exists Annual Wellness (Adult): Indicated (All Coverage) 08/30/2025 08/30/2024, 08/30/2023, 03/01/2022 Anxiety Screening 08/30/2025 08/30/2024 Lipid Screening 08/30/2025 08/30/2024, 10/07, 07/05/2022, Additional [...] Procedure Name Priority Date/Time Associated Diagnosis Comments REFERRAL SCANNED DOCUMENT 03/11/2025 3:00 AM EDT MEDICATIONS SCANNED DOCUMENT 03/04/2025 3:00 AM EDT US ABDOMEN COMPLETE Routine 02/27/2025 1 1:37 [...] EDT Routine general medical examination at a [facility] facility RPR (MONITOR) W/REFL TITER Routine 05/16/2024 9:31 AM EDT Possible exposure to STD HEPATITIS C AB W/RFLX HCV RNA, QT, RT PCR Routine 04/11/2024 9:47 AM EDT HIV disease ([facility]-CMS) HEPATITIS B SURF ANTIBODY HBSAB Routine 08/17/2021 12:15 PM EDT Routine adult health maintenance from Last 3 Months or Most Recently Relevant to Health Maintenance Results * REFERRAL SCANNED DOCUMENT (03/11/2025 3:00 AM EDT) Only the most recent of3 resultswithin the time period is included. 03/11/2025 3:00 AM EDT Nori Bateman PA-C SCAN REFERRAL Final Result * MEDICATIONS SCANNED DOCUMENT (03/04/2025 3:00 AM EDT) 03/04/2025 3:00 AM EDT Chia Provider Default SCAN MEDS OTHER ORDERS Fin al Result * US ABDOMEN COMPLETE (02/27/2025 11:37 AM EDT) 02/27/2025 11:3 7 AM EDT [facility] - 02/28/2025 7:56 AM EDT IMPRESSION: ?? Diffuse hepatic steatosis. Gallbladder polyp measuring 0.4 x 0.1 x 0.2 cm. ??No cholelithiasis, gallbladder wall thickening, or biliary dilatation is appreciated. ?? Lorena Cabrera MD Signed by Lorena Cabrera MD Read by: LORENA CABRERA MD Reviewed and Electronically Signed by: LORENA CABRERA MD [facility] - 02/28/2025 7:56 AM [...] the right lower quadrant. Procedure Note Default, [facility] Provider - 02/28/2025 Original Report PROCEDURE: US [...] Result [facility] Corporate Office [address], [address] [place] [address], [place] [phone] * IMAGING SCANNED DOCUMENT (02/27/2025 3:00 AM EDT) 02/27/2025 3:00 AM EDT Nori Bateman PA-C SCAN IMAGING Final Result * HEPATIC FUNCTION PANEL (02/12/2025 2:12 PM EDT) Pathologist [facility] PROTEIN, TOTAL 7.7 6.1 - 8.1 g/dL [facility] ALBUMIN 4.8 3.6 - 5.1 g/dL [facility] GLOBULIN 2.9 1.9 - 3.7 g/dL (calc) [facility] ALBUMIN/GLOBULIN RATIO 1.7 1.0 - 2.5 (calc) [facility] BILIRUBIN, TOTAL 1.0 0.2 - 1.2 mg/dL [facility] BILIRUBIN, DIRECT 0.2 0.0 - 0.2 mg/dL [facility] BILIRUBIN, INDIRECT 0.8 0.2 - 1.2 mg/dL (calc) [facility] ALKALINE PHOSPHATASE 66 36 - 130 U/L [facility] AST 14 10 - 40 U/L [facility] ALT 15 9 - 46 U/L [facility] Blood Blood / Unknown 02/12/2025 2 :12 PM EDT 02/12/2025 2:12 PM EDT Narrative [facility] - 02/13/2025 4:00 AM EDT FASTING:NO Nori Bateman PA-C LAB - BLOOD DRAW Final Resul t [facility] [address] [address], [employer] [address] [place] [address] * (ABNORMAL) COMPREHENSIVE METABOLIC PANEL (10/14/2024 9:37 AM EST) GLUCOSE 104(H) 65 - 99 mg/dL [facility] Comment: ?Fasting reference interval For someone without known diabetes, a glucose value between 100 and 125 mg/dL is consistent with prediabetes and should be confirmed with a follow-up test. UREA NITROGEN (BUN) 15 7 - 25 mg/dL [facility] CREATININE (blood) 1.11 0.60 - 1.29 mg/dL [facility] EGFR 83 > OR = 60 mL/min/1. 73m2 [facility] BUN/CREATININE RATIO SEE NOTE: [employer] Comment: ?? Not Reported: BUN and Creatinine are within ?? reference range. ? SODIUM 139 135 - 146 mmol/L [facility] POTASSIUM 4.2 3.5 - 5.3 mmol/L [facility] CHLORIDE 102 98 - 110 mmol/L [facility] CARBON DIOXIDE 26 20 - 32 mmol/L [facility] CALCIUM 9.8 8.6 - 10.3 mg/dL [facility] PROTEIN, TOTAL 7.4 6.1 - 8.1 g/dL [facility] ALBUMIN 4.7 3.6 - 5.1 g/dL [facility] GLOBULIN 2.7 1.9 - 3.7 g/dL (calc) [facility] ALBUMIN/GLOBULI N RATIO 1.7 1.0 - 2.5 (calc) [facility] BILIRUBIN, TOTAL 0.3 0.2 - 1.2 mg/dL [facility] ALKALINE PHOSPHATASE 74 36 - 130 U/L [facility] AST 18 10 - 40 U/L [facility] ALT 21 9 - 46 U/L [facility] Blood Blood / Unknown 10/14/2024 9 :37 AM EST 10/14/2024 9:40 AM EST Narrative [facility] - 10/16/2024 6:44 PM EST FASTING FASTING:YES us Ros Trujillo PA-C LAB - BLOOD DRAW Edited Resu lt - Final [facility] [address] [address], [employer] [facility] [address] [place] [address] * (ABNORMAL) LIPID PANEL (08/30/2024 2:40 PM EDT) Pathologist [facility] CHOLESTEROL, TOTAL 203(H) <200 mg/dL [facility] HDL CHOLESTEROL 37(L) > OR = 40 mg/dL [facility] TRIGLYCERIDES 128 <150 mg/dL [facility] LDL-CHOLESTEROL 141(H) 99 mg/dL (calc) [facility] Comment: Reference range: <100 Desirable range <100 mg/dL for primary prevention; ?? <70 mg/dL for patients with CHD or diabetic patients with > or = 2 CHD risk factors. LDL-C is now calculated using the Angel calculation, which is a validated novel method providing better accuracy than the Friedewald equation in the estimation of LDL-C. Kyle SS et al. LAURA. 2013;310(19): 7420-9317 (http://education.WiN MS/faq/IAD437) CHOL/HDLC RATIO 5.5(H) <5.0 (calc) [facility] NON-HDL CHOLESTEROL 166(H) <130 mg/dL (calc) [facility] Comment: For patients with diabetes plus 1 major ASCVD risk factor, treating to a non-HDL-C goal of <100 mg/dL (LDL-C of <70 mg/dL) is considered a therapeutic option. Blood Blood / Unknown 08/30/2024 2 :40 PM EDT 08/30/2024 2:40 PM EDT Narrative [facility] - 08/31/2024 5:40 AM EDT FASTING:NO Karlo Cleveland MD LAB - BLOOD DRAW Final Result [facility] [address] [address], [facility] [address] [place] [address] * (ABNORMAL) RPR (MONITOR) W/REFL TITER (05/16/2024 9:31 AM EDT) Pathologist [facility] RPR (MONITOR) W/REFL TITER REACTIVE( A) NON-REACT EARL [facility] Comment: The RPR is a uqa-zvcgbhnvrl-ifqszuxe test; therefore, a treponemal-specific confirmatory test should be performed unless prior syphilis infection has been documented for this patient. Blood Blood / Unknown 05/16/2024 9 :31 AM EDT 05/16/2024 9:32 AM EDT Narrative [facility] - 05/17/2024 9:32 PM EDT SPECIMEN COLLECTED AT PROVIDER OFFICE. Ros TERAN-C LAB - BLOOD DRAW Edited Resu lt - Final Performing Organization Address [facility] Co de Phone Number [facility] [address] [place] [address], [address] [address] * HEPATITIS C AB W/RFLX HCV RNA, QT, RT PCR (04/11/2024 9:47 AM EDT) HEPATITIS C ANTIBODY NON-REACT EARL NON-REACT EARL [facility] Comment: HCV antibody was non-reactive. There is no laboratory evidence of HCV infection. In most cases, no further action is required. However, if recent HCV exposure is suspected, a test for HCV RNA (test code 32000) is suggested. For additional information please refer to http://education.Quadriserv/faq/ZZR40e2 (This link is being provided for informational/ educational purposes only.) Blood Blood / Unknown 04/11/2024 9 :47 AM EDT 04/11/2024 9:48 AM EDT Narrative [facility] - 04/15/2024 6:32 PM EDT FASTING:YES [employer] Ros Trujillo PA-C LAB - BLOOD DRAW Edited Resu lt - Final Performing Organization Address [facility] Co de Phone Number [facility] [address] [place] [address], [employer] [address] [address] * (ABNORMAL) HEPATITIS B SURFACE ANTIBODY (HBSAB) QUAL (08/17/2021 12:15 PM EDT) HEPATITIS B SURFACE ANTIBODY QL REACTIVE( A) NON-REACT EARL [facility] [place] [facility] Blood Blood / Unknown 08/17/2021 1 2:15 PM EDT 08/17/2021 12:16 PM EDT Narrative [facility] - 08/20/2021 6:17 PM EDT PATIENT UNABLE TO VOID; ADVISED TO RETURN FOR COLLECTION. Alberto Caballero MD LAB - BLOOD DRAW George tracy Result - Final [facility] [place] [facility] [address] [address], [facility] [place] [facility] [address] [address] from Last 3 Months or Most Recently Relevant to Health Maintenance Insurance [place] [employer] Care Teams Wildlife Biologist Relationship Specialty Start Date End Date Nori Bateman PA-C [address] [place] [address] PCP - General Internal Medicine 01/26/23
--- OUTSIDE RECORDS SUMMARY | 2025-03-24 07:59 | XMS_ITS | Encounter Summary ---
Author Organization [employer] Address [address] [place] [address] Care Team Providers Care Customer Service Consultant Name Role Phone Child, Krunal TERAN Primary Care Provider [phone] Encounter Details Date Type Department Care Team (Late st Contact Info) Description 11/14/2024 Lab Requisition [facility] - Main Lab [address] [facility] [place] [phone] Tom Hughes PA [address] [place] [phone] Benign essential microscopic hematuria Social History Tobacco [...] AM EST) Final Diagnosis A. Urine, Voided, ([id number]): Negative for high grade urothelial carcinoma. Results of [employer] fluorescence in situ hybridization (FISH) testing: CEP3: Normal CEP7: Normal CEP17: Normal LSI 9p21: Normal Interpretation: Normal profile Controls stained appropriately. Note: The results are intended as a screening device and should be interpreted in association with other clinical and pathological findings. 11/26/2024 8:48 AM EST [facility] Clinical Information Other microscopic hematuria R31.29 Benign essential microscopic hematuria R31.1 Cytology/Urine FISH (now) 11/26/2024 8:48 AM [facility] Gross Description A. Urine, Voided, ([id number]): Received 1 TP (CYTO) 1 TP (FISH) 11/26/2024 8:48 AM [facility] Disclaimer Unless otherwise specified, all tissue is 10% NB formalin fixed and paraffin embedded. Technical pathology services provided by [facility] at [address] [place] [address] [address], [place] [address] (CLIA #[id number]/Blank Trevino MD, Leather Production Worker) 11/26/2024 8:48 AM [facility] Tissue Urine specimen from urethra / Unknown 11/05/2024 11/14/2024 3:55 PM EST us Tom TERAN LAB PATHOLOGY ORDERABLES Final Result [facility] [address] [place] [address], documented in this encounter Visit Diagnoses Diagnosis Benign essential microscopic hematuria documented in this encounter Care Teams Customer Service Consultant Relationship Specialty Start Date End Date Child, JEFFRY Hector [address] [place] [address] PCP - General 02/20/24 documented as of this encounter
--- OUTSIDE RECORDS SUMMARY | 2025-03-24 07:59 | XMS_ITS | Clinical Summary ---
Author Organization [address] [place] [address] [place] [address] Phone Care Team Providers Care Silk Brusher Name Role Phone ChildKrunal Primary Care Provider [phone] Allergies No known active allergies Medications ARIPiprazole [...] V28) DX:Human immunodefi ciency virus (HIV) disease ([facility]) Social History Tobacco Use Types Packs/Day Years [...] topic Insurance MEDICAID - [place] Care Teams Silk Brusher Relationship Specialty Start Date End Date Child, JEFFRY Hector [address] [place] [address] PCP - General 02/20/24
== END ==
LOC: HO.SL 07:56
PROVIDERS: PCP Physician Assistant Medical; Visit Provider Physician Assistant Medical
DX: G47.19 Other hypersomnia (principal)
CPT/HCPCS: 95806

== ENCOUNTER → 2025-03-24 08:37 | Outpatient (BNV) | payer MEDICARE, MEDICAID, SELFPAY | PROVIDERS: PCP Physician Assistant Medical; Visit Provider Psychiatry & Neurology Neurology | DX: G47.10 Hypersomnia, unspecified (principal) | CPT/HCPCS: 95806 ==

== ENCOUNTER 2025-04-17 08:51 | Outpatient (AMB) | payer MEDICAID, SELFPAY ==
--- NOTE | 2025-04-17 09:13 | MHC.OFFVIS ---
Vital Signs 04/17/25 09:16 Height 5 ft 2 in Weight 133 lb 2 oz BMI 24.3 BP 110/70 Blood Pressure Location Lt brachial Position Sitting Pulse 77 Pulse Source Pulse Oximeter Pulse Oximetry (%) 92 Oxygen Delivery Method Room Air Intake Visit Reasons: 3 mo follow up Intake Note: Patient presents for a 3 month follow up Substation Maintenance Technician Required: Yes Substation Maintenance Technician Language: Sales Store Checker Services: Substation Maintenance Technician Present Substation Maintenance Technician Name: Blue [id number] Information Interpreted: clinical only Accompanied by: Self / Same As Patient Allergies No Known Allergies Allergy (Verified 04/17/25 09:14) HPI Comments Details: 44 year old Sami speaking male here for LATASHA and chronic migraine f/u. 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 No seizure like activity since last visit and he is on Keppra 1500mg BID and does not drive. He has insomnia, and chronic day time fatigue, takes trazadone 30mg po for sleep with excessive day time sleepiness. He does not sleep well, tosses and turns a-lot wakes up feeling fatigued and in pain daily. He is following up with the therapist every other week for medication adjustment. He continues to have pain in his neck and low back, has corticosteroid shots and followed by PT. He has fibromyalgia now taking 150mg Lyrica BID and it was increased due to the spasms and joint pain. Vision blurriness is the prodrome for migraines, he needs glasses and has an upcoming appt. Headaches 1-2x week, can last 2-3 hours, l. temporal throbbing and migrates to the r. side, with photo/phono-phobia, floater and flashing lights, smells. He has continuous nausea, denies vomiting. Ubrelvy is working well. Diet is poor and he lost 3 more pounds now 133, eating smaller meals due to the nausea, is being followed GI. Mood fluctuates and he is see his therapist every other week. Memory is poor he continues to get lost in conversation and stops talking, and forgets mid-sentence. Smokes MJ recreationally 2-3x per week, for chronic pain, denies cigarettes and or alcohol use. 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 Physical Exam Vital Signs: Last Vital Signs Pulse 77 04/17/25 09:16 BP 110/70 04/17/25 09:16 Pulse Ox 92 04/17/25 09:16 Oxygen Delivery Method Room Air 04/17/25 09:16 BMI result Body Mass Index 24.3 Const General: cooperative, healthy appearing, comfortable, no acute distress and well developed Nutritional Appearance: average body habitus Orientation/consciousness: patient oriented x3 Limitations: ambulation with cane HEENT Head: Yes normocephalic and Yes atraumatic Face and sinus: Yes normal facial exam and Yes face symmetric Teeth and gingiva: other ([place] score of 3) Eyes Pupils: Equal, round and reactive pupils present Resp Effort & Inspection: normal respiratory effort and able to speak in complete sentences Auscultation: clear to auscultation bilaterally Cardio Rate: regular rate Rhythm: regular rhythm Neuro Other: Tremor of the tongue General: patient oriented x3 Cranial nerves: Yes Equal, round and reactive pupils present, Yes Normal facial strength present, Yes Ability to bilaterally rotate head present and Yes Ability to bilaterally elevate shoulders present Gait exam (Neuro): Shuffling gait present Motor exam (neuro): Motor abnormalites present (tongue movements tremors) Extrem Other: Numerous fibromyalgia tender points Mild osteoarthritic changes (Inna's nodes) of his hands but no swelling Psych Appearance: well kempt Attitude: cooperative Thought process: Normal thought process present Thought content: Normal thought content present Results Reviewed Results Reviewed: labs and HST reviewed with patient. Assessment & Plan Assessment & Plan (1) Migraine without aura: Code(s): G43.009 - Migraine without aura, not intractable, without status migrainosus Category: Medical Qualifiers: Intractability: intractable Status migrainosus presence: without status migrainosus Qualified Code(s): G43.019 - Migraine without aura, intractable, without status migrainosus (2) Cognitive dysfunction: Code(s): F09 - Unspecified mental disorder due to known physiological condition Category: Medical (3) Sleep difficulties: Code(s): G47.9 - Sleep disorder, unspecified Category: Medical (4) Positive RPR test: Comment: He has no signs of active syphilis He has no signs of neurosyphilis. 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 HIV is well controlled. Code(s): A53.0 - Latent syphilis, unspecified as early or late Category: Medical (5) Seizure: Comment: complex absence seizures- dx 2004 Code(s): R56.9 - Unspecified convulsions Category: Medical (6) Cervicalgia: Comment: PT-declined due to not effective for him 07/2024. (6mos) Code(s): M54.2 - Cervicalgia Category: Medical (7) Excessive daytime sleepiness: Code(s): G47.19 - Other hypersomnia Category: Medical Plan LATASHA HST 03/2025 was inconclusive, he continues to have sleep disturbances will send him for PSG Future consideration: Dentistry Referral For seizure: Continue Keppra 1500mg bid Continue Magnesium 400mg po at bedtime. Continue B6 200mg po daily For memory: Reviewed labs- mild anemia- pt to f/u w/ GI. + RPR, chronic- monitor RPR per ID- PCP checking. Neuro-psych eval reviewed with patient and encouraged him to engage in social activities. Continue memantine 10mg po daily Ceravicalgia declines PT due to ineffective and sensitive to corticosteroid injections. For migraine w/o aura: Continue Ubrogepant (Ubrelvy) 100mg tab, 1/2 - 1 tab (50-100mg) at onset of headache, may repeat in 2 hours. Max of 2 tabs (200mg) per 24 hours. Stop Naproxen 440mg q 12 hrs prn not able to due rectal bleed. Previous trials: Toradol inj- was effective however he is sensitive to site injections. Migraine treatment contraindications- All triptans d/t symptomatic seizure d/o. For Sleep disorder: HST 03/2025 was inconclusive and he continues to have sleep disturbances will send him for PSG Future consideration: Dentistry Referral Orders: Orders RT PSG in-lab sleep study Today G47.19 - Other hypersomnia Patient Instructions: Sleep Hygiene provided: set a scheduled bedtime and wake time to help regulate the circadian rhythm and balance the release of pituitary hormones. Sleep in a dark room, temperatures below 68 degrees, and no devices n bed. Limit caffeinated products 6 hours prior to bed, and limit fluids 2-4 hours prior to bed. Gentle night yoga, diffusing essential oils, and playing soft music can be relaxing. Coding Level of Care Code Est Pt Level 4 (75644) Complex EM visit Add On G2211 Diagnoses Intractable migraine without aura and without status migrainosus G43.019 Intractability: intractable Status migrainosus presence: without status migrainosus Cognitive dysfunction F09 Sleep difficulties G47.9 Positive RPR test A53.0 Seizure R56.9 Cervicalgia M54.2 Excessive daytime sleepiness G47.19 Time Spent (min) 40
[2025-04-17 09:16] VITALS: BP 110/70; PULSE 77; O2SAT 92; BMI 24.3
== END 2025-04-17 10:06 | disposition home or self-care (01) ==
LOC: HO.HSMS 08:51
PROVIDERS: PCP Physician Assistant Medical; Visit Provider Physician Assistant Medical
DX: G43.019 Migraine without aura, intractable, without status migrainosus (principal); R41.89 Other symptoms and signs involving cognitive functions and awareness; G47.9 Sleep disorder, unspecified; A53.0 Latent syphilis, unspecified as early or late; R56.9 Unspecified convulsions; M54.2 Cervicalgia; G47.19 Other hypersomnia
CPT/HCPCS: 99214

== ENCOUNTER → 2025-04-17 08:51 | Outpatient (BNVA) | payer MEDICAID, SELFPAY | PROVIDERS: PCP Physician Assistant Medical; Visit Provider Physician Assistant Medical | DX: G43.019 Migraine without aura, intractable, without status migrainosus (principal); G47.19 Other hypersomnia; F09 Unspecified mental disorder due to known physiological condition; G47.9 Sleep disorder, unspecified; A53.0 Latent syphilis, unspecified as early or late; R56.9 Unspecified convulsions; M54.2 Cervicalgia | CPT/HCPCS: 99212 ==

== ENCOUNTER → 2025-05-14 20:30 | Outpatient (REF) | payer MEDICARE, MEDICAID, SELFPAY ==
--- OUTSIDE RECORDS SUMMARY | 2025-05-14 21:16 | XMS_ITS | Encounter Summary ---
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 Urine, Voided, ([id number]): Negative for high grade urothelial carcinoma. Results of [employer] fluorescence in situ hybridization (FISH) testing: CEP3: Normal CEP7: Normal CEP17: Normal LSI 9p21: Normal Interpretation: Normal profile Controls stained appropriately. Note: The results are intended as a screening device and should be interpreted in association with other clinical and pathological findings. 11/26/2024 8:48 AM EST [facility] Clinical Information Other microscopic hematuria R31.29 Benign essential microscopic hematuria R31.1 Cytology/Urine FISH (now) 11/26/2024 8:48 AM [facility] Gross Description A. Urine, Voided, ([id number]): Received 1 TP (CYTO) 1 TP (FISH) 11/26/2024 8:48 AM [facility] Disclaimer Unless otherwise specified, all tissue is 10% NB formalin fixed and paraffin embedded. Technical pathology services provided by [facility] at [address] [place] [address] [address], [place] [address] (CLIA #[id number]/Blnak Trevino MD, [employer]) 11/26/2024 8:48 AM [facility] Tissue Urine specimen from urethra / Unknown 11/05/2024 11/14/2024 3:55 PM EST us Tom TERAN LAB PATHOLOGY ORDERABLES Final Result [facility] [address] [place] [address], documented in this encounter Visit Diagnoses Diagnosis Benign essential microscopic hematuria documented in this encounter Care Teams Blacksmith Hammer Operator Relationship Specialty Start Date End Date Child, JEFFRY Hector [address] [place] [address] PCP - General 02/20/24 documented as of this encounter
== END ==
LOC: HO.SL 20:30
PROVIDERS: PCP Physician Assistant Medical; Visit Provider Physician Assistant Medical
DX: G47.19 Other hypersomnia (principal)
CPT/HCPCS: 95810

== ENCOUNTER → 2025-05-14 22:23 | Outpatient (BNV) | payer MEDICARE, MEDICAID, SELFPAY | PROVIDERS: PCP Physician Assistant Medical; Visit Provider Psychiatry & Neurology Neurology | DX: R40.0 Somnolence (principal) | CPT/HCPCS: 95810 ==

== ENCOUNTER 2025-07-18 08:04 | Outpatient (AMB) | payer MEDICAID, SELFPAY ==
--- OUTSIDE RECORDS SUMMARY | 2025-07-18 08:08 | XMS_ITS | Clinical Summary ---
Author Organization [facility] Address [address] [place] [address] Care Team Providers Care Sort Supervisor Name Role Phone Nori Bateman PA-C Primary Care Provider [phone] Source Comments PLEASE NOTE, if this patient [...] *HOLD FOR LOOSE STOOLS* 08/07/20 23 Active cabotegravir-ril pivirine (CABENUVA) 600 mg/3 mL- 900 mg/3 mL spERIndications: HIV disease ([facility]) Inject 0.02 mL into the muscle 56 [...] 12 hours. 30 Patch 02/13/20 25 Active predniSONE 50 mg tabletIndication s:Subacute cough,Hypoxia Take 1 Tablet by mouth once daily. 5 Tablet 05/02/20 25 Active azithromycin (ZITHROMAX) 250 mg tabletIndication s:Subacute cough,Hypoxia Take 2 tab PO today. Then take 1 tab PO QD x4d. 6 Tablet 05/02/20 25 Active rosuvastatin (CRESTOR) 5 mg tablet TOME 1 TABLETA POR VIA ORAL TODOS [place]. 90 Tablet 2 05/23/20 25 Active pantoprazole (PROTONIX) 40 mg EC tabletIndication s:Gastroesophage al reflux disease without esophagitis TOME 1 TABLETA POR VIA ORAL TODOS [place] ANTES DEL DESAYUNO 90 Tablet 06/05/20 25 Active Hospital, Clinic, or Other Facility Administered Medication Ordered Dose Route Frequency Start Date End Date Status cabotegravir-rilpiviri ne 600 mg/3 mL- 900 mg/3 mL spER 1 mLIndications:HIV disease ([facility]) 1 mL IM Every 2 months 05/22/2025 07/21/2025 Active Active Problems Problem Noted Date Diagnosed Date Hepatic steatosis 03/03/2025 Gallbladder polyp 03/03/2025 Food insecurity 11/13/2024 Lack of access to transportation 11/13/2024 Gastroesophageal reflux disease without esophagi tis 11/13/2024 Perforated appendix 11/13/2024 Financial difficulties 08/30/2024 S/P appendectomy 08/03/2024, complicated by colon injury, converted to open 08/13/2024 Overview (08/13/2024): Images from the original note were not included. Patient: RADHA CMKEON Age: 44 Years Sex: Male : 1980 [...] medication. Discussed with Dr. Camarena Blue pager [phone] Objective/Physical Exam on Day of Discharge Vitals & Measurements T: 98.3 F HR: 65 (Peripheral) RR: 20 BP: 143/90 [...] Discharge Condition Stable Discharge Disposition Home Pancolitis ([facility]) 09/03/2023 Severe manic bipolar I disor [place] with psychotic features ([facility]) 06/22/2022 Hair plucking in adult 06/22/2022 History of syphilis 01/17/2022 Overview (01/17/2022): Tx in [place] in July 2021. One injection PCN G. Depression with anxiety 09/07/2021 Mixed hyperlipidemia 09/07/2021 HIV disease ([facility]) 10/06/2013 Overview (08/16/2021): PT reports diagnosis Bilateral carpal tunnel syndrome Chronic back pain Overview (09/10/2021): [facility] for chronic back pain who presented to [...] to 3 weeks Cervical and lumbar Epilepsy ([facility]) Overview (08/14/2021): PT reports 2-3 times a week Fibromyalgia PTSD (post-traumatic stress disorder) Encounters Date Type Department Care Team Description 05/27/2025 9:20 AM EDT Office Visit [address] [address] Milli Henderson RN 05/16/2025 9:20 AM EDT Office Visit [address] [address] Ros Trujillo PA-C 05/16/2025 Interim Notes [address] [address] Kaylah Trimble [place] 05/02/2025 10:40 AM EDT Office Visit [address] [address] Krunal Rodriguez PA-C [place], Celestia 04/28/2025 Interim Notes [address] [address] Elysia Adan MA from Last 3 Months Immunizations Immunization Administration Dates Next Due Flu, Preservative Free 08/25/2023,08/01/2022,10/2021 Influenza (FLUBLOK),recombinant,injectable,preservati ve Free 11/15/2024 Influenza, Whole 07/16/2009 MENINGOCOCCAL MCV4P (MENACTRA) 03/24/2022,2021 Moderna COVID-19 Vaccine, re d cap blue label, 12+ Primary Series 07/08/2021,03/03/2021,02/03/2021 PNEUMOCOCCAL CONJUGATE PCV 13 01/24/2022 PNEUMOCOCCAL CONJUGATE PCV 20 (Prevnar 20) 04/19 Pfizer COVID-19 (Comirnaty), Mrna, Lnp-s, Pf, Monroe-sucrose, 30 Mcg/0.3 Ml, 12yr+ 08/25/2023 Pfizer-BioNTRivalry COVID-19 Vac cine Bivalent, (FERNANDEZ PFIZER-BIONTECH COVID-19 [...] Packs/Day Years Used Date Smoking Tobacco: Never Passive Smoke Exposure: Never Smokeless Tobacco: Never Tobacco Cessation:Counseling Given: Not Answered Alcohol Use Standard Drinks/Week Comments Not Currently 0 (1 standard drink = 0.6 oz pur e alcohol) Social Connections Answer Date Recorded How often do you feel lonely or isolated from th ose around you? 2 11/13/2024 Financial Resource Strain Answer Date R ecorded Hard to pay for: Food 1 11/13/2024 Stress Answer Date Recorded Do you feel these kinds of stress these days? 2 11/13/2024 Physical Activity Answer Date Recorded Physical Activity 0 08/14/2021 Food Insecurity Answer Date Recorded Within the past 12 months, t he food you bought just didn't last and you didn't have enough money to get more. 2 11/13/19 Transportation Needs Answer Date Record ed In the past 12 months, has l ack of transportation kept you from medical appointments, meetings, work or from getting things needed for daily living? (Check all that apply) 2 2024 Housing Stability Answer Date Recorded Hard to pay for: Rent/Mortgage payment 1 11/13/2024 Safety and Environment Answer Date Hiram rded Safety 0 05/17/2022 Utilities Answer Date Recorded Hard to pay for: Utilities 1 11/13 Employment Answer Date Recorded Stress 0 01/24/2022 Sex and Gender Information Value Date Recorded Sex Assigned at Male 08/14/2021 11:20 AM PDT Legal Sex Male 7:31 AM PDT Gender Identity Male 08/14/2021 11:20 AM PDT Sexual Orientation Brito 08/14/2021 11 :20 AM PDT Last Filed Vital Signs Vital Sign Reading Time Taken Comments Blood Pressure 90/60 05/16/2025 9:18 AM EDT Pulse 77 05/16/2025 9:18 AM EDT Temperature 36.9 C (98.5 F) 05/16/2025 9:18 AM EDT Respiratory Rate 16 05/16/2025 9:18 AM EDT Oxygen Saturation 95% 05/16/2025 9:18 AM EDT Inhaled Oxygen Concentration - - Weight 61.2 kg (135 lb) 05/16/2025 9:18 AM EDT Height 154.9 cm (5' 1 ) 05/16/2025 9:18 AM EDT Body Mass Index 25.51 05/16/2025 9:18 AM EDT Plan of Treatment Upcoming Encounters Date Type Department Care Team (Late st Contact Info) Description 07/21/2025 9:20 AM EDT Office Visit [address] [phone] Milli Henderson RN 4523 [address] [place] [address] 09/18/2025 9:20 AM EST Office Visit [address] [address] Milli Henderson RN 5844 - [address] [place] [address] Health Maintenance Due Date Last Done Comments Medicare Annual Wellness Visit [address] Colonography 2024 Colonoscopy 2024 Colorectal Cancer Screening 2024 FIT/gFOBT 2024 Fecal DNA 2024 Flexible Sigmoidoscopy 2024 Depression Monitoring 05/14/2025 02/12/2025 , 08/30/2024, 08/30/2023, Additional history exists [id number] ( season) 2025 08/25/2023, 08/01/2022, 07/08/2021, Additional history exists Imm-Influenza (#1) 2025 11/15/2024, 1 , 08/01/2022, Additional history exists Anxiety Screening 08/30/2025 08/30/2024 Tobacco Screening 04/16/2026 04/16/2025 Lipid Screening 04/25/2026 04/25/2025, 08/07, 10/25/2022, Additional history exists Diabetes Screening 05/02/2026 05/02/2025, 0 04/25/2025, 04/25/2025, Additional history exists Syphilis Screening 05/02/2026 05/02/2025, 0 05/02/2025, 04/25/2025, Additional history exists Hypertension Screening (#1) 05/16/2026 Imm-Meningococcal (3 - Risk 2-dose series) 03/24/2027 03/24/2022, 01/24/2022 Imm-DTaP/Tdap/Td (2 - Td or Tdap) 11/26/2031 11/26/2021 Hepatitis B Screening Completed 08/17/2021 Imm-Mpox (formerly Monkeypox) Completed 08/02/2022, 07/05/2022 Imm-Zoster, Recombinant Completed 09/12/2023, 10/05 Imm-Pneumococcal Completed 04/19/2024, 01/24/2022 Alcohol and Drug Screen Completed 11/13/19, 08/30/2024, 03/23/2023, Additional history exists Hepatitis C Screening Completed 03/28/2025 , 04/11/2024, 04/10/2023, Additional history exists Imm-HIB Aged Out No longer eligi ble based on patient's age to complete this topic Imm-Hepatitis A Discontinued Imm-Hepatitis B Discontinued Imm-MMR Discontinued Procedures Procedure Name Priority Date/Time Associated Diagnosis Comments US THYROID Routine 06/13/2025 3:00 AM EDT Macrocytosis Hyperthyroid OTHER ORDERS SCANNED DOCUMENT 06/02/2025 3:00 AM EDT REFERRAL SCANNED DOCUMENT 05/26/2025 3:00 AM EDT ASSAY OF FREE THYROXINE Routine 05/06/2025 1:51 PM EDT IRON PANEL W TOTAL IRON BINDING CAPACITY Routine 05/06/2025 1:51 PM EDT Macrocytic anemia BLOOD COUNT RETICULOCYTE AUTOMATED Routine 05/06/2025 1:51 PM EDT Macrocytic anemia TSH W/RFLX FREE T4 Routine 05/06/2025 1: 51 PM EDT Macrocytic anemia VITAMIN B12 & FOLATE Routine 05/06/2025 1:51 PM EDT Macrocytic anemia ASSAY OF LIPASE Routine 05/06/2025 1:51 PM EDT Subacute cough Hypoxia BLOOD COUNT COMPLETE AUTOMATED Routine 05/02/2025 10:54 AM EDT Subacute cough Hypoxia COMPREHENSIVE METABOLIC PANEL Routine 05/02/2025 10:54 AM EDT Subacute cough Hypoxia RFLX - RPR TITER Routine 05/02/2025 10:5 2 AM EDT RPR (MONITOR) W/REFL TITER Routine 05/02/2025 10:52 AM EDT Possible exposure to STI RADIOLOGIC EXAM CHEST 2 VIEWS Routine 05/02/2025 3:00 AM EDT Subacute cough Hypoxia REFERRAL SCANNED DOCUMENT 04/17/2025 3:00 AM EDT HEPATITIS C AB W/RFLX HCV RNA, QT, RT PCR Routine 03/28/2025 9:30 AM EDT HIV disease ([facility]) LIPID PANEL Routine 08/30/2024 2:40 PM EDT Routine general medical examination at a [facility] care facility HEPATITIS B SURF ANTIBODY HBSAB Routine 08/17/2021 12:15 PM EDT Routine adult health maintenance from Last 3 Months or Most Recently Relevant to Health Maintenance Results * US THYROID (06/13/2025 3:00 AM EDT) 06/13/2025 3:00 AM EDT Ros Trujillo PA-C IMG ULTRASOUND Final Result [facility] Corporate Office [address], [address] [place] [address], [place] [phone] * OTHER ORDERS SCANNED DOCUMENT (06/02/2025 3:00 AM EDT) 06/02/2025 3:00 AM EDT Nori Bateman PA-C SCAN OTHER ORDERS Final Resu lt * REFERRAL SCANNED DOCUMENT (05/26/2025 3:00 AM EDT) Only the most recent of2 resultswithin the time period is included. 05/26/2025 3:00 AM EDT Nori TERAN-Everardo SCAN REFERRAL Final Result * (ABNORMAL) TSH W/RFLX FREE T4 Routine (05/06/2025 1:51 PM EDT) TSH W/REFLEX TO FT4 0.28(L) 0.40 - 4.50 mIU/L [facility] Blood Blood / Unknown 05/06/2025 1 :51 PM EDT 05/06/2025 1:52 PM EDT Krunal Rodriguez PA-C LAB - BLOOD DRAW Final Result Performing Organization Address City/[facility]/ZIP Co de Phone Number [facility] [employer] [facility] [address] [address], [place] [address] [address] * IRON PANEL W TOTAL IRON BINDING CAPACITY Routine (05/06/2025 1:51 PM EDT) [facility] IRON, TOTAL 101 50 - 180 mcg/dL [facility] IRON BINDING CAPACITY 292 250 - 425 mcg/dL (calc) [facility] % SATURATION 35 20 - 48 % (calc) [facility] Blood Blood / Unknown 05/06/2025 1 :51 PM EDT 05/06/2025 1:52 PM EDT Krunal Rodriguez PA-C LAB - BLOOD DRAW Edited Resul t - Final Performing Organization Address City/[facility]/ZIP Co de Phone Number [facility] [address] [address], [place] [address] [address] * VITAMIN B12 & FOLATE Routine (05/06/2025 1:51 PM EDT) [facility] VITAMIN B12 408 200 - 1,100 pg/mL [facility] FOLATE, SERUM 9.7 5.5 ng/mL [facility] Comment: Reference Range Low: <3.4 Borderline: 3.4-5.4 Normal: >5.4 Blood Blood / Unknown 05/06/2025 1 :51 PM EDT 05/06/2025 1:52 PM EDT Krunal Rodriguez PA-C LAB - BLOOD DRAW Edited Resul t - Final [facility] [address] [address], [place] [address] [address] * (ABNORMAL) BLOOD COUNT RETICULOCYTE AUTOMATED Routine (05/06/2025 1:51 PM EDT) [facility] RETICULOCYTE COUNT, AUTOMATED 6.4 % [facility] RETICULOCYTE, ABSOLUTE 172,800(H ) 25,000 - 90,000 cells/uL [facility] [facility] Blood Blood / Unknown 05/06/2025 1 :51 PM EDT 05/06/2025 1:52 PM EDT us Krunal BENITEZC LAB - BLOOD DRAW Edited Resul t - Final Performing Organization Address [facility] de Phone Number [facility] [place] [employer] [address] [place] [address], [place] [address] [address] * ASSAY OF FREE THYROXINE Routine (05/06/2025 1:51 PM EDT) T-4, FREE 0.9 0.8 - 1.8 ng/dL [facility] 05/06/2025 1:51 PM EDT 05/06/2025 1:52 PM EDT us Krunal Rodriguez PA-C LAB - BLOOD DRAW Final Result Performing Organization Address [facility] de Phone Number [facility] [place] [employer] [address] [address], [place] [address] [address] * ASSAY OF LIPASE Routine (05/06/2025 1:51 PM EDT) [facility] LIPASE 31 7 - 60 U/L [employer] [facility] Blood Blood / Unknown 05/06/2025 1 :51 PM EDT 05/06/2025 1:52 PM EDT us Krunal BENITEZC LAB - BLOOD DRAW Edited Resul t - Final Performing Organization Address [facility] de Phone Number [facility] [place] [employer] [address] [address], [place] [address] [address] * (ABNORMAL) BLOOD COUNT COMPLETE AUTOMATED Routine (05/02/2025 10:54 AM EDT) [facility] WHITE BLOOD CELL COUNT 9.7 3.8 - 10.8 Thousand/ uL [facility] RED BLOOD CELL COUNT 2.90(L) 4.20 - 5.80 Million/u L [facility] HEMOGLOBIN 10.4(L) 13.2 - 17.1 g/dL [facility] HEMATOCRIT 32.5(L) 38.5 - 50.0 % [facility] MCV 112.1(H) 80.0 - 100.0 fL [facility] MCH 35.9(H) 27.0 - 33.0 pg [facility] MCHC 32.0 32.0 - 36.0 g/dL [facility] Comment: For adults, a slight decrease in the calculated MCHC value (in the range of 30 to 32 g/dL) is most likely not clinically significant; however, it should be interpreted with caution in correlation with other red cell parameters and the patient's clinical condition. RDW 12.2 11.0 - 15.0 % [facility] PLATELET COUNT 316 140 - 400 Thousand/ uL [facility] MPV 10.3 7.5 - 12.5 fL [facility] Blood Blood / Unknown 05/02/2025 1 0:54 AM EDT 05/02/2025 10:55 AM EDT Narrative [facility] - 05/03/2025 10:57 AM EDT FASTING:NO Krunal Rodriguez PA-C LAB - BLOOD DRAW Edited Resul t - Final [employer] [address] [address], [employer] [address] [address] * (ABNORMAL) COMPREHENSIVE METABOLIC PANEL Routine (05/02/2025 10:54 AM EDT) GLUCOSE 101 65 - 139 mg/dL [facility] Comment: Non-fasting reference interval UREA NITROGEN (BUN) 16 7 - 25 mg/dL [facility] CREATININE (blood) 1.11 0.60 - 1.29 mg/dL [facility] EGFR 83 > OR = 60 mL/min/1. 73m2 [facility] BUN/CREATININE RATIO SEE NOTE: 6 - [facility] Comment: Not Reported: BUN and Creatinine are within reference range. SODIUM 134(L) 135 - 146 mmol/L [facility] POTASSIUM 4.1 3.5 - 5.3 mmol/L [facility] CHLORIDE 101 98 - 110 mmol/L [facility] CARBON DIOXIDE 26 20 - 32 mmol/L [facility] CALCIUM 9.4 8.6 - 10.3 mg/dL [facility] PROTEIN, TOTAL 7.3 6.1 - 8.1 g/dL [facility] ALBUMIN 4.8 3.6 - 5.1 g/dL [facility] GLOBULIN 2.5 1.9 - 3.7 g/dL (calc) [facility] ALBUMIN/GLOBULI N RATIO 1.9 1.0 - 2.5 (calc) [facility] BILIRUBIN, TOTAL 1.3(H) 0.2 - 1.2 mg/dL [facility] ALKALINE PHOSPHATASE 67 36 - 130 U/L [facility] AST 16 10 - 40 U/L [facility] ALT 11 9 - 46 U/L [facility] Blood Blood / Unknown 05/02/2025 1 0:54 AM EDT 05/02/2025 10:55 AM EDT Narrative [facility] - 05/03/2025 10:57 AM EDT FASTING:NO Krunal Rodriguez PA-C LAB - BLOOD DRAW Final Result Performing Organization Address [facility] de Phone Number [facility] [address] [address], [employer] [address] [address] * (ABNORMAL) RFLX - RPR TITER Routine (05/02/2025 10:52 AM EDT) RPR TITER 1:1(H) 0.9 [employer] [facility] 05/02/2025 10:5 2 AM EDT 05/02/2025 10:53 AM EDT Narrative [employer] [facility] - 05/06/2025 2:11 PM EDT FASTING:NO Ros Trujillo PA-C LAB - BLOOD DRAW Final Resul t Performing Organization Address City/[facility] Co de Phone Number [facility] [address] [address], [employer] [address] [address] * (ABNORMAL) RPR (MONITOR) W/REFL TITER Routine (05/02/2025 10:52 AM EDT) RPR (MONITOR) W/REFL TITER REACTIVE( A) NON-REACT EARL [facility] [facility] Comment: The RPR is a kcz-czcptmoauj-ixkwdoex test; therefore, a treponemal-specific confirmatory test should be performed unless prior syphilis infection has been documented for this patient. Blood Blood / Unknown 05/02/2025 1 0:52 AM EDT 05/02/2025 10:53 AM EDT Narrative [facility] - 05/06/2025 2:11 PM EDT FASTING:NO us Ros Trujillo PA-C LAB - BLOOD DRAW Edited Resu lt - Final [facility] [address] [address], [employer] [address] [address] * RADIOLOGIC EXAM CHEST 2 VIEWS (05/02/2025 3:00 AM EDT) 05/02/2025 3:00 AM EDT us Krunal Rodriguez PA-C IMG XRAY Final Result * HEPATITIS C AB W/RFLX HCV RNA, QT, RT PCR Routine (03/28/2025 9:30 AM EDT) HEPATITIS C ANTIBODY NON-REACT EARL NON-REACT [employer] [facility] Comment: HCV antibody was non-reactive. There is no laboratory evidence of HCV infection. In most cases, no further action is required. However, if recent HCV exposure is suspected, a test for HCV RNA (test code 50915) is suggested. For additional information please refer to http://education.Arkami/faq/CRZ32z1 (This link is being provided for informational/ educational purposes only.) Blood Blood / Unknown 03/28/2025 9 :30 AM EDT 03/28/2025 9:31 AM EDT Ros Trujillo PA-C LAB - BLOOD DRAW Edited Resu lt - Final Performing Organization Address City/[facility]/ZIP Co de Phone Number [facility] [address] [address], [employer] [address] [address] * (ABNORMAL) LIPID PANEL (08/30/2024 2:40 PM EDT) CHOLESTEROL, TOTAL 203(H) <200 mg/dL [facility] HDL CHOLESTEROL 37(L) > OR = 40 mg/dL [facility] TRIGLYCERIDES 128 <150 mg/dL [facility] LDL-CHOLESTEROL 141(H) 99 mg/dL (calc) [facility] Comment: Reference range: <100 Desirable range <100 mg/dL for primary prevention; <70 mg/dL for patients with CHD or diabetic patients with > or = 2 CHD risk factors. LDL-C is now calculated using the Kyle-Girish calculation, which is a validated novel method providing better accuracy than the Friedewald equation in the estimation of LDL-C. Kyle SS et al. LAURA. 2013;310(19): 7818-8643 (http://education.WishLink.MegaBits/faq/RZJ047) CHOL/HDLC RATIO 5.5(H) <5.0 (calc) [facility] NON-HDL CHOLESTEROL 166(H) <130 mg/dL (calc) [facility] Comment: For patients with diabetes plus 1 major ASCVD risk factor, treating to a non-HDL-C goal of <100 mg/dL (LDL-C of <70 mg/dL) is considered a therapeutic option. Blood Blood / Unknown 08/30/2024 2 :40 PM EDT 08/30/2024 2:40 PM EDT Narrative [facility] - 08/31/2024 5:40 AM EDT FASTING:NO Karlo Cleveland MD LAB - BLOOD DRAW Final Result [facility] [address] [address], [employer] [address] [address] * (ABNORMAL) HEPATITIS B SURFACE ANTIBODY (HBSAB) QUAL (08/17/2021 12:15 PM EDT) HEPATITIS B SURFACE ANTIBODY QL REACTIVE( A) NON-REACT EARL [facility] Blood Blood / Unknown 08/17/2021 1 2:15 PM EDT 08/17/2021 12:16 PM EDT Narrative [facility] [employer] - 08/20/2021 6:17 PM EDT PATIENT UNABLE TO VOID; ADVISED TO RETURN FOR COLLECTION. Alberto Caballero MD LAB - BLOOD DRAW George tracy Result - Final Performing Organization Address City/[facility]/ZIP Co de Phone Number [facility] [address] [address], [employer] [address] [address] from Last 3 Months or Most Recently Relevant to Health Maintenance [place]IC[place] Care Teams Sort Supervisor Relationship Specialty Start Date End Date Nori Bateman PA-C [address] [place] [address] PCP - General Internal Medicine 01/26/23
--- OUTSIDE RECORDS SUMMARY | 2025-07-18 08:08 | XMS_ITS | Clinical Summary ---
Author Organization [facility] Address [address] [place] [address] Phone Care Team Providers Care Call Center Assistant Name Role Phone Child, Krunal TERAN Primary Care Provider [phone] Allergies No known active allergies Medications ARIPiprazole [...] Encounters Date Type Department Care Team Description 05/02/2025 11:18 AM EDT - 05/02/2025 11:59 PM EDT Hospital Encounter [facility] Xray [address] [place] [address] Subacute cough; Hypoxemia Discharge Disposition: Home or Self Care 04/25/2025 9:17 AM EDT - 04/25/2025 11:59 PM EDT Hospital Encounter [facility] Non-Invasive Cardiology [address] [place] [id number] Bipolar disorder, current episode manic severe with psychotic features ([facility] V24, [facility] V28) Discharge Disposition: Home or Self Care from Last 3 Months Medical History Medical History Date Comments Straining with stools DX:Straini ng with stools Abdominal discomfort DX:Abdomina l discomfort Human immunodeficiency virus (HIV) disease ([facility]/HCC V24, [facility] V28) DX:Human immunodefi ciency virus (HIV) disease ([facility]) Social History Tobacco Use Types Packs/Day Years [...] series) 1998 Colorectal Cancer Screening: Colonoscopy 10/05/2022 Medicare Annual Wellness Visit 10/05/2022 Social Influencers of Health Screening 10/05/2022 Depression Screening 11/06/2024 COVID-19 Vaccine ( season) 2025 08/25/2023, 08/01/2022, 07/08/2021, Additional history exists Influenza Vaccine (#1) 2025 , 08/25/2023, 08/01/2022, Additional history exists Meningococcal ACWY Vaccine (3 - Risk 2-dose series) 03/24/2027 03/24/2022, 01/24/2022 Cholesterol Screening (Lipid Panel) 04/25/2030 04/25/2025, 08/30/2024, 08/30/2024, Additional history exists DTaP,Tdap,and Td Vaccines (2 - Td or Tdap) 11/26/2031 11/26/2021 Pneumococcal Vaccine: Pediatrics (0 to 5 Years) and At-Risk Patients (6 to 49 Years) Completed 04/19/2024, 01/24/2022 Hepatitis C Screening Completed 03/28/2025, 024 HIB Vaccines Aged Out No longer eligi [...] Procedure Name Priority Date/Time Associated Diagnosis Comments XR CHEST 2 VIEWS Routine 05/02/2025 11:3 3 AM EDT Subacute cough Hypoxemia ECG 12-LEAD Routine 04/25/2025 10:01 AM EDT Bipolar disorder, current episode manic severe with psychotic features (CMS/HCC V24, CMS/HCC V28) RAPID PLASMA REAGIN TITER Routine 04/25/2025 9:08 AM EDT Severe 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 (CMS/HCC V24, CMS/HCC V28) RAPID PLASMA REAGIN WITH REFLEX TO TITER Routine 04/25/2025 9:08 AM EDT Severe 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 (CMS/HCC V24, CMS/HCC V28) CBC WITH AUTO DIFFERENTIAL Routine 04/25/2025 9:08 AM EDT Severe 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 (CMS/HCC V24, CMS/HCC V28) THYROID STIMULATING HORMONE Routine 04/25/2025 9:08 AM EDT Severe 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 (CMS/HCC V24, CMS/HCC V28) HEMOGLOBIN A1C Routine 04/25/2025 9:08 AM EDT Severe 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 (CMS/HCC V24, CMS/HCC V28) CBC AND DIFFERENTIAL Routine 04/25/2025 9:08 AM EDT Severe 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 (CMS/HCC V24, CMS/HCC V28) VITAMIN D 25 HYDROXY Routine 04/25/2025 9:08 AM EDT Severe 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 (CMS/HCC V24, CMS/HCC V28) TREPONEMA PALLIDUM ANTIBODY WITH REFLEX TO RPR AND PARTICLE AGGLUTINATION Routine 04/25/2025 9:08 AM EDT Severe 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 (CMS/HCC V24, CMS/HCC V28) LIPID PANEL WITH REFLEX TO DIRECT LDL Routine 04/25/2025 9:08 AM EDT Severe 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 (CMS/HCC V24, CMS/HCC V28) COMPREHENSIVE METABOLIC PANEL Routine 04/25/2025 9:08 AM EDT Severe 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 (CMS/HCC V24, CMS/HCC V28) from Last 3 Months Results * XR Chest 2 Views (05/02/2025 11:33 AM EDT) Anatomical Region Laterality Modality Body Radiographic Valeria ging 05/05/2025 8:54 AM EDT Impressions 05/05/2025 8:56 AM EDT Mild scoliosis as above. Otherwise, normal examination. No change since 02/22/2024. Code 67706 -------- FINAL REPORT -------- Dictated By: Dandy Villa Dictated Date: 05/05/2025 08:54 ET Assigned Physician: Dandy Villa Reviewed and Electronically Signed By: Dandy Villa Signed Date: 05/05/2025 08:56 ET Workstation ID: [id number] Transcribed By: Self Edit Transcribed Date: 05/05/2025 08:54 ET Narrative 05/05/2025 8:56 AM EDT HISTORY: The patient is a 44-year-old male with cough and abnormal breath sounds. FINDINGS: PA and lateral radiographs of the chest demonstrate mild dextroscoliosis of the midthoracic spine and mild levoscoliosis of the lower thoracic spine, as also seen on the prior study performed 02/22/2024. The bony structures are otherwise of normal appearance. The cardiac and mediastinal contours are within normal limits. The lungs and phrenic angles are clear. Procedure Note Dandy Villa MD - 05/05/2025 HISTORY: The patient is a 44-year-old male with cough and abnormal breathsounds. FINDINGS: PA and lateral radiographs of the chest demonstrate milddextroscoliosis of the midthoracic spine and mild levoscoliosis of thelower thoracic spine, as also seen on the prior study performed 02/22/2024.The bony structures are otherwise of normal appearance. The cardiac andmediastinal contours are within normal limits. The lungs and phrenicangles are clear. IMPRESSION: Mild scoliosis as above. Otherwise, normal examination. No change since02/22/2024. Code 97041 -------- FINAL REPORT -------- Dictated By: Dandy Villa Dictated Date: 05/05/2025 08:54 ET Assigned Physician: Dandy Villa Reviewed and Electronically Signed By: Dandy Villa Signed Date: 05/05/2025 08:56 ET Workstation ID: [id number] Transcribed By: Self Edit Transcribed Date: 05/05/2025 08:54 ET us Krunal TERAN IMG XR PROCEDURES Final Result * ECG 12 lead (04/25/2025 10:01 AM EDT) [facility] Ventricular Rate ECG 55 BPM GEMUSE Atrial Rate 55 BPM GEMUSE P-R Interval 146 ms GEMUSE QRS Duration 78 ms GEMUSE Q-T Interval 408 ms GEMUSE QTc 390 ms GEMUSE P Wave [place] 32 degrees GEMUSE R [place] 52 degrees GEMUSE T [place] 61 degrees GEMUSE ECG Interpretation Sinus bradycardia Otherwise normal ECG When compared with ECG of 19-APR-2024 10:24, Nonspecific T wave abnormality, improved in Anterolateral leads Confirmed by NELIDA MACK ([id number]) on 04/25/2025 8:05:11 PM GEMUSE 04/25/2025 10:0 1 AM EDT 04/25/2025 8:05 PM EDT Gildardo Rodriguez MD ECG ORDERABLES Final Result Performing Organization Address City/[facility]/ZIP Co de Phone Number GEMUSE * (ABNORMAL) Treponema pallidum antibody with reflex to RPR and particle agglutination (04/25/2025 9:08 AM EDT) [facility] T. Pallidum Antibodies Positive( A) Negative LAB CHEMISTRY METHOD 04/25/2025 11:42 AM EDT [facility] Blood Venous blood specimen / Unknown Venipuncture / Unknown 04/25/2025 9:08 AM EDT 04/25/2025 9:58 AM EDT Gildardo Rodriguez MD LAB BLOOD ORDERABLES Final Re sult Performing Organization Address City/[facility]/ZIP Co de Phone Number [facility] [address] [place] [address], [place] [phone] * (ABNORMAL) Rapid plasma reagin titer (04/25/2025 9:08 AM EDT) [facility] Rapid Plasma Reagin Titer 1:2(A) Nonreactive 04/25/2025 2:17 PM EDT [facility] Blood Venous blood specimen / Unknown Venipuncture / Unknown 04/25/2025 9:08 AM EDT 04/25/2025 11:42 AM EDT us Gildardo Rodriguez MD LAB BLOOD ORDERABLES Final Re sult Performing Organization Address [facility]/ZIP Co de Phone Number [facility] [address] [place] [address], [place] [phone] * (ABNORMAL) Rapid plasma reagin with reflex to titer (04/25/2025 9:08 AM EDT) RPR Reactive(A ) Nonreactive 04/25/2025 2:17 PM EDT [facility] Blood Venous blood specimen / Unknown Venipuncture / Unknown 04/25/2025 9:08 AM EDT 04/25/2025 11:42 AM EDT us Gildardo Rodriguez MD LAB BLOOD ORDERABLES Final Re sult Performing Organization Address [facility]/ZIP Co de Phone Number [facility] [address] [place] [address], [place] [phone] * Lipid panel with reflex to direct LDL (04/25/2025 9:08 AM EDT) Cholesterol 147 0 - 200 mg/dL LAB CHEMISTRY METHOD 04/25/2025 10:43 AM EDT [facility] Triglycerides 143 0 - 150 mg/dL LAB CHEMISTRY METHOD 04/25/2025 10:43 AM EDT [facility] HDL 43 >=40 mg/dL LAB CHEMISTRY METHOD 04/25/2025 10:43 AM EDT [facility] LDL Calculated 75 0 - 100 mg/dL LAB CHEMISTRY METHOD 04/25/2025 10:43 AM EDT [facility] VLDL Cholesterol [place] 28.6 mg/dL LAB CHEMISTRY METHOD 04/25/2025 10:43 AM EDT [facility] Non HDL Chol. (LDL+VLDL) 104 <145 mg/dL LAB CHEMISTRY METHOD 04/25/2025 10:43 AM EDT [facility] Chol/HDL Ratio 3.4 0.0 - 4.4 LAB CHEMISTRY METHOD 04/25/2025 10:43 AM T [facility] Blood Venous blood specimen / Unknown Venipuncture / Unknown 04/25/2025 9:08 AM EDT 04/25/2025 9:58 AM EDT Gildardo Rodriguez MD LAB BLOOD ORDERABLES Final Re sult [facility] [address] [place] [address], * (ABNORMAL) CBC auto differential (04/25/2025 9:08 AM EDT) WBC 9.2 4.8 - 10.8 K/mcL LAB HEMETOLOGY METHOD 04/25/2025 10:26 AM [facility] RBC 3.10(L) 4.50 - 5.50 M/mcL LAB HEMETOLOGY METHOD 04/25/2025 10:26 AM [facility] Hemoglobin 10.8(L) 13.5 - 17.5 g/dL LAB HEMETOLOGY METHOD 04/25/2025 10:26 AM [facility] Hematocrit 33.2(L) 42.0 - 54.0 % LAB HEMETOLOGY METHOD 04/25/2025 10:26 AM [facility] MCV 108.9(H) 79.0 - 98.0 FL LAB HEMETOLOGY METHOD 04/25/2025 10:26 AM [facility] MCH 35.4(H) 27.0 - 32.0 pcg LAB HEMETOLOGY METHOD 04/25/2025 10:26 AM [facility] MCHC 32.5 32.0 - 37.0 g/dL LAB HEMETOLOGY METHOD 04/25/2025 10:26 AM [facility] RDW 17.2(H) 11.0 - 15.0 % LAB HEMETOLOGY METHOD 04/25/2025 10:26 AM [facility] Platelets 305 130 - 400 K/mcL LAB HEMETOLOGY METHOD 04/25/2025 10:26 AM [facility] MPV 10.5 7.0 - 11.0 FL LAB HEMETOLOGY METHOD 04/25/2025 10:26 AM [facility] NRBC 0.0 <1.0 % LAB HEMETOLOGY METHOD 04/25/2025 10:26 AM [facility] NRBC Absolute 0.00 <0.10 K/mcL LAB HEMETOLOGY METHOD 04/25/2025 10:26 AM [facility] Neutrophils Relative 65.0 % LAB HEMETOLOGY METHOD 04/25/2025 10:26 AM [facility] Lymphocytes Relative 22.1 % LAB HEMETOLOGY METHOD 04/25/2025 10:26 AM [facility] Monocytes Relative 7.3 % LAB HEMETOLOGY METHOD 04/25/2025 10:26 AM [facility] Eosinophils Relative 3.4 % LAB HEMETOLOGY METHOD 04/25/2025 10:26 AM [facility] Basophils Relative 0.8 % LAB HEMETOLOGY METHOD 04/25/2025 10:26 AM [facility] Immature Granulocytes Relative 1.4 % LAB HEMETOLOGY METHOD 04/25/2025 10:26 AM [facility] Neutrophils Absolute 5.96 1.50 - 7.00 K/mcL LAB HEMETOLOGY METHOD 04/25/2025 10:26 AM EDT [facility] Lymphocytes Absolute 2.03 1.00 - 5.00 K/[facility] LAB HEMETOLOGY METHOD 04/25/2025 10:26 AM EDT [facility] Monocytes Absolute 0.67 0.20 - 1.00 K/[facility] LAB HEMETOLOGY METHOD 04/25/2025 10:26 AM EDT [facility] Eosinophils Absolute 0.31 0.00 - 0.50 K/[facility] LAB HEMETOLOGY METHOD 04/25/2025 10:26 AM EDT [facility] Basophils Absolute 0.07 0.00 - 0.20 K/[facility] LAB HEMETOLOGY METHOD 04/25/2025 10:26 AM EDT [facility] Immature Granulocytes Absolute 0.13(H) 0.00 - 0.03 K/[facility] LAB HEMETOLOGY METHOD 04/25/2025 10:26 AM EDT [facility] Blood Venous blood specimen / Unknown Venipuncture / Unknown 04/25/2025 9:08 AM EDT 04/25/2025 9:58 AM EDT us Gildardo Rodriguez MD LAB BLOOD ORDERABLES Final Re sult [facility] [address] [place] [address], * (ABNORMAL) Vitamin D 25 hydroxy (04/25/2025 9:08 AM EDT) Vit D, 25-Hydroxy 27.7(L) 30.0 - 80.0 ng/mL LAB CHEMISTRY METHOD 04/25/2025 11:30 AM EDT [facility] Blood Venous blood specimen / Unknown Venipuncture / Unknown 04/25/2025 9:08 AM EDT 04/25/2025 9:58 AM EDT us Gildardo Rodriguez MD LAB BLOOD ORDERABLES Final Re sult Performing Organization Address [facility]/ZIP Co de Phone Number [facility] [address] [place] [address], [place] [phone] * Thyroid stimulating hormone (04/25/2025 9:08 AM EDT) TSH 1.31 0.40 - 4.00 mcIU/mL LAB CHEMISTRY METHOD 04/25/2025 11:31 AM EDT [facility] Blood Venous blood specimen / Unknown Venipuncture / Unknown 04/25/2025 9:08 AM EDT 04/25/2025 9:58 AM EDT us Gildardo Rodriguez MD LAB BLOOD ORDERABLES Final Re sult Performing Organization Address [facility]/ZIP Co de Phone Number [facility] [address] [place] [address], [place] [phone] * Hemoglobin A1c (04/25/2025 9:08 AM EDT) [facility] Hemoglobin A1C <4.2 <6.5 % LAB CHEMISTRY METHOD 04/25/2025 1:30 PM EDT [facility] Mean Bld Glu Estim. LAB CHEMISTRY METHOD 04/25/2025 1:30 PM EDT [facility] Comment:Unable to calculate due to HgB A1C being outside of the reportable range Blood Venous blood specimen / Unknown Venipuncture / Unknown 04/25/2025 9:08 AM EDT 04/25/2025 9:58 AM EDT us Gildardo Rodriguez MD LAB BLOOD ORDERABLES Final Re sult Performing Organization Address City/[facility]/ZIP Co de Phone Number [facility] [address] [place] [address], [place] [phone] * Comprehensive metabolic panel (04/25/2025 9:08 AM EDT) [facility] Signature Sodium 140 133 - 145 mmol/L LAB CHEMISTRY METHOD 04/25/2025 10:42 AM [facility] Potassium 4.2 3.5 - 5.5 mmol/L LAB CHEMISTRY METHOD 04/25/2025 10:42 AM [facility] Chloride 106 96 - 110 mmol/L LAB CHEMISTRY METHOD 04/25/2025 10:42 AM [facility] CO2 29 21 - 32 mmol/L LAB CHEMISTRY METHOD 04/25/2025 10:42 AM [facility] Anion Gap 5 3 - 11 LAB CHEMISTRY METHOD 04/25/2025 10:42 AM [facility] Glucose 100 70 - 100 mg/dL LAB CHEMISTRY METHOD 04/25/2025 10:42 AM [facility] BUN 13 5 - 25 mg/dL LAB CHEMISTRY METHOD 04/25/2025 10:42 AM [facility] Creatinine 0.99 0.70 - 1.30 mg/dL LAB CHEMISTRY METHOD 04/25/2025 10:42 AM [facility] eGFR 96 >=60 mL/min/1. 73m2 LAB CHEMISTRY METHOD 04/25/2025 10:42 AM [facility] Comment:Calculation based on the Chronic Kidney Disease Epidemiology Collaboration (CKD-EPI) equation refit without adjustment for race. BUN/Creatinine Ratio 13.1 LAB CHEMISTRY METHOD 04/25/2025 10:42 AM [facility] Calcium 9.0 8.5 - 10.5 mg/dL LAB CHEMISTRY METHOD 04/25/2025 10:42 AM [facility] AST (SGOT) 16 10 - 42 unit/L LAB CHEMISTRY METHOD 04/25/2025 10:42 AM [facility] ALT (SGPT) 21 10 - 60 unit/L LAB CHEMISTRY METHOD 04/25/2025 10:42 AM [facility] Alkaline Phosphatase 77 42 - 121 unit/L LAB CHEMISTRY METHOD 04/25/2025 10:42 AM EDT [facility] Total Protein 6.8 6.0 - 8.0 g/dL LAB CHEMISTRY METHOD 04/25/2025 10:42 AM EDT [facility] Albumin 3.9 3.2 - 5.0 g/dL LAB CHEMISTRY METHOD 04/25/2025 10:42 AM EDT [facility] Total Bilirubin 1.0 0.0 - 1.4 mg/dL LAB CHEMISTRY METHOD 04/25/2025 10:42 AM EDT [facility] Blood Venous blood specimen / Unknown Venipuncture / Unknown 04/25/2025 9:08 AM EDT 04/25/2025 9:58 AM EDT Gildardo Rodriguez MD LAB BLOOD ORDERABLES Final Re sult [facility] [address] [place] [address], [place] [phone] from Last 3 Months Insurance MEDICAID - [place] [employer] MEDICARE ADVANTAGE Care Teams Call Center Assistant Relationship Specialty Start Date End Date Child, JEFFRY Hector [address] [facility] [place] [address] PCP - General 02/20/24
--- OUTSIDE RECORDS SUMMARY | 2025-07-18 08:08 | XMS_ITS | Encounter Summary ---
Author Organization [facility] Address [address] [place] [address] Care Team Providers Care Director Of Business Applications Name Role Phone Child, Krunal TERAN Primary Care Provider [phone] Encounter Details Date Type Department Care Team (Late st Contact Info) Description 11/14/2024 Lab Requisition [facility] - Main Lab [address] [facility] [place] [phone] Tom Hughes PA [address] [place] [phone] Benign essential microscopic hematuria Social History Tobacco [...] AM EST) Final Diagnosis A. Urine, Voided, ([id number]): Negative for high grade urothelial carcinoma. Results of [employer] fluorescence in situ hybridization (FISH) testing: CEP3: Normal CEP7: Normal CEP17: Normal LSI 9p21: Normal Interpretation: Normal profile Controls stained appropriately. Note: The results are intended as a screening device and should be interpreted in association with other clinical and pathological findings. 11/26/2024 8:48 AM EST [facility] Clinical Information Other microscopic hematuria R31.29 Benign essential microscopic hematuria R31.1 Cytology/Urine FISH (now) 11/26/2024 8:48 AM [facility] Gross Description A. Urine, Voided, ([id number]): Received 1 TP (CYTO) 1 TP (FISH) 11/26/2024 8:48 AM [facility] Disclaimer Unless otherwise specified, all tissue is 10% NB formalin fixed and paraffin embedded. Technical pathology services provided by [facility] at [address] [place] [address] [address], [place] [address] (CLIA #[id number]/Blank Trevino MD, School Occupational Therapist) 11/26/2024 8:48 AM [facility] Tissue Urine specimen from urethra / Unknown 11/05/2024 11/14/2024 3:55 PM EST us Tom TERAN LAB PATHOLOGY ORDERABLES Final Result [facility] [address] [place] [address], documented in this encounter Visit Diagnoses Diagnosis Benign essential microscopic hematuria documented in this encounter Care Teams Director Of Business Applications Relationship Specialty Start Date End Date Child, JEFFRY Hector [address] [place] [address] PCP - General 02/20/24 documented as of this encounter
--- NOTE | 2025-07-18 08:12 | A.OFFVIS_ITS ---
Vital Signs 07/18/25 08:13 Height 5 ft 2 in Weight 134 lb 4 oz BMI 24.6 BP 112/72 Blood Pressure Location Lt brachial Position Sitting Pulse 63 Pulse Source Pulse Oximeter Pulse Oximetry (%) 97 Oxygen Delivery Method Room Air Intake Visit Reasons: 3 mo follow up Intake Note: Patient presents follow up Migraine/Sleep. PSG in chart(AHI-0, EDGAR-89%). Patient states migraines more controlled. 8 per month. Medication works when gets migraine. Nuclear Operations Specialist Required: Yes Nuclear Operations Specialist Language: Supportive Employment Case Manager Services: Nuclear Operations Specialist Present Nuclear Operations Specialist Name: Kristan [id number] Information Interpreted: non-clinical & clinical Accompanied by: Self / Same As Patient Allergies No Known Allergies Allergy (Verified 07/18/25 08:16) HPI Comments Details: 44 year old Romansh speaking male here for LATASHA and chronic migraine f/u. Nuclear Operations Specialist on IPAD HST March 2025 AHI is 1 and oxygen Nadirs to 86%, will f/u with PSG. Reviwed with pt today. Theresa seizure like activity since last visit and he is on Keppra 1500mg BID and does not drive. He says his mind is going black and he is losing time and consciousness for 5-10 seconds, vision goes blurry and lights flashing. 1-2x per week, this is his prodrome to migraines and needs to f/u with his eye doctor. He has insomnia, and chronic day time fatigue, takes trazadone 30mg po for sleep with excessive day time sleepiness. He does not sleep well, tosses and turns a-lot wakes up feeling fatigued and in pain daily. He is seeing his therapist every other week for medication adjustment,and due to mood fluctuations. He continues to have pain in his neck and low back, has corticosteroid shots and followed by PT. He has fibromyalgia now taking 150mg Lyrica BID and it was increased due to the spasms and joint pain. Headaches 1-2x week, can last 2-3 hours, l. temporal throbbing and migrates to the r. side, with photo/phono-phobia, floater and flashing lights, triggers are smells. He has continuous nausea, denies vomiting. Ubrelvy is working well decreases frequency and severity, though still has migraines. Still has 8 migraines per month and 2/week. Diet is poor and he lost 3 more pounds now 133, eating smaller meals due to the nausea, is being followed GI. Memory has improved. He is no longer smoking MJ for chronic. [facility] Medical History Mood disorder Fibromyalgia, primary HIV (human immunodeficiency virus infection) Chronic back pain Seizure Left leg weakness Surgical History History of appendectomy History of carpal tunnel release of both wrists Family History Father Drug abuse and dependence Unknown Cancer of bone Maternal Grandmother Diabetes Heart attack Maternal Grandfather Stroke Social History Household Members: Family Housing: House Alcohol intake: never Patient Tobacco Use Status: Never used Tobacco Substance Use Type: Marijuana service: No Current occupational status: unemployed 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 Physical Exam Vital Signs: Last Vital Signs Pulse 63 07/18/25 08:13 BP 112/72 07/18/25 08:13 Pulse Ox 97 07/18/25 08:13 Oxygen Delivery Method Room Air 07/18/25 08:13 BMI result Body Mass Index 24.6 Const General: cooperative, no acute distress and tired appearing Nutritional Appearance: thin Orientation/consciousness: patient oriented x3 Limitations: language barrier HEENT Head: Yes normocephalic Face and sinus: Yes normal facial exam and Yes face symmetric Teeth and gingiva: other (M[place]ampti score of 3) Eyes Pupils: Equal, round and reactive pupils present Neck Other: limited rom to the r/l Resp Effort & Inspection: normal respiratory effort and able to speak in complete sentences Auscultation: clear to auscultation bilaterally Cardio Rate: regular rate Rhythm: regular rhythm Neuro Other: Tremor of the tongue General: patient oriented x3 and moves all extremities Cranial nerves: Yes Equal, round and reactive pupils present, Yes Normal facial strength present, Yes Ability to bilaterally rotate head present and Yes Ability to bilaterally elevate shoulders present Cognition (Neuro): normal cognition Gait exam (Neuro): Normal gait present Motor exam (neuro): 5/5 motor strength present throughout, Normal motor muscle tone present throughout and Motor abnormalites present (tongue movements tremors) Coordination: njxoqd-ri-yaej test normal Extrem Other: Numerous fibromyalgia tender points Mild osteoarthritic changes (Inan's nodes) of his hands but no swelling Psych Appearance: well kempt Attitude: cooperative Thought process: Normal thought process present Thought content: Normal thought content present Results Reviewed Results Reviewed: HST no evidence of LATASHA Assessment & Plan Assessment & Plan (1) Seizure-like activity: Code(s): R56.9 - Unspecified convulsions Category: Medical (2) Migraine without aura: Code(s): G43.009 - Migraine without aura, not intractable, without status migrainosus Category: Medical Qualifiers: Status migrainosus presence: without status migrainosus Intractability: intractable Qualified Code(s): G43.019 - Migraine without aura, intractable, without status migrainosus (3) Cognitive dysfunction: Code(s): F09 - Unspecified mental disorder due to known physiological condition Category: Medical (4) Sleep difficulties: Code(s): G47.9 - Sleep disorder, unspecified Category: Medical (5) Positive RPR test: Comment: He has no signs of active syphilis He has no signs of neurosyphilis. 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 HIV is well controlled. Code(s): A53.0 - Latent syphilis, unspecified as early or late Category: Medical (6) Seizure: Comment: complex absence seizures- dx 2004 Code(s): R56.9 - Unspecified convulsions Category: Medical (7) Cervicalgia: Comment: PT-declined due to not effective for him 07/2024. (6mos) Code(s): M54.2 - Cervicalgia Category: Medical (8) Excessive daytime sleepiness: Code(s): G47.19 - Other hypersomnia Category: Medical Plan LATASHA HST 03/2025 was inconclusive and PSG no evidence of LATASHA. Dentist referral if snoring is intolerable to pt. For seizure: EEG ordered to r/o seizure activity recent, per pt. Continue Keppra 1500mg bid Continue Magnesium 400mg po at bedtime. Continue B6 200mg po daily For memory: Reviewed labs- mild anemia- pt to f/u w/ GI. + RPR, chronic- monitor RPR per ID- PCP checking. Neuro-psych eval reviewed with patient and encouraged him to engage in social activities. Continue memantine 10mg po daily Ceravicalgia declines PT due to ineffective and sensitive to corticosteroid injections. For migraine w/o aura: Continue Ubrogepant (Ubrelvy) 100mg tab, 1/2 - 1 tab (50-100mg) at onset of headache, may repeat in 2 hours. Max of 2 tabs (200mg) per 24 hours. Stop Naproxen 440mg q 12 hrs prn not able to due rectal bleed. Previous trials: Toradol inj- was effective however he is sensitive to site injections. Migraine treatment contraindications- All triptans d/t symptomatic seizure d/o. F/U in 3 months Orders: Orders EEG electroencephalogram 07/18/25 R56.9 - Unspecified convulsions Patient Instructions: Sleep Hygiene provided: set a scheduled bedtime and wake time to help regulate the circadian rhythm and balance the release of pituitary hormones. Sleep in a dark room, temperatures below 68 degrees, and no devices n bed. Limit caffeinated products 6 hours prior to bed, and limit fluids 2-4 hours prior to bed. Gentle night yoga, diffusing essential oils, and playing soft music can be relaxing. Coding Level of Care Code Est Pt Level 4 (02954) Diagnoses Seizure-like activity R56.9 Intractable migraine without aura and without status migrainosus G43.019 Status migrainosus presence: without status migrainosus Intractability: intractable Cognitive dysfunction F09 Sleep difficulties G47.9 Positive RPR test A53.0 Seizure R56.9 Cervicalgia M54.2 Excessive daytime sleepiness G47.19
[2025-07-18 08:13] VITALS: BP 112/72; PULSE 63; O2SAT 97; BMI 24.6
== END 2025-07-18 08:43 | disposition home or self-care (01) ==
LOC: HO.HSMS 08:05
PROVIDERS: PCP Physician Assistant Medical; Visit Provider Physician Assistant Medical
DX: R56.9 Unspecified convulsions (principal); G43.019 Migraine without aura, intractable, without status migrainosus; R41.89 Other symptoms and signs involving cognitive functions and awareness; G47.9 Sleep disorder, unspecified; A53.0 Latent syphilis, unspecified as early or late; M54.2 Cervicalgia; G47.19 Other hypersomnia
CPT/HCPCS: 99214

== ENCOUNTER → 2025-07-18 08:04 | Outpatient (BNVA) | payer MEDICAID, SELFPAY | PROVIDERS: PCP Physician Assistant Medical; Visit Provider Physician Assistant Medical | DX: G43.109 Migraine with aura, not intractable, without status migrainosus (principal); G47.19 Other hypersomnia; R56.9 Unspecified convulsions; A53.0 Latent syphilis, unspecified as early or late; M54.2 Cervicalgia | CPT/HCPCS: 99212 ==

== ENCOUNTER 2025-08-05 10:21 | Outpatient (REF) | payer MEDICARE, SELFPAY ==
--- NOTE | 2025-08-05 11:26 | EEG_ITS ---
Roomed Performed:?402 Reason: seizure like activity History: mood disorder, fibromyalgia, HIV, chronic back pain, seizure, left leg weakness - Patient reports episodes of mind going black and losing time and going unconscious for about 5-10 seconds. Patient reports this happening 1-2 times a week. Medication: keppra, trazadone, lyrica, ubrelvy,magnesium, vitamin B6 Technical description? Photic stimulation: completed Hyperventilation:?omitted Behavioral state: pleasant State of Consciousness: awake and sleep Skull defect: none Sedation: none Handedness: right Duration of study:?31 min 54 sec Description: This is a 16 channel EEG with an EKG lead. Patient is reported awake and asleep during the tracing. Background EEG rhythm is 10-12 hertz 5-100 microvolt posteriorly lower amplitude fast anteriorly. Photic stimulation does not produce any significant driving. Hyperventilation is not performed. Cardiac lead does not reveal any significant abnormality. Some lead and muscle artifacts are noted. No sharp wave spikes or paroxysmal tendency noted. Impression: No significant abnormality noted on this EEG. [facility]
--- OUTSIDE RECORDS SUMMARY | 2025-08-05 11:31 | XMS_ITS | Clinical Summary ---
Author Organization [facility] Address [address] [place] [address] Care Team Providers Care Site Head Name Role Phone Nori Bateman PA-C Primary Care Provider [phone] Source Comments PLEASE NOTE, if this patient [...] mL- 900 mg/3 mL spERIndications: HIV disease Inject 0.02 mL into the muscle 56 [...] 900 mg/3 mL spER 1 mLIndications:HIV disease 1 mL IM Every 2 months 05/22/2025 07/21/2025 Ended cabotegravir-rilpiviri ne 600 mg/3 mL- 900 mg/3 mL spER 3 mLIndications:HIV disease 3 mL IM Once 07/21/2025 07/21/2025 Ended Active Problems Problem Noted Date Diagnosed Date [...] medication. Discussed with Dr. Nicol Cummings pager [phone] Objective/Physical Exam on Day of Discharge Vitals [...] Discharge Condition Stable Discharge Disposition Home Pancolitis 09/03/2023 Severe manic bipolar I disorder with psychotic f eatures 06/22/2022 Hair plucking in adult 06/22/2022 History of syphilis 01/17/2022 Overview (01/17/2022): Tx in [place] in July 2021. One injection PCN G. Depression with anxiety 09/07/2021 Mixed hyperlipidemia 09/07/2021 HIV disease 10/06/2013 Overview (08/16/2021): PT reports diagnosis Bilateral carpal tunnel syndrome Chronic back pain Overview (09/10/2021): [facility] for [facility] back pain who presented [...] to 3 weeks Cervical and lumbar Epilepsy Overview (08/14/2021): PT reports 2-3 times a week Fibromyalgia PTSD (post-traumatic stress disorder) Encounters Date Type Department Care Team Description 07/21/2025 9:20 AM EDT Office Visit [address] [phone] Milli Henderson RN 05/27/2025 9:20 AM EDT Office Visit [address] [phone] Milli Henderson RN 05/16/2025 9:20 AM EDT Office Visit [address] [phone] Ros Trujillo PA-C 05/16/2025 Interim Notes [address] [phone] Kaylah Trimble MA from Last 3 Months Immunizations Immunization Administration Dates Next Due Flu, Preservative Free 08/25/2023,08/01/2022,10/2021 Influenza (FLUBLOK),recombinant,injectable,preservati ve Free 11/15/2024 Influenza, Whole 07/16/2009 MENINGOCOCCAL MCV4P (MENACTRA) 03/24/2022,2021 Moderna COVID-19 Vaccine, re d cap blue label, 12+ Primary Series 07/08/2021,03/03/2021,02/03/2021 PNEUMOCOCCAL CONJUGATE PCV 13 01/24/2022 PNEUMOCOCCAL CONJUGATE PCV 20 (Prevnar 20) 04/19 Pfizer COVID-19 (Comirnaty), Mrna, Lnp-s, Pf, [place]-sucrose, 30 Mcg/0.3 Ml, 12yr+ 08/25/2023 Fastmobile COVID-19 Vac cine Bivalent, (FERNANDEZ PFIZER-BIONTStylitics COVID-19 VACCINE BIVALENT, (FERNANDEZ CAP 08/01/2022 Smallpox [...] Care Team (Late st Contact Info) Description 09/18/2025 9:20 AM EST Office Visit [facility] [address] [place] [phone] Milli Henderson, RN [phone] [place] [address] Health Maintenance Due Date Last Done Comments Medicare Annual Wellness Visit [address] Colonography 2024 Colonoscopy 2024 Colorectal Cancer Screening 2024 FIT/gFOBT 2024 Fecal DNA 2024 Flexible Sigmoidoscopy 2024 Depression Monitoring 05/14/2025 02/12/2025 , 08/30/2024, 08/30/2023, Additional history exists [id number] ( season) 2025 08/25/2023, 08/01/2022, 07/08/2021, Additional [...] 05/06/2025 1:51 PM EDT Subacute cough Hypoxia COMPREHENSIVE METABOLIC PANEL Routine 05/02/2025 10:54 AM EDT Subacute cough Hypoxia RPR (MONITOR) W/REFL TITER Routine 05/02/2025 10:52 AM EDT Possible exposure to STI HEPATITIS C AB W/RFLX HCV RNA, QT, RT PCR Routine 03/28/2025 9:30 AM EDT HIV disease ([facility]) LIPID PANEL Routine 08/30/2024 2:40 PM EDT Routine general medical examination at a health care facility HEPATITIS B SURF ANTIBODY HBSAB Routine 08/17/2021 12:15 PM EDT Routine adult health maintenance from Last 3 Months or Most Recently Relevant to Health Maintenance Results * US THYROID (06/13/2025 3:00 AM EDT) 06/13/2025 3:00 AM EDT us Ros Trujillo PA-C IMG ULTRASOUND Final Result [facility] Corporate Office [address], [address] [place] [address], [place] [phone] * OTHER ORDERS SCANNED DOCUMENT (06/02/2025 3:00 AM EDT) 06/02/2025 3:00 AM EDT Nori Bateman PA-C SCAN OTHER ORDERS Final Resu lt * REFERRAL SCANNED DOCUMENT (05/26/2025 3:00 AM EDT) 05/26/2025 3:00 AM EDT Nori Bateman PA-C SCAN REFERRAL Final Result * (ABNORMAL) TSH W/RFLX FREE T4 Routine (05/06/2025 1:51 PM EDT) TSH W/REFLEX TO FT4 0.28(L) 0.40 - 4.50 mIU/L [employer] [facility] Blood Blood / Unknown 05/06/2025 1 :51 PM EDT 05/06/2025 1:52 PM EDT Krunal Rodriguez VA-C LAB - BLOOD DRAW Final Result Performing Organization Address City/[facility]/ZIP Co de Phone Number [employer] [address] [address], [employer] [address] [address] * IRON PANEL W TOTAL IRON BINDING CAPACITY Routine (05/06/2025 1:51 PM EDT) IRON, TOTAL 101 50 - 180 mcg/dL [employer] [facility] IRON BINDING CAPACITY 292 250 - 425 mcg/dL (calc) [place] % SATURATION 35 20 - 48 % (calc) [place] Blood Blood / Unknown 05/06/2025 1 :51 PM EDT 05/06/2025 1:52 PM EDT Krunal Rodriguez VA-C LAB - BLOOD DRAW Edited Resul t - Final Performing Organization Address City/[facility]/ZIP Co de Phone Number [employer] [address] [address], [employer] [address] [address] * VITAMIN B12 & FOLATE Routine (05/06/2025 1:51 PM EDT) [facility] VITAMIN B12 408 200 - 1,100 pg/mL [employer] [facility] FOLATE, SERUM 9.7 5.5 ng/mL [place] Comment: Reference Range Low: <3.4 Borderline: 3.4-5.4 Normal: >5.4 Blood Blood / Unknown 05/06/2025 1 :51 PM EDT 05/06/2025 1:52 PM EDT [facility] Michael VA-C LAB - BLOOD DRAW Edited Resul t - Final Performing Organization Address City/[facility]/ZIP Co de Phone Number [employer] [address] [address], [employer] [address] [address] * (ABNORMAL) BLOOD COUNT RETICULOCYTE AUTOMATED Routine (05/06/2025 1:51 PM EDT) [facility] RETICULOCYTE COUNT, AUTOMATED 6.4 % [employer] [facility] RETICULOCYTE, ABSOLUTE 172,800(H ) 25,000 - 90,000 cells/uL [employer] [facility] Blood Blood / Unknown 05/06/2025 1 :51 PM EDT 05/06/2025 1:52 PM EDT [facility] Michael TERAN-C LAB - BLOOD DRAW Edited Resul t - Final Performing Organization Address City/[facility]/ZIP Co de Phone Number [employer] [address] [address], [employer] [address] [address] * ASSAY OF FREE THYROXINE Routine (05/06/2025 1:51 PM EDT) [facility] T-4, FREE 0.9 0.8 - 1.8 ng/dL [employer] [facility] 05/06/2025 1:51 PM EDT 05/06/2025 1:52 PM EDT Krunal TERAN-C LAB - BLOOD DRAW Final Result Performing Organization Address City/[facility]/ZIP Co de Phone Number [employer] [address] [address], [employer] [address] [address] * ASSAY OF LIPASE Routine (05/06/2025 1:51 PM EDT) [facility] LIPASE 31 7 - 60 U/L [employer] [facility] Blood Blood / Unknown 05/06/2025 1 :51 PM EDT 05/06/2025 1:52 PM EDT Krunal Rodriguez PA-C LAB - BLOOD DRAW Edited Resul t - Final Performing Organization Address [facility] Co de Phone Number [employer] [address] [address], [employer] [address] [address] * (ABNORMAL) COMPREHENSIVE METABOLIC PANEL Routine (05/02/2025 10:54 AM EDT) [facility] GLUCOSE 101 65 - 139 mg/dL [employer] [facility] Comment: Non-fasting reference interval UREA NITROGEN (BUN) 16 7 - 25 mg/dL [employer] [facility] CREATININE (blood) 1.11 0.60 - 1.29 mg/dL [employer] [facility] EGFR 83 > OR = 60 mL/min/1. 73m2 [employer] [facility] BUN/CREATININE RATIO SEE NOTE: [employer] [facility] Comment: Not Reported: BUN and Creatinine are within reference range. SODIUM 134(L) 135 - 146 mmol/L [employer] [facility] POTASSIUM 4.1 3.5 - 5.3 mmol/L [employer] [facility] CHLORIDE 101 98 - 110 mmol/L [employer] [facility] CARBON DIOXIDE 26 20 - 32 mmol/L [employer] [facility] CALCIUM 9.4 8.6 - 10.3 mg/dL [employer] [facility] PROTEIN, TOTAL 7.3 6.1 - 8.1 g/dL [employer] [facility] ALBUMIN 4.8 3.6 - 5.1 g/dL [employer] [facility] GLOBULIN 2.5 1.9 - 3.7 g/dL (calc) [employer] [facility] ALBUMIN/GLOBULI N RATIO 1.9 1.0 - 2.5 (calc) [employer] [facility] BILIRUBIN, TOTAL 1.3(H) 0.2 - 1.2 mg/dL [employer] [facility] ALKALINE PHOSPHATASE 67 36 - 130 U/L [employer] [facility] AST 16 10 - 40 U/L [employer] [facility] ALT 11 9 - 46 U/L [employer] [facility] Blood Blood / Unknown 05/02/2025 1 0:54 AM EDT 05/02/2025 10:55 AM EDT Narrative [employer] [facility] - 05/03/2025 10:57 AM EDT FASTING:NO Krunal Rodriguez PA-C LAB - BLOOD DRAW Final Result Performing Organization Address [facility] de Phone Number [employer] [address] [address], [employer] [address] [address] * (ABNORMAL) RPR (MONITOR) W/REFL TITER Routine (05/02/2025 10:52 AM EDT) Pathologist [facility] RPR (MONITOR) W/REFL TITER REACTIVE( A) NON-REACT EARL [employer] [facility] Comment: The RPR is a vig-tjklauwsts-zgeamlpf test; therefore, a treponemal-specific confirmatory test should be performed unless prior syphilis infection has been documented for this patient. Blood Blood / Unknown 05/02/2025 1 0:52 AM EDT 05/02/2025 10:53 AM EDT Shauna [employer] [facility] - 05/06/2025 2:11 PM EDT FASTING:NO Ros Trujillo PA-C LAB - BLOOD DRAW Edited Resu lt - Final Performing Organization Address [facility] Co de Phone Number [employer] [address] [address], [employer] [address] [address] * HEPATITIS C AB W/RFLX HCV RNA, QT, RT PCR Routine (03/28/2025 9:30 AM EDT) Pathologist [facility] HEPATITIS C ANTIBODY NON-REACT EARL NON-REACT EARL [place] Comment: HCV antibody was non-reactive. There is no laboratory evidence of HCV infection. In most cases, no further action is required. However, if recent HCV exposure is suspected, a test for HCV RNA (test code 48595) is suggested. For additional information please refer to http://[place].WordWatch/faq/MMC53q7 (This link is being provided for informational/ educational purposes only.) Blood Blood / Unknown 03/28/2025 9 :30 AM EDT 03/28/2025 9:31 AM EDT us Ros Trujillo PA-C LAB - BLOOD DRAW Edited Resu lt - Final [employer] [address] [place] [id number], [employer] [address] [place] [phone] * (ABNORMAL) LIPID PANEL (08/30/2024 2:40 PM EDT) [facility] CHOLESTEROL, TOTAL 203(H) <200 mg/dL [place] HDL CHOLESTEROL 37(L) > OR = 40 mg/dL [facility] TRIGLYCERIDES 128 <150 mg/dL [place] LDL-CHOLESTEROL 141(H) 99 mg/dL (calc) [place] Comment: Reference range: <100 Desirable range <100 mg/dL for primary prevention; <70 mg/dL for patients with CHD or diabetic patients with > or = 2 CHD risk factors. LDL-C is now calculated using the Kyle-Girish calculation, which is a validated novel method providing better accuracy than the Friedewald equation in the estimation of LDL-C. Kyle HENNING et al. LAURA. 2013;310(19): 3498-7824 (http://education.Pirate Pay/faq/AGC528) CHOL/HDLC RATIO 5.5(H) <5.0 (calc) [place] NON-HDL CHOLESTEROL 166(H) <130 mg/dL (calc) [place] Comment: For patients with diabetes plus 1 major ASCVD risk factor, treating to a non-HDL-C goal of <100 mg/dL (LDL-C of <70 mg/dL) is considered a therapeutic option. Blood Blood / Unknown 08/30/2024 2 :40 PM EDT 08/30/2024 2:40 PM EDT Narrative [employer] [facility] [employer] - 08/31/2024 5:40 AM EDT FASTING:NO Karlo Cleveland MD LAB - BLOOD DRAW Final Result Performing Organization Address City/[facility]/ZIP Co de Phone Number [employer] [address] [address], [employer] [address] [place] [address] * (ABNORMAL) HEPATITIS B SURFACE ANTIBODY (HBSAB) QUAL (08/17/2021 12:15 PM EDT) HEPATITIS B SURFACE ANTIBODY QL REACTIVE( A) NON-REACT EARL [place] Blood Blood / Unknown 08/17/2021 1 2:15 PM EDT 08/17/2021 12:16 PM EDT Narrative [employer] - 08/20/2021 6:17 PM EDT PATIENT UNABLE TO VOID; ADVISED TO RETURN FOR COLLECTION. Alberto Caballero MD LAB - BLOOD DRAW George tracy Result - Final Performing Organization Address [facility] Co de Phone Number [employer] [address] [address], [employer] [address] [address] from Last 3 Months or Most Recently Relevant to Health Maintenance Insurance [place] [employer] MEDICARE Care Teams Site Head Relationship Specialty Start Date End Date Nori Bateman PA-C [address] [place] [id number] PCP - General Internal Medicine 01/26/23
--- OUTSIDE RECORDS SUMMARY | 2025-08-05 11:31 | XMS_ITS | Clinical Summary ---
Author Organization [address] [place] [address] [place] [phone] Phone Care Team Providers Care Beauty Operator Name Role Phone Child, Krunal TERAN Primary Care Provider [phone] Allergies No known active allergies Medications ARIPiprazole [...] V28) DX:Human immunodefi ciency virus (HIV) disease ([facility]) Social History Tobacco Use Types [...] Health Maintenance Due Date Last Done Comments Colorectal Cancer Screening: Colonoscopy 1979 MMR Vaccines (1 of 2 - Risk 2-dose series) 1997 Hepatitis A Vaccines (1 of 2 - Risk 2-dose series) 1998 Hepatitis B Vaccines (1 of 3 - 19+ 3-dose series) 1998 Medicare Annual Wellness Visit 10/05/2022 Social Influencers [...] (2 - Td or Tdap) 11/26/2031 11/26/2021 RSV Immunization Adult Patients (1 - 1-dose 75+ series) 2054 Pneumococcal Vaccine: Pediatrics (0 to 5 Years) [...] Procedure Name Priority Date/Time Associated Diagnosis Comments LIPID PANEL WITH REFLEX TO DIRECT LDL Routine 04/25/2025 9:08 AM EDT Severe 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 ([facility] V24, [facility] V28) from Last 3 Months or Most Recently Relevant to Health Maintenance Results * Lipid panel with reflex to direct LDL (04/25/2025 9:08 AM EDT) Cholesterol 147 0 - 200 mg/dL LAB CHEMISTRY METHOD 04/25/2025 10:43 AM [facility] Triglycerides 143 0 - 150 mg/dL LAB CHEMISTRY METHOD 04/25/2025 10:43 AM [facility] HDL 43 >=40 mg/dL LAB CHEMISTRY METHOD 04/25/2025 10:43 AM [facility] LDL Calculated 75 0 - 100 mg/dL LAB CHEMISTRY METHOD 04/25/2025 10:43 AM [facility] VLDL Cholesterol Arden 28.6 mg/dL LAB CHEMISTRY METHOD 04/25/2025 10:43 AM [facility] Non HDL Chol. (LDL+VLDL) 104 <145 mg/dL LAB CHEMISTRY METHOD 04/25/2025 10:43 AM [facility] Chol/HDL Ratio 3.4 0.0 - 4.4 LAB CHEMISTRY METHOD 04/25/2025 10:43 AM EDT [facility] Blood Venous blood specimen / Unknown Venipuncture / Unknown 04/25/2025 9:08 AM EDT 04/25/2025 9:58 AM EDT us Gildardo Rodriguez MD LAB BLOOD ORDERABLES Final Re sult [facility] [address] [place] [address], [place] [phone] from Last 3 Months or Most Recently Relevant to Health Maintenance Insurance [place] MEDICARE ADVANTAGE Care Teams Beauty Operator Relationship Specialty Start Date End Date Child, JEFFRY Hector [address] [place] [address] PCP - General 02/20/24
--- OUTSIDE RECORDS SUMMARY | 2025-08-05 11:31 | XMS_ITS | Encounter Summary ---
Author Organization [employer] Address [address] [place] [address] Care Team Providers Care Dry Press Operator Helper Name Role Phone Child, Krunal TERAN Primary Care Provider [phone] Encounter Details Date Type Department Care Team (Late st Contact Info) Description 11/14/2024 Lab Requisition [facility] - Main Lab [address] [facility] [place] [phone] Tom Hughes PA [address] [place] [phone] Benign essential microscopic hematuria Social History Tobacco [...] AM EST) Final Diagnosis A. Urine, Voided, ([id number]): Negative for high grade urothelial carcinoma. Results of Uro[employer]ion fluorescence in situ hybridization (FISH) testing: CEP3: Normal CEP7: Normal CEP17: Normal LSI 9p21: Normal Interpretation: Normal profile Controls stained appropriately. Note: The results are intended as a screening device and should be interpreted in association with other clinical and pathological findings. 11/26/2024 8:48 AM EST [facility] Clinical Information Other microscopic hematuria R31.29 Benign essential microscopic hematuria R31.1 Cytology/Urine FISH (now) 11/26/2024 8:48 AM [facility] Gross Description A. Urine, Voided, ([id number]): Received 1 TP (CYTO) 1 TP (FISH) 11/26/2024 8:48 AM [facility] Disclaimer Unless otherwise specified, all tissue is 10% NB formalin fixed and paraffin embedded. Technical pathology services provided by [facility] at [address] [place] [address] [address], [place] [address] (CLIA #[id number]/Blank Trevino MD, Pediatric Clinical Nurse Specialist) 11/26/2024 8:48 AM [facility] Tissue Urine specimen from urethra / Unknown 11/05/2024 11/14/2024 3:55 PM EST us Tom TERAN LAB PATHOLOGY ORDERABLES Final Result [facility] [address] [place] [address], documented in this encounter Visit Diagnoses Diagnosis Benign essential microscopic hematuria documented in this encounter Care Teams Dry Press Operator Helper Relationship Specialty Start Date End Date Child, JEFFRY Hector [address] [place] [address] PCP - General 02/20/24 documented as of this encounter
== END 2025-08-05 10:22 | disposition home or self-care (01) ==
LOC: HO.NEURO 10:21
PROVIDERS: PCP Physician Assistant Medical; Visit Provider Physician Assistant Medical
DX: R56.9 Unspecified convulsions (principal)
CPT/HCPCS: 95819

== ENCOUNTER → 2025-08-05 11:26 | Outpatient (BNV) | payer MEDICARE, SELFPAY | PROVIDERS: PCP Physician Assistant Medical; Visit Provider Psychiatry & Neurology Neurology | DX: R56.9 Unspecified convulsions (principal) | CPT/HCPCS: 95819 ==

== ENCOUNTER 2025-08-29 08:31 | Outpatient (AMB) | payer MEDICAID, SELFPAY ==
[2025-08-29 08:32] VITALS: BP 112/70; PULSE 71; O2SAT 95
--- NOTE | 2025-08-29 08:32 | A.OFFVIS_ITS ---
Vital Signs 08/29/25 08:32 Height 5 ft 2 in BP 112/70 Blood Pressure Location Rt brachial Position Sitting Pulse 71 Pulse Source Pulse Oximeter Pulse Oximetry (%) 95 Oxygen Delivery Method Room Air Intake Visit Reasons: 1 mo follow up Intake Note: Patient presents follow up Seizure/Migraine. EEG in chart Marketing Information Analyst Required: Yes Marketing Information Analyst Services: Marketing Information Analyst Present Marketing Information Analyst Name: Gricelda ID: [id number] Accompanied by: Self / Same As Patient Allergies No Known Allergies Allergy (Verified 08/29/25 08:32) HPI Comments Details: 45 year old English speaking male presents for seizure like activity and chronic migraines. 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 He says his mind goes blank, he loses time and consciousness for 5-10 seconds, his vision goes blurry sees flashing lights and this has been continuous for months, his pscyh added Lamotrigine 50mg po daily. He denies drooling, biting tongue, eyes rolling into the back of his head, urinary loss, shaking of the body. This is the same prodrome which signals onset of his migraines and he is taking Ubrelvy 50-100mg and it is working well decreased frequency and severity, though still has 8 migraines per month and 2/week.The headaches are less intense, 1-2x week and last 2-3 hours. Always begin with l. sided temporal throbbing and migrates to the r. side, with photo/phono-phobia, floater and flashing lights, triggers are smells. He denies nausea, denies vomiting. Has vertigo, dizziness and gait instability. He has insomnia, and day time fatigue, he takes trazadone 30mg po for sleep when he paces at night and can not fall asleep.He does not sleep through the night, he tosses and turns, with multiple arousals, and wakes up feeling fatigued with pain daily. He is seeing his therapist every other week for medication adjustment,and due to mood fluctuations.He continues to have pain in his neck with rotation of the neck, and chronic low back. He is followed by [facility] and stopped PT as it was aggravating cervicalgia and triggering onset of headaches.He has fibromyalgia now taking 150mg Lyrica BID with Baclofen 5mg po daily for chronic spasms and joint pain. He walks 3 days a week for 15- 30min and does not want to exert himself as he feels depleted in energy reserves.He is being followed by oncologist for HIV and low CD 4 counts. Memory is poor, he forgets to take his medication, forgets his appts, forgets to complete tasks, or will start multiple tasks and gets disctracted then confused as to what he is doing. He must go places with a freind, if he does not he will get lost. He does not drive. Diet is poor and he lost 3 more pounds now 133, eating smaller meals now. GERD is managed with pantoprazole 40mg qd. He drinks plenty of water 2-3 bottles of 16- 20 ounces and is staying hydrated. He does not smoke MJ for chronic pain. He does not drink alcohol anymore. [facility] Medical History Mood disorder Fibromyalgia, primary HIV (human immunodeficiency virus infection) Chronic back pain Seizure Left leg weakness Surgical History History of appendectomy History of carpal tunnel release of both wrists Family History Father Drug abuse and dependence Unknown Cancer of bone Maternal Grandmother Diabetes Heart attack Maternal Grandfather Stroke Social History Household Members: Family Housing: House Alcohol intake: never Patient Tobacco Use Status: Never used Tobacco Substance Use Type: Marijuana service: No Current occupational status: unemployed 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 limited extension Resp Effort & Inspection: normal respiratory effort and able to speak in complete sentences Cardio Rate: regular rate Rhythm: regular rhythm Neuro Other: Tremor of the tongue on protrusion Limited ROM to the left, unable to extend the neck. General: patient oriented x3 and moves all extremities Cranial nerves: Yes Equal, round and reactive pupils present, Yes Normal accommodation reflex present, Yes Nystagmus not present, Yes Normal facial strength present, Yes Midline tongue present and Yes Ability to bilaterally elevate shoulders present Cognition (Neuro): normal cognition Gait exam (Neuro): Normal gait present Motor exam (neuro): Abnormal motor strength present, Abnormal muscle tone present and Motor abnormalites present (tongue movements tremors) Extrem Other: Numerous fibromyalgia tender points Mild osteoarthritic changes (Inna's nodes) of his hands but no swelling Psych Appearance: well kempt Attitude: cooperative Thought process: Normal thought process present Thought content: Normal thought content present Results Reviewed Results Reviewed: Description: This is a 16 channel EEG with an EKG lead. Patient is reported awake and asleep during the tracing. Background EEG rhythm is 10-12 hertz 5-100 microvolt posteriorly lower amplitude fast anteriorly. Photic stimulation does not produce any significant driving. Hyperventilation is not performed. Cardiac lead does not reveal any significant abnormality. Some lead and muscle artifacts are noted. No sharp wave spikes or paroxysmal tendency noted. -Impression: No significant abnormality noted on this EEG. HST March 2025 AHI is 1 and oxygen Nadirs to 86%, PSG 07/2025 AHI is 0 and oxygen is 92%, no evidence of LATASHA. EEG reviewed with pt. Assessment & Plan Assessment & Plan (1) Seizure-like activity: Code(s): R56.9 - Unspecified convulsions Category: Medical (2) Migraine without aura: Code(s): G43.009 - Migraine without aura, not intractable, without status migrainosus Category: Medical Qualifiers: Status migrainosus presence: without status migrainosus Intractability: intractable Qualified Code(s): G43.019 - Migraine without aura, intractable, without status migrainosus (3) Sleep difficulties: Code(s): G47.9 - Sleep disorder, unspecified Category: Medical (4) Positive RPR test: Comment: He has no signs of active syphilis He has no signs of neurosyphilis. 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 HIV is well controlled. Code(s): A53.0 - Latent syphilis, unspecified as early or late Category: Medical (5) Seizure: Comment: complex absence seizures- dx 2004 Code(s): R56.9 - Unspecified convulsions Category: Medical (6) Cervicalgia: Comment: PT-declined due to not effective for him 07/2024. (6mos) Code(s): M54.2 - Cervicalgia Category: Medical (7) Excessive daytime sleepiness: Code(s): G47.19 - Other hypersomnia Category: Medical (8) Forgetfulness: Code(s): R68.89 - Other general symptoms and signs Category: Medical (9) Insomnia: Code(s): G47.00 - Insomnia, unspecified Category: Medical Qualifiers: Insomnia type: paradoxical Qualified Code(s): F51.03 - Paradoxical insomnia Plan LATASHA HST 03/2025 was inconclusive and PSG no evidence of LATASHA. Dentist referral if snoring is intolerable. Insomnia with chronic daytime fatigue will start Ambien 5mg po daily at bedtime For seizure like activity EEG reviewed with pt. no significant abnormality is noted. Continue Keppra 1500mg bid Continue Lamotrigine 50mg qam per psychiatrist. Continue Magnesium 400mg po at bedtime. Continue B6 200mg po at bedtime. Driving is prohibitted due to seizure like activity For Memory Reviewed labs- mild anemia- pt to f/u w/ GI. + RPR, chronic- monitor RPR per ID- PCP and oncology following CD 4 trends. Neuro-psych eval reviewed with patient and encouraged him to engage in social activities, walking start learning new tasks to train yourself to stay engaged. Set alarms for medication on your phone as reminders, limit activities which require multi tasking. Forgetfulness continue memantine 10mg po daily per psych. Cervicalgia declines PT due to exertion of pain and sensitivity to corticosteroid injections, he continues home PT with stretching. For Migraine w/o aura Continue Ubrogepant (Ubrelvy) 100mg tab, 1/2 - 1 tab (50-100mg) at onset of headache, may repeat in 2 hours. Max of 2 tabs (200mg) per 24 hours. Migraines frequency and severity has decreased since he started Ubrelvy. Fibromyalgia continue to see [facility] Continue Lyrica 150mg po BID and Baclofen 5mg po qhs Stop Naproxen 440mg q 12 hrs prn not able to due rectal bleed. GERD continue pantoprazole 40mg po daily. Previous trials: Toradol inj- was effective however he is sensitive to site injections. Migraine treatment contraindications- All triptans d/t symptomatic seizure d/o. F/U in 3 months. Medications: New zolpidem (Ambien) 5 mg PO BEDTIME 30 tabs 0RF insomnia 1 month MDD 5mg F51.03 - Paradoxical insomnia, G47.9 - Sleep disorder, unspecified Patient Instructions: Sleep Hygiene provided: set a scheduled bedtime and wake time to help regulate the circadian rhythm and balance the release of pituitary hormones. Sleep in a dark room, temperatures below 68 degrees, and no devices n bed. Limit caffeinated products 6 hours prior to bed, and limit fluids 2-4 hours prior to bed. Gentle night yoga, diffusing essential oils, and playing soft music can be relaxing. Pt Education: Three most important factors for seizure like activities to optimize best outcomes: 1. Avoid triggers / stress 2. Improve dietary needs and stay well hydrated. 3. Sleep 8 hours or more at night. Coding Level of Care Code Est Pt Level 4 (25298) Complex EM visit Add On G2211 Diagnoses Seizure-like activity R56.9 Intractable migraine without aura and without status migrainosus G43.019 Status migrainosus presence: without status migrainosus Intractability: intractable Sleep difficulties G47.9 Positive RPR test A53.0 Seizure R56.9 Cervicalgia M54.2 Excessive daytime sleepiness G47.19 Forgetfulness R68.89 Paradoxical insomnia F51.03 Insomnia type: paradoxical
== END 2025-08-29 09:22 | disposition home or self-care (01) ==
LOC: HO.HSMS 08:31
PROVIDERS: PCP Physician Assistant Medical; Visit Provider Physician Assistant Medical
DX: R56.9 Unspecified convulsions (principal); G43.019 Migraine without aura, intractable, without status migrainosus; G47.9 Sleep disorder, unspecified; A53.0 Latent syphilis, unspecified as early or late; M54.2 Cervicalgia; G47.19 Other hypersomnia; R68.89 Other general symptoms and signs; F51.03 Paradoxical insomnia
CPT/HCPCS: 99214

== ENCOUNTER → 2025-08-29 08:31 | Outpatient (BNVA) | payer MEDICAID, SELFPAY | PROVIDERS: PCP Physician Assistant Medical; Visit Provider Physician Assistant Medical | DX: B20 Human immunodeficiency virus [HIV] disease (principal); F51.03 Paradoxical insomnia; G47.19 Other hypersomnia; R41.3 Other amnesia; R56.9 Unspecified convulsions; G43.019 Migraine without aura, intractable, without status migrainosus; M54.2 Cervicalgia; Z79.899 Other long term (current) drug therapy | CPT/HCPCS: 99212 ==

== ENCOUNTER 2025-09-11 10:03 | Outpatient (AMB) | payer MEDICARE, MEDICAID, SELFPAY ==
--- NOTE | 2025-09-11 10:33 | A.OFFVIS_ITS ---
Vital Signs 09/11/25 10:41 Height 5 ft 2 in Weight 133 lb 13.129 oz BMI 24.5 BP 102/60 Blood Pressure Location Lt brachial Position Sitting Pulse 67 Pulse Source Pulse Oximeter Pulse Oximetry (%) 98 Oxygen Delivery Method Room Air Intake Visit Reasons: f/u fibromyalgia Intake Note: Patient presents for Fibromyalgia follow up. Patient c/o pain on upper extremities especially LT side. Shot Polisher And Inspector Required: Yes Shot Polisher And Inspector Language: Certified Financial Planner Services: Shot Polisher And Inspector Present Shot Polisher And Inspector Name: Karlee [id number] Information Interpreted: non-clinical & clinical Allergies No Known Allergies Allergy (Verified 09/11/25 10:40) Medication List - Last Reconciled 09/11/25 by Kyleigh Burns MD baclofen 5 mg PO BEDTIME 90 days cabotegravir-rilpivirine 600 mg/3 mL- 900 mg/3 mL ER (Cabenuva) 6 mL IM [id number] cariprazine (Vraylar) 3 mg PO DAILY cariprazine (Vraylar) 3 mg PO QAM cholecalciferol (vitamin D3) (Vitamin D3) 10 mcg PO DAILY diclofenac sodium 1% (Arthritis Pain (diclofenac)) 4 grams topical QID lamotrigine 50 mg PO DAILY latanoprost 0.005% 1 drp ophthalmic (eye) BEDTIME levetiracetam 500 mg PO Q12H 30 days levetiracetam 1,000 mg PO Q12H magnesium oxide 400 mg PO BEDTIME 90 days memantine mg PO mirabegron ER (Myrbetriq) 50 mg PO DAILY pantoprazole 40 mg PO DAILY pregabalin 150 mg PO BID rosuvastatin 5 mg PO DAILY temazepam 30 mg PO BEDTIME PRN ubrogepant (Ubrelvy) 50 - 100 mg (0.5 - 1 x 100 mg) PO ONCE PRN 30 days MDD 2 tabs zolpidem (Ambien) 5 mg PO BEDTIME 1 month MDD 5mg HPI Comments Details: Patient is a 45 year old male with HIV on ARVs, seizure disorder, GERD, HLD, Migraine headaches and fibromyalgia here today for follow up Interval History: Patient last seen 03/11/25 with me. - On pregabalin 150mg daily - Patient states he feels a little better but still has pain particularly in his neck, low back and left knee - Also complaining of right medial wrist pain - Pregabalin increased to bid Today - On pregablin 150mg bid - Patient has been doing well on the increased dose - No side effects - Pain overall is controlled but now complaining of left sided neck pain that radiates to his left hand. It is worse when he is in a stationary position and is alleviated with movement - This pain is not new, he did visit pain management 1 year ago and had injections but this did not improve his pain. It worsened Rheumatologic History: Fibromyalgia Initial history by Dr. Bloom: This is a 42-year-old male with past medical history of HIV on HAART , fibromyalgia, chronic back pain, seizures who presents for evaluation of diffuse pain. The condition started since he was 15. He was evaluated by multiple doctors in [place] and received numerous medications. He was diagnosed with fibromyalgia. Could not tolerate gabapentin and Cymbalta. He was started on Lyrica around 2008 and this medication gave him significant relief. He has pain everywhere. Especially of his back, neck, shoulders, hands, feet. He feels like somebody is bowling him from his neck in his legs. Pain is worse with activity and also worse in the morning. Occasional swelling of his fingers. He was seen by pain management and received 2 injections in his spine which provided significant relief. Current Rheumatology Medication(s): Pregabalin 150mg bid [facility] Medical History Mood disorder Fibromyalgia, primary HIV (human immunodeficiency virus infection) Chronic back pain Seizure Left leg weakness Surgical History History of appendectomy History of carpal tunnel release of both wrists Family History Father Drug abuse and dependence Unknown Cancer of bone Maternal Grandmother Diabetes Heart attack Maternal Grandfather Stroke Social History Household Members: Family Housing: House Alcohol intake: never Patient Tobacco Use Status: Never used Tobacco Substance Use Type: Marijuana service: No Current occupational status: unemployed 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 Review of Systems Narrative Review of Systems Constitutional: Denies fever, chills, weight loss ENT: Denies vision changes, eye pain or eye redness, dental caries, dry mouth GI: Denies nausea, vomiting, diarrhea, abdominal pain, change in BM Pulm: Denies SOB, REVELES, hemoptysis, wheezing Cards: Denies chest pain, palpitations Skin: Denies Raynaud's, rash, nail changes, photosensitivity, RETAIL MERCHANDISING SPECIALIST: Denies headaches, weakness, paresthesias, recurrent falls MSK: as per HPI All other systems reviewed and are unremarkable except noted above Physical Exam Exam Exam: Vital signs reviewed Physical Examination CONSTITUITIONAL Patient alert and cooperative. Well appearing and in no apparent painful distress HEENT Conjunctiva and sclera clear. No lymphadenopathy. CHEST/RESPIRATORY SYSTEM Normal respiratory effort and able to speak in complete sentences. Clear to auscultation bilaterally. No crackles, rales, rhonchi, wheezes heard. CARDIAC SYSTEM Regular rate and rhythm. S1 and S2 heard no murmurs. Radial pulses intact bilaterally MSK Hands * Right Hand: Able to make a fist. No swelling or tenderness to palpation of the MCPs, PIPs or DIPs. No deformities noted. * Left Hand: Able to make a fist. No swelling or tenderness to palpation of the MCPs, PIPs or DIPs. No deformities noted. Wrists * Right Wrist: Full ROM to flexion and extension. No swelling or TTP * Left Wrist: Full ROM to flexion and extension. No swelling or TTP Elbows * Right Elbow: Full ROM. No swelling or TTP. No TTP of the medial epicondyle. No TTP of the lateral epicondyle * Left Elbow: Full ROM. No swelling or TTP. No TTP of the medial epicondyle. No TTP of the lateral epicondyle Shoulders * Right shoulder: No swelling noted. No TTP of the AC joint. No TTP of the subacromial bursa. No TTP of the posterior shoulder * Left shoulder: No swelling noted. No TTP of the AC joint. No TTP of the subacromial bursa. No TTP of the posterior shoulder Knees * Right knee: Full ROM. No swelling noted. No TTP of the knee joint line. No TTP of pes anserine bursa * Left knee: Full ROM. No swelling noted. No TTP of the knee joint line. No TTP of pes anserine bursa. Ankles * Right ankle: Good ankle dorsiflexion and plantar flexion. No swelling. No TTP of the ankle joint * Left ankle: Good ankle dorsiflexion and plantar flexion. No swelling. No TTP of the ankle joint Feet * Right foot: Negative squeeze test * Left foot: Negative squeeze test Tender points? * Tenderness to palpation of the bilateral trapezius, supraspinatus, anterior costochondral junctions, bilateral suboccipital muscle insertions SKIN No rashes Vital Signs: Last Vital Signs Pulse 67 09/11/25 10:41 BP 102/60 09/11/25 10:41 Pulse Ox 98 09/11/25 10:41 Oxygen Delivery Method Room Air 09/11/25 10:41 BMI result Body Mass Index 24.5 Results Reviewed Results Reviewed: Laboratory Tests 08/02/24 04:47 WBC 17.3 H RBC 4.12 L Hgb 13.7 L Hct 39.9 L Plt Count 257 D Sodium 139 Potassium 4.4 Chloride 104 Carbon Dioxide 27 BUN 20 H Creatinine 1.22 AST 18 ALT 15 Alkaline Phosphatase 73 C-Reactive Protein < 0.10 Immunology labs 08/09/22 11:20 Rheumatoid Factor < 15.0 Cycl Citrul Peptide IgG <16 CESARIO Screen NEGATIVE HLA-B27 Negative Assessment & Plan Assessment & Plan (1) Fibromyalgia, primary: Code(s): M79.7 - Fibromyalgia Category: Medical Plan: #Fibromyalgia Patient is a 45-year-old male with fibromyalgia here today for follow up. Doing okay on the increased pregabalin Given the perisstent radicular sx, will check and XR of the neck and an EMG Plan - Pregabalin 150mg bid - XR C spine - EMG left UE - RTC 6 months Plan I spent 30 minutes reviewing the record and labs, taking a history, examining the patient, discussing the treatment plan, ordering diagnostic work up and documenting in the medical record Orders: Orders NE electromyogram (EMG) Today M54.12 - Radiculopathy, cervical region, M54.2 - Cervicalgia XR cervical spine w flex/ext Today M54.2 - Cervicalgia NE nerve conduction velocity Today M54.12 - Radiculopathy, cervical region, M54.2 - Cervicalgia Medications: Refilled pregabalin 150 mg PO BID 60 caps 5RF M79.7 - Fibromyalgia Coding Level of Care Code Est Pt Level 4 (35491) Diagnoses Fibromyalgia, primary M79.7
[2025-09-11 10:41] VITALS: BP 102/60; PULSE 67; O2SAT 98; BMI 24.5
--- OUTSIDE RECORDS SUMMARY | 2025-09-11 11:46 | XMS_ITS | Encounter Summary ---
Author Organization [facility] Address [address] [place] [address] Care Team Providers Care Distribution Lineman Name Role Phone Child, Krunal TERAN Primary Care Provider [phone] Encounter Details Date Type Department Care Team (Late st Contact Info) Description 11/14/[address] [facility] - Main Lab [address] [facility] [place] [phone] Tom Hughes PA [address] [place] [phone] Benign essential microscopic hematuria Social History Tobacco [...] AM EST) Final Diagnosis A. Urine, Voided, ([id number]): Negative for high grade urothelial carcinoma. Results of [employer] fluorescence in situ hybridization (FISH) testing: CEP3: Normal CEP7: Normal CEP17: Normal LSI 9p21: Normal Interpretation: Normal profile Controls stained appropriately. Note: The results are intended as a screening device and should be interpreted in association with other clinical and pathological findings. 11/26/2024 8:48 AM EST [facility] Clinical Information Other microscopic hematuria R31.29 Benign essential microscopic hematuria R31.1 Cytology/Urine FISH (now) 11/26/2024 8:48 AM [facility] Gross Description A. Urine, Voided, ([id number]): Received 1 TP (CYTO) 1 TP (FISH) 11/26/2024 8:48 AM [facility] Disclaimer Unless otherwise specified, all tissue is 10% NB formalin fixed and paraffin embedded. Technical pathology services provided by [facility] at [address] [place] [address] [address], [place] [address] (CLIA #[id number]/Blank Trevino MD, Tube Turner) 11/26/2024 8:48 AM [facility] Tissue Urine specimen from urethra / Unknown 11/05/2024 11/14/2024 3:55 PM EST us Tom TERAN LAB PATHOLOGY ORDERABLES Final Result [facility] [address] [place] [address], documented in this encounter Visit Diagnoses Diagnosis Benign essential microscopic hematuria documented in this encounter Care Teams Distribution Lineman Relationship Specialty Start Date End Date Child, JEFFRY Hector [address] [place] [address] PCP - General 02/20/24 documented as of this encounter
--- OUTSIDE RECORDS SUMMARY | 2025-09-11 11:46 | XMS_ITS | Clinical Summary ---
Author Organization [facility] Address [address] [place] [address] Care Team Providers Care Final Dressing Cutter Name Role Phone Nori Bateman PA-C Primary Care Provider [phone] Source Comments PLEASE NOTE, if this patient [...] ACOSTARSE *HOLD FOR LOOSE STOOLS* 023 Active cabotegravir-ri lpivirine (CABENUVA) 600 mg/3 mL- 900 mg/3 mL spERIndications :HIV disease Inject 0.02 mL into the muscle 56 DAYS Inject 600mg dose and 900mg dose IM Q 2 months. 1 Each 6 Active acetaminophen (TYLENOL) 325 mg tabletIndicatio ns:Perforated appendix TAKE 2 TABLETS BY MOUTH EVERY 6 HOURS NEEDED FOR PAIN. 30 Tablet Active GAVILAX 17 gram/dose powderIndicatio ns:Constipation , unspecified constipation type TAKE 17 GRAMS MIXED IN WATER POR VIA ORAL ONCE DAILY 510 g 025 Active lamoTRIgine (LAMICTAL) 25 mg tablet Take 25 mg by mouth once daily Active VRAYLAR 1.5 mg cap Take 1 Capsule by mouth daily Active memantine (NAMENDA) 10 mg tablet Take 10 mg by mouth once daily Active MYRBETRIQ 50 mg Tb24 Take 50 mg by mouth daily 025 Active lidocaine (LIDODERM) 5 % patchIndication s:Chronic bilateral low back pain without sciatica Place 1 Patch onto the skin daily Apply 1 patch to the affected area for a maximum of 12 hours, followed by removal for 12 hours. 30 Patch Active predniSONE 50 mg tabletIndicatio ns:Subacute cough,Hypoxia Take 1 Tablet by mouth once daily. 5 Tablet 025 Active azithromycin (ZITHROMAX) 250 mg tabletIndicatio ns:Subacute cough,Hypoxia Take 2 tab PO today. Then take 1 tab PO QD x4d. 6 Tablet 025 Active rosuvastatin (CRESTOR) 5 mg tablet TOME 1 TABLETA POR VIA ORAL TODOS LOS OLVERA. 90 Tablet 2 025 Active pantoprazole (PROTONIX) 40 mg EC tabletIndicatio ns:Gastroesopha geal reflux disease without esophagitis TOME 1 TABLETA POR VIA ORAL TODOS LOS OLVERA ANTES DEL DESAYUNO 90 Tablet 025 Active omeprazole (PRILOSEC) [address] capsuleIndicati ons:Gastroesoph ageal reflux disease without esophagitis Take 1 Capsule by mouth every morning before breakfast 90 Capsule 024 2024 Discontinued(E xchange, Therapeutic) pantoprazole (PROTONIX) 40 mg EC tabletIndicatio ns:Gastroesopha geal reflux disease without esophagitis TOME 1 TABLETA POR VIA ORAL TODOS [place] OL[place] ANTES DEL DESAYUNO 90 Tablet 025 2024 Discontinued Active Problems [...] medication. Discussed with Dr. Camarena Blue pager [phone] Objective/Physical Exam on Day of Discharge Vitals [...] of syphilis 01/17/2022 Overview (01/17/2022): Tx in [place] in July 2021. One injection PCN G. Depression with anxiety 09/07/2021 Mixed hyperlipidemia 09/07/2021 HIV disease 10/06/2013 Overview (08/16/2021): PT reports diagnosis Bilateral carpal tunnel syndrome Chronic back pain Overview (09/10/2021): [facility] for [facility] who presented [...] Description 07/21/2025 9:20 AM EDT Office Visit [address] [phone] Milli Henderson RN from Last 3 Months Immunizations Immunization Administration Dates Next Due Flu, Preservative Free 08/25/2023,08/01/2022,10/2021 Influenza (FLUBLOK),recombinant,injectable,preservati ve Free 11/15/2024 Influenza, Whole 07/16/2009 MENINGOCOCCAL MCV4P (MENACTRA) 03/24/2022,2021 Moderna COVID-19 Vaccine, re d cap blue label, 12+ Primary Series 07/08/2021,03/03/2021,02/03/2021 PNEUMOCOCCAL CONJUGATE PCV 13 01/24/2022 PNEUMOCOCCAL CONJUGATE PCV 20 (Prevnar 20) 04/19 Pfizer COVID-19 (Comirnaty), Mrna, Lnp-s, Pf, Monroe-sucrose, 30 Mcg/0.3 Ml, 12yr+ 08/25/2023 Pfizer-BioNTLVL6 COVID-19 Vac cine Bivalent, (FERNANDEZ PFIZER-BIONTECH COVID-19 VACCINE BIVALENT, (FERNANDEZ CAP 08/01/2022 Smallpox Mpox (JYNNEOS) Vaccine 08/02/2022,07/05 TDAP 11/26/2021 ZOSTER VACCINE, RECOMBINANT (SHINGRIX) 11/07/202 3,10/05/2022 Family History Medical History Relation Name [...] Description 09/18/2025 9:20 AM EST Office Visit [address] [address] Milli Henderson, RN [address] [place] [address] 11/10/2025 8:40 AM EST Office Visit [address] [address] Milli Henderson, RN [address] [place] [address] 01/05/2026 8:40 AM EST Office Visit [address] [address] Milli Henderson, RN [address] [place] [address] 03/02/2026 8:40 AM EDT Office Visit [address] [address] Milli Henderson, RN [address] [place] [address] 04/27/2026 8:40 AM EDT Office Visit [address] [address] Milli Henderson, RN [address] [place] [address] 06/22/2026 8:40 AM EDT Office Visit [address] [address] Milli Henderson, RN [address] [place] [address] 08/18/2026 8:40 AM EDT Office Visit [address] [address] Milli Henderson RN [address] [place] [address] 10/12/2026 8:40 AM EST Office Visit [address] [address] Milli Henderson RN [address] [place] [address] Health Maintenance Due Date Last Done Comments Medicare Annual Wellness Visit [address] Colonography 2024 Colonoscopy 2024 Colorectal Cancer Screening 2024 FIT/gFOBT 2024 Fecal DNA 2024 Flexible Sigmoidoscopy 2024 Depression Monitoring 05/14/2025 02/12/2025 , 08/30/2024, 08/30/2023, Additional history exists [id number] ( season) 2025 08/25/2023, 08/01/2022, 07/08/2021, Additional [...] (2 - Td or Tdap) 11/26/2031 11/26/2021 Imm-RSV (adult) (1 - 1-dose 75+ series) 2054 Hepatitis B Screening Completed 08/17/2021 Imm-Mpox (formerly [...] Procedure Name Priority Date/Time Associated Diagnosis Comments PROCEDURE SCANNED DOCUMENT 08/05/2025 3:00 AM EDT REFERRAL SCANNED DOCUMENT 07/18/2025 3:00 AM EDT REFERRAL SCANNED DOCUMENT 07/18/2025 3:00 AM EDT US THYROID Routine 06/13/2025 3:00 AM EDT Macrocytosis Hyperthyroid COMPREHENSIVE METABOLIC PANEL Routine 05/02/2025 10:54 AM EDT Subacute cough Hypoxia RPR (MONITOR) W/REFL TITER Routine 05/02/2025 10:52 AM EDT Possible exposure to STI HEPATITIS C AB W/RFLX HCV RNA, QT, RT PCR Routine 03/28/2025 9:30 AM EDT HIV disease ([facility]) LIPID PANEL Routine 08/30/2024 2:40 PM EDT Routine general medical examination at a health care facility HEPATITIS B SURF ANTIBODY HBSAB Routine 08/17/2021 12:15 PM EDT Routine adult health maintenance from Last 3 Months or Most Recently Relevant to Health Maintenance Results * PROCEDURE SCANNED DOCUMENT (08/05/2025 3:00 AM EDT) 08/05/2025 3:00 AM EDT us Rosimar Aguilera PA-C SCAN PROCEDURES Final Result * REFERRAL SCANNED DOCUMENT (07/18/2025 3:00 AM EDT) Only the most recent of2 resultswithin the time period is included. 07/18/2025 3:00 AM EDT us Rosimar Aguilera PA-C SCAN REFERRAL Final Result * US THYROID (06/13/2025 3:00 AM EDT) 06/13/2025 3:00 AM EDT us Ros Trujillo PA-C IMG ULTRASOUND Final Result [facility] Corporate Office [address], [address] [place] [address], * (ABNORMAL) COMPREHENSIVE METABOLIC PANEL Routine (05/02/2025 10:54 AM EDT) GLUCOSE 101 65 - 139 mg/dL [facility] Comment: Non-fasting reference interval UREA NITROGEN (BUN) 16 7 - 25 mg/dL [facility] CREATININE (blood) 1.11 0.60 - 1.29 mg/dL [facility] EGFR 83 > OR = 60 mL/min/1. 73m2 [facility] BUN/CREATININE RATIO SEE NOTE: [facility] Comment: Not Reported: BUN and Creatinine are within reference range. SODIUM 134(L) 135 - 146 mmol/L [facility] POTASSIUM 4.1 3.5 - 5.3 mmol/L [facility] CHLORIDE 101 98 - 110 mmol/L [facility] CARBON DIOXIDE 26 20 - 32 mmol/L [facility] CALCIUM 9.4 8.6 - 10.3 mg/dL [email or web address] PROTEIN, TOTAL 7.3 6.1 - 8.1 g/dL [email or web address] ALBUMIN 4.8 3.6 - 5.1 g/dL [email or web address] GLOBULIN 2.5 1.9 - 3.7 g/dL (calc) [email or web address] ALBUMIN/GLOBULI N RATIO 1.9 1.0 - 2.5 (calc) [email or web address] BILIRUBIN, TOTAL 1.3(H) 0.2 - 1.2 mg/dL [email or web address] ALKALINE PHOSPHATASE 67 36 - 130 U/L [email or web address] AST 16 10 - 40 U/L [email or web address] ALT 11 9 - 46 U/L [email or web address] Blood Blood / Unknown 05/02/2025 1 0:54 AM EDT 05/02/2025 10:55 AM EDT Narrative [facility] - 05/03/2025 10:57 AM EDT FASTING:NO Krunal Rodriguez PA-C LAB - BLOOD DRAW Final Result Performing Organization Address [facility] de Phone Number [email or web address] [address] [address], [email or web address] [address] [address] * (ABNORMAL) RPR (MONITOR) W/REFL TITER Routine (05/02/2025 10:52 AM EDT) RPR (MONITOR) W/REFL TITER REACTIVE( A) NON-REACT EARL [email or web address] Comment: The RPR is a jjk-nsvvwxcxrb-prsrjjet test; therefore, a treponemal-specific confirmatory test should be performed unless prior syphilis infection has been documented for this patient. Blood Blood / Unknown 05/02/2025 1 0:52 AM EDT 05/02/2025 10:53 AM EDT Shauna [facility] - 05/06/2025 2:11 PM EDT FASTING:NO us Ros Trujillo PA-C LAB - BLOOD DRAW Edited Resu lt - Final Performing Organization Address City/[facility]/ZIP Co de Phone Number [facility] [address] [address], [email or web address] [address] [address] * HEPATITIS C AB W/RFLX HCV RNA, QT, RT PCR Routine (03/28/2025 9:30 AM EDT) Pathologist [facility] HEPATITIS C ANTIBODY NON-REACT EARL NON-REACT EARL [email or web address] Comment: HCV antibody was non-reactive. There is no laboratory evidence of HCV infection. In most cases, no further action is required. However, if recent HCV exposure is suspected, a test for HCV RNA (test code 96629) is suggested. For additional information please refer to http://RocketHub.Ads-Fi/faq/CNW42n9 (This link is being provided for informational/ educational purposes only.) Blood Blood / Unknown 03/28/2025 9 :30 AM EDT 03/28/2025 9:31 AM EDT Ros Trujillo PA-C LAB - BLOOD DRAW Edited Resu lt - Final [email or web address] [address] [address], [email or web address] [address] [address] * (ABNORMAL) LIPID PANEL (08/30/2024 2:40 PM EDT) [facility] CHOLESTEROL, TOTAL 203(H) <200 mg/dL [email or web address] HDL CHOLESTEROL 37(L) > OR = 40 mg/dL [email or web address] TRIGLYCERIDES 128 <150 mg/dL [email or web address] LDL-CHOLESTEROL 141(H) 99 mg/dL (calc) [email or web address] Comment: Reference range: <100 Desirable range <100 mg/dL for primary prevention; <70 mg/dL for patients with CHD or diabetic patients with > or = 2 CHD risk factors. LDL-C is now calculated using the Angel calculation, which is a validated novel method providing better accuracy than the Friedewald equation in the estimation of LDL-C. Kyle HENNING et al. LAURA. 2013;310(19): 5113-7269 (http://education.Betabrand.FFWD/faq/VKP899) CHOL/HDLC RATIO 5.5(H) <5.0 (calc) [facility] NON-HDL CHOLESTEROL 166(H) <130 mg/dL (calc) [facility] Comment: For patients with diabetes plus 1 major ASCVD risk factor, treating to a non-HDL-C goal of <100 mg/dL (LDL-C of <70 mg/dL) is considered a therapeutic option. Blood Blood / Unknown 08/30/2024 2 :40 PM EDT 08/30/2024 2:40 PM EDT Narrative [facility] - 08/31/2024 5:40 AM EDT FASTING:NO Karlo Cleveland MD LAB - BLOOD DRAW Final Result Performing Organization Address City/[facility]/ZIP Co de Phone Number [facility] [address] [place] [address], [facility] [address] [address] * (ABNORMAL) HEPATITIS B SURFACE ANTIBODY (HBSAB) QUAL (08/17/2021 12:15 PM EDT) HEPATITIS B SURFACE ANTIBODY QL REACTIVE( A) NON-REACT EARL [facility] Blood Blood / Unknown 08/17/2021 1 2:15 PM EDT 08/17/2021 12:16 PM EDT Narrative [facility] - 08/20/2021 6:17 PM EDT PATIENT UNABLE TO VOID; ADVISED TO RETURN FOR COLLECTION. Alberto Caballero MD LAB - BLOOD DRAW George tracy Result - Final Performing Organization Address [facility]/ZIP Co de Phone Number [facility] [address] [place] [address], [employer] [address] [place] [address],[place] [address] from Last 3 Months or Most Recently Relevant to Health Maintenance Insurance [place] MEDICAID AETNA MEDICARE Care Teams Final Dressing Cutter Relationship Specialty Start Date End Date Nori Bateman PA-C [address] [place] [address] PCP - General Internal Medicine 01/26/23
--- OUTSIDE RECORDS SUMMARY | 2025-09-11 11:46 | XMS_ITS | Clinical Summary ---
Author Organization [address] [place] [address] [place] [phone] Phone Care Team Providers Care Foundry Metallurgist Name Role Phone Child, Krunal TERAN Primary Care Provider [phone] Allergies No known active allergies Medications ARIPiprazole [...] immunodefi ciency virus (HIV) disease ([facility]) Social History Tobacco Use Types [...] 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 ([facility] V24, [facility] V28) from Last 3 Months or Most Recently Relevant to Health Maintenance Results * Lipid panel with reflex to direct LDL (04/25/2025 9:08 AM EDT) Cholesterol 147 0 - 200 mg/dL LAB CHEMISTRY METHOD 04/25/2025 10:43 AM [facility] Triglycerides 143 0 - 150 mg/dL LAB CHEMISTRY METHOD 04/25/2025 10:43 AM [facility] HDL 43 >=40 mg/dL LAB CHEMISTRY METHOD 04/25/2025 10:43 AM [facility] LDL Calculated 75 0 - 100 mg/dL LAB CHEMISTRY METHOD 04/25/2025 10:43 AM [facility] VLDL Cholesterol Arden 28.6 mg/dL LAB CHEMISTRY METHOD 04/25/2025 10:43 AM [facility] Non HDL Chol. (LDL+VLDL) 104 <145 mg/dL LAB CHEMISTRY METHOD 04/25/2025 10:43 AM [facility] Chol/HDL Ratio 3.4 0.0 - 4.4 LAB CHEMISTRY METHOD 04/25/2025 10:43 AM EDT [facility] Blood Venous blood specimen / Unknown Venipuncture / Unknown 04/25/2025 9:08 AM EDT 04/25/2025 9:58 AM EDT us Gildardo Rodriguez MD LAB BLOOD ORDERABLES Final Re sult [facility] ([facility] [address] [place] [address], [place] [phone] from Last 3 Months or Most Recently Relevant to Health Maintenance Insurance MEDICA[place] - [place] AETNA MEDICARE ADVANTAGE Care Teams Foundry Metallurgist Relationship Specialty Start Date End Date Child, JEFFRY Hector [address] [place] [address] PCP - General 02/20/24
== END 2025-09-11 11:10 | disposition home or self-care (01) ==
LOC: HO.RHES 10:04
PROVIDERS: PCP Physician Assistant Medical; Visit Provider Student in an Organized Health Care Education/Training Program
DX: M79.7 Fibromyalgia (principal)
CPT/HCPCS: 99214

== ENCOUNTER 2025-09-11 10:03 | Outpatient (REF) | payer MEDICARE, MEDICAID, SELFPAY ==
--- NOTE | ~2025-09-11 | XR_ITS ---
EXAMINATION: XR CERVICAL SPINE CLINICAL INFORMATION: M54.2 - Cervicalgia COMPARISON: None available. TECHNIQUE: AP, AP odontoid, bilateral oblique, and lateral: Flexion, neutral, and extension view x-rays of the cortical spine. FINDINGS: There is straightening of the cervical lordosis. There is no prevertebral soft tissue swelling. C2-3: Unremarkable C3-4: There is grade 1 retrolisthesis and mild disc space narrowing. There is moderate left and mild right foraminal narrowing C4-5: There is mild disc space narrowing and posterior osteophyte and facet sclerosis with marginal osteophytes. There is mild bilateral foraminal narrowing. C5-6: There is grade 1 anterolisthesis C6-7: There is moderate disc space narrowing with endplate osteophytes. There is subtle retrolisthesis. C7-T1: Unremarkable. No instability is demonstrated during flexion and extension. XR/XR cervical spine w flex/ext IMPRESSION: There is straightening of the expected cervical lordosis. This can be idiopathic, but can also be related to degenerative change, muscle spasm, or posterior soft tissue injury. Degenerative changes are most advanced at C3-4 and C4-5. Electronically signed by: Cheikh Burris MD 09/11/2025 01:40 PM EST
== END 2025-09-11 10:04 | disposition home or self-care (01) ==
LOC: HO.XRAY 10:03
PROVIDERS: PCP Physician Assistant; Visit Provider Student in an Organized Health Care Education/Training Program
DX: M79.7 Fibromyalgia (principal); M54.2 Cervicalgia; Z79.899 Other long term (current) drug therapy
CPT/HCPCS: 72052; 99212

== ENCOUNTER → 2025-09-11 13:14 | Outpatient (BNV) | payer MEDICARE, MEDICAID, SELFPAY | PROVIDERS: PCP Physician Assistant; Visit Provider Radiology Diagnostic Radiology | DX: M54.2 Cervicalgia (principal) | CPT/HCPCS: 72052 ==

== ENCOUNTER 2025-10-01 10:20 | Outpatient (REF) | payer MEDICARE, MEDICAID, SELFPAY ==
--- NOTE | 2025-10-01 10:22 | EMG_ITS ---
Chief complaint: Left arm pain Reason for referral: Evaluate for radiculopathy Referred by: Dr. Burns Procedure done: Left upper extremity NCS/EMG Precautions and/or limitations: None The limb temperature was monitored continuously and remained between 32-36 degrees C during the performance of the NCS. Nerve Conduction Studies Anti Sensory Summary Table ?Stim Site NR Onset (ms) Norm Onset (ms) Peak (ms) Norm Peak (ms) O-P Amp (?V) Norm O-P Amp Site1 Site2 Delta-0 (ms) Dist (cm) Tip (m/s) Norm Tip (m/s) Left Median Anti Sensory (2nd Digit) Wrist ? 2.7 3.5 <3.6 46.0 >10 Wrist 2nd Digit 2.7 14.0 52 Left Ulnar Anti Sensory (5th Digit) Wrist ? 2.3 3.3 <3.7 46.2 >15.0 Wrist 5th Digit 2.3 14.0 61 Motor Summary Table ?Stim Site NR Onset (ms) Norm Onset (ms) O-P Amp (mV) Norm O-P Amp iAmp (mV) Amp (1st) (%) Site1 Site2 Delta-0 (ms) Dist (cm) Tip (m/s) Norm Tip (m/s) Left Median Motor (Abd Poll Brev) Wrist ? 3.9 <3.9 12.3 >4.5 15.2 100.0 Elbow Wrist 4.0 20.5 51 >45 Elbow ? 7.9 10.6 13.2 86.2 Left Ulnar Motor (Abd Dig Minimi) Wrist ? 2.8 <3.0 7.9 >5 9.2 100.0 B Elbow Wrist 3.2 18.0 56 >45 B Elbow ? 6.0 8.2 9.7 103.8 A Elbow B Elbow 1.7 10.0 59 >45 A Elbow ? 7.7 8.9 10.3 112.7 EMG ?Side Muscle Nerve Root Ins Act Fibs Psw Amp Dur Poly Recrt Int Pat Comment Left 1stDorInt Ulnar C8-T1 Nml Nml Nml Nml Nml 0 Nml Complete Left FlexCarRad Median C6-7 Nml Nml Nml Nml Nml 0 Nml Complete Left Biceps Musculocut C5-6 Nml Nml Nml Nml Nml 0 Nml Complete Left Triceps Radial C6-7-8 Nml Nml Nml Nml Nml 0 Nml Complete Left Deltoid Axillary C5-6 Nml Nml Nml Nml Nml 0 Nml Complete FINDINGS: All motor and sensory nerves tested showed normal latencies, amplitudes and conduction velocities. Concentric needle EMG was performed in selected muscles of the left upper extremity. Study did not reveal signs of electric abnormalities as shown in the table above. IMPRESSION: 1. This is a normal study. 2. There is no electrodiagnostic evidence for median neuropathy, ulnar neuropathy, brachial plexopathy, or cervical radiculopathy. Thank you for your kind referral. Julia Triana MD, NIKA Board Certified, [place] Board [employer] and Rehabilitation (ABPMR) Board Certified, [place] Board of Electrodiagnostic Medicine (ABEM) CODIN 15090 x 1 extremity MTDD
--- OUTSIDE RECORDS SUMMARY | 2025-10-01 12:11 | XMS_ITS | Clinical Summary ---
Author Organization [address] [place] [address] [place] [phone] Phone Care Team Providers Care Hydropulper Operator Name Role Phone Child, Krunal TERAN Primary Care Provider [phone] Allergies No known active allergies Medications ARIPiprazole [...] V28) DX:Human immunodefi ciency virus (HIV) disease ([facility]) Social History Tobacco Use Types Packs/Day Years [...] 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 ([facility] V24, [facility] V28) from Last 3 Months or Most Recently Relevant to Health Maintenance Results * Lipid panel with reflex to direct LDL (04/25/2025 9:08 AM EDT) Cholesterol 147 0 - 200 mg/dL LAB CHEMISTRY METHOD 04/25/2025 10:43 AM [facility] Triglycerides 143 0 - 150 mg/dL LAB CHEMISTRY METHOD 04/25/2025 10:43 AM [facility] HDL 43 >=40 mg/dL LAB CHEMISTRY METHOD 04/25/2025 10:43 AM [facility] LDL Calculated 75 0 - 100 mg/dL LAB CHEMISTRY METHOD 04/25/2025 10:43 AM [facility] VLDL Cholesterol Arden 28.6 mg/dL LAB CHEMISTRY METHOD 04/25/2025 10:43 AM [facility] Non HDL Chol. (LDL+VLDL) 104 <145 mg/dL LAB CHEMISTRY METHOD 04/25/2025 10:43 AM [facility] Chol/HDL Ratio 3.4 0.0 - 4.4 LAB CHEMISTRY METHOD 04/25/2025 10:43 AM EDT [facility] Blood Venous blood specimen / Unknown Venipuncture / Unknown 04/25/2025 9:08 AM EDT 04/25/2025 9:58 AM EDT us Gildardo Rodriguez MD LAB BLOOD ORDERABLES Final Re sult [facility] ([facility] [address] [place] [address], [place] [phone] from Last 3 Months or Most Recently Relevant to Health Maintenance Insurance [place]ICA[place] - [place] AETNA MEDICARE ADVANTAGE Care Teams Hydropulper Operator Relationship Specialty Start Date End Date Child, JEFFRY Hector [address] [place] [address] PCP - General 02/20/24
--- OUTSIDE RECORDS SUMMARY | 2025-10-01 12:11 | XMS_ITS | Encounter Summary ---
Author Organization House Party Address [address] [place] [address] Care Team Providers Care Grievance And Appeals Specialist Name Role Phone Child, Krunal TERAN Primary Care Provider [phone] Encounter Details Date Type Department Care Team (Late st Contact Info) Description 11/14/2024 Lab Requisition [facility] - Main Lab [address] [facility] [place] [phone] Tom Hughes PA [address] [place] [phone] Benign essential microscopic hematuria Social History Tobacco [...] AM EST) Final Diagnosis A. Urine, Voided, ([id number]): Negative for high grade urothelial carcinoma. Results of UroVysion fluorescence in situ hybridization (FISH) testing: CEP3: Normal CEP7: Normal CEP17: Normal LSI 9p21: Normal Interpretation: Normal profile Controls stained appropriately. Note: The results are intended as a screening device and should be interpreted in association with other clinical and pathological findings. 11/26/2024 8:48 AM EST [facility] Clinical Information Other microscopic hematuria R31.29 Benign essential microscopic hematuria R31.1 Cytology/Urine FISH (now) 11/26/2024 8:48 AM [facility] Gross Description A. Urine, Voided, ([id number]): Received 1 TP (CYTO) 1 TP (FISH) 11/26/2024 8:48 AM [facility] Disclaimer Unless otherwise specified, all tissue is 10% NB formalin fixed and paraffin embedded. Technical pathology services provided by [facility] at [address] [place] [address] [address], [place] [address] (CLIA #[id number]/Blank Trevino MD, Campus Dean) 11/26/2024 8:48 AM [facility] Tissue Urine specimen from urethra / Unknown 11/05/2024 11/14/2024 3:55 PM EST us Tom TERAN LAB PATHOLOGY ORDERABLES Final Result [facility] [address] [place] [address], documented in this encounter Visit Diagnoses Diagnosis Benign essential microscopic hematuria documented in this encounter Care Teams Grievance And Appeals Specialist Relationship Specialty Start Date End Date Child, JEFFRY Hector [address] [place] [address] PCP - General 02/20/24 documented as of this encounter
== END 2025-10-01 10:21 | disposition home or self-care (01) ==
LOC: HO.NEURO 10:20
PROVIDERS: PCP Physician Assistant; Visit Provider Student in an Organized Health Care Education/Training Program
DX: M54.2 Cervicalgia (principal); M54.12 Radiculopathy, cervical region
CPT/HCPCS: 95886; 95909

== ENCOUNTER → 2025-10-01 10:22 | Outpatient (BNV) | payer MEDICARE, MEDICAID, SELFPAY | PROVIDERS: PCP Physician Assistant; Visit Provider Physical Medicine & Rehabilitation | DX: M54.2 Cervicalgia (principal) | CPT/HCPCS: 95886; 95908 ==

== ENCOUNTER 2025-10-20 07:57 | Outpatient (AMB) | payer MEDICAID, SELFPAY ==
--- NOTE | 2025-10-20 07:58 | MHC.OFFVIS ---
Vital Signs 10/20/25 07:59 Height 5 ft 2 in Weight 137 lb 2 oz BMI 25.1 BP 110/72 Blood Pressure Location Rt brachial Position Sitting Pulse 68 Pulse Source Pulse Oximeter Pulse Oximetry (%) 96 Oxygen Delivery Method Room Air Intake Visit Reasons: 6m w MD Intake Note: Follow up Seizure like activity, Migraine, Excessive daytime sleepiness, Sleep difficulties, Positive RPR test, Cervicalgia, Insomnia Aquaculture Director Required: Yes Aquaculture Director Services: Aquaculture Director Present Aquaculture Director Name: Josselyn ID: [id number] Accompanied by: Spouse Allergies No Known Allergies Allergy (Verified 10/20/25 07:59) HPI Comments Details: 45 year old Cymraes speaking male presents for seizure like activity and chronic migraines. 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 Keppra 1500mg bid Headaches have been controlled. HE DOES NOT DRIVE. He sees psychiatrist for his mood disorder.Psychiatrist did not want him to take ambien for his insomnia.He sees a therapist every 2 weeks .he reports difficulty falling asleep due to pain. Memory is OK . History form last visit 08/30-He denies seizure like activity since past 2 days and he has been taking Keppra 1500mg BID. He says his mind goes blank, he loses time and consciousness for 5-10 seconds, his vision goes blurry sees flashing lights and this has been continuous for months, his [facility] added Lamotrigine 50mg po daily. He denies drooling, biting tongue, eyes rolling into the back of his head, urinary loss, shaking of the body. This is the same prodrome which signals onset of his migraines and he is taking Ubrelvy 50-100mg and it is working well decreased frequency and severity, though still has 8 migraines per month and 2/week.The headaches are less intense, 1-2x week and last 2-3 hours. Always begin with l. sided temporal throbbing and migrates to the r. side, with photo/phono-phobia, floater and flashing lights, triggers are smells. He denies nausea, denies vomiting. Has vertigo, dizziness and gait instability. He has insomnia, and day time fatigue, he takes trazadone 30mg po for sleep when he paces at night and can not fall asleep.He does not sleep through the night, he tosses and turns, with multiple arousals, and wakes up feeling fatigued with pain daily. He is seeing his therapist every other week for medication adjustment,and due to mood fluctuations.He continues to have pain in his neck with rotation of the neck, and chronic low back. He is followed by [facility] and stopped PT as it was aggravating cervicalgia and triggering onset of headaches.He has fibromyalgia now taking 150mg Lyrica BID with Baclofen 5mg po daily for chronic spasms and joint pain. He walks 3 days a week for 15-30min and does not want to exert himself as he feels depleted in energy reserves.He is being followed by oncologist for HIV and low CD 4 counts. Memory is poor, he forgets to take his medication, forgets his appts, forgets to complete tasks, or will start multiple tasks and gets distracted then confused as to what he is doing. He must go places with a freind, if he does not he will get lost. He does not drive. Diet is poor and he lost 3 more pounds now 133, eating smaller meals now. GERD is managed with pantoprazole 40mg qd. He drinks plenty of water 2-3 bottles of 16- 20 ounces and is staying hydrated. He does not smoke MJ for chronic pain. He does not drink alcohol anymore. [facility] Medical History Mood disorder Fibromyalgia, primary HIV (human immunodeficiency virus infection) Chronic back pain Seizure Left leg weakness Surgical History History of appendectomy History of carpal tunnel release of both wrists Family History Father Drug abuse and dependence Unknown Cancer of bone Maternal Grandmother Diabetes Heart attack Maternal Grandfather Stroke Social History Household Members: Family Housing: House Alcohol intake: never Patient Tobacco Use Status: Never used Tobacco Substance Use Type: Marijuana service: No Current occupational status: unemployed 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 Physical Exam Vital Signs: Last Vital Signs Pulse 68 10/20/25 07:59 BP 110/72 10/20/25 07:59 Pulse Ox 96 10/20/25 07:59 Oxygen Delivery Method Room Air 10/20/25 07:59 BMI result Body Mass Index 25.1 Const General: cooperative, healthy appearing, comfortable and no acute distress Nutritional Appearance: average body habitus Orientation/consciousness: patient oriented x3 Neuro General: patient oriented x3, gait normal, tone normal, moves all extremities and no focal motor deficits Cranial nerves: Yes Bilaterally intact EOM present, Yes Normal facial strength present, Yes Midline tongue present, Yes Symmetric palate elevation present and Yes Ability to bilaterally elevate shoulders present Cognition (Neuro): normal cognition Gait exam (Neuro): Antalgic gait present Motor exam (neuro): 5/5 motor strength present throughout Assessment & Plan Assessment & Plan (1) Seizure: Comment: complex absence seizures- dx 2004 Code(s): R56.9 - Unspecified convulsions Category: Medical (2) Migraine without aura: Code(s): G43.009 - Migraine without aura, not intractable, without status migrainosus Category: Medical Qualifiers: Status migrainosus presence: without status migrainosus Intractability: intractable Qualified Code(s): G43.019 - Migraine without aura, intractable, without status migrainosus (3) Sleep difficulties: Comment: multifactorial Code(s): G47.9 - Sleep disorder, unspecified Category: Medical Plan Continue Keppra 1500mg bid- Pregabalin 150mg bid Continue Lamotrigine 50mg qam per psychiatrist. Continue Magnesium 400mg po at bedtime. Continue B6 200mg po at bedtime. No Driving Medications: Changed From levetiracetam 1,000 mg PO Q12H To levetiracetam with 500mg levetiracetam for a total of 1500mg bid 1,000 mg PO Q12H 60 tabs 6RF Refilled levetiracetam take w/ 1000mg bid to total 1500mg/dose 500 mg PO Q12H 60 tabs 6RF 30 days Discontinued zolpidem (Ambien) Discontinued Reason: Doctor's Order 5 mg PO BEDTIME 1 month 30 tabs 0RF insomnia MDD 5mg F51.03 - Paradoxical insomnia, G47.9 - Sleep disorder, unspecified Coding Level of Care Code Est Pt Level 4 (19086) Add On Problem Visit Only Diagnoses Seizure R56.9 Intractable migraine without aura and without status migrainosus G43.019 Status migrainosus presence: without status migrainosus Intractability: intractable Sleep difficulties G47.9
[2025-10-20 07:59] VITALS: BP 110/72; PULSE 68; O2SAT 96; BMI 25.1
--- OUTSIDE RECORDS SUMMARY | 2025-10-20 08:08 | XMS_ITS | Encounter Summary ---
Author Organization [employer] Address [address] [place] [address] Care Team Providers Care Newsstand Vendor Name Role Phone Child, Krunal TERAN Primary Care Provider [phone] Encounter Details Date Type Department Care Team (Late st Contact Info) Description 11/14/2024 Lab Requisition [facility] - Main Lab [address] [facility] [place] [phone] Tom Hughes PA [address] [place] [phone] Benign essential microscopic hematuria Social History Tobacco [...] AM EST) Final Diagnosis A. Urine, Voided, ([id number]): Negative for high grade urothelial carcinoma. Results of UroVysion fluorescence in situ hybridization (FISH) testing: CEP3: Normal CEP7: Normal CEP17: Normal LSI 9p21: Normal Interpretation: Normal profile Controls stained appropriately. Note: The results are intended as a screening device and should be interpreted in association with other clinical and pathological findings. 11/26/2024 8:48 AM EST [facility] at 0848 EST Clinical Information Other microscopic hematuria R31.29 Benign essential microscopic hematuria R31.1 Cytology/Urine FISH (now) 11/26/2024 8:48 AM [facility] Gross Description A. Urine, Voided, ([id number]): Received 1 TP (CYTO) 1 TP (FISH) 11/26/2024 8:48 AM [facility] Disclaimer Unless otherwise specified, all tissue is 10% NB formalin fixed and paraffin embedded. Technical pathology services provided by [facility] at [address] [place] [address] [address], [place] [address] (CLIA #[id number]/Blank Trevino MD, Mortgage Coordinator) 11/26/2024 8:48 AM [facility] Tissue Urine specimen from urethra / Unknown 11/05/2024 11/14/2024 3:55 PM EST us Tom TERAN LAB PATHOLOGY ORDERABLES Final Result [facility] [address] [place] [address], documented in this encounter Visit Diagnoses Diagnosis Benign essential microscopic hematuria documented in this encounter Care Teams Newsstand Vendor Relationship Specialty Start Date End Date Child, JEFFRY Hector [address] [place] [address] PCP - General 02/20/24 documented as of this encounter
--- OUTSIDE RECORDS SUMMARY | 2025-10-20 08:08 | XMS_ITS | Clinical Summary ---
Author Organization [address] [place] [address] [place] [phone] Phone Care Team Providers Care Skein Inspector Name Role Phone Child, Krunal TERAN Primary Care Provider Allergies No known active allergies Medications ARIPiprazole [...] DX:Human immunodefi ciency virus (HIV) disease ([facility]) Social History Tobacco Use Types Packs/Day Years Used Date Smoking Tobacco: Never Assessed Sex and Gender Information Value Date Recorded Sex Assigned at Not on file Legal Sex Male 3:31 PM EST Gender Identity Not on file Sexual Orientation Not on file Last Filed Vital Signs Vital Sign Reading [...] 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 ([facility] V24, [facility] V28) from Last 3 Months or Most Recently Relevant to Health Maintenance Results * Lipid panel with reflex to direct LDL (04/25/2025 9:08 AM EDT) Cholesterol 147 0 - 200 mg/dL LAB CHEMISTRY METHOD 04/25/2025 10:43 AM [facility] Triglycerides 143 0 - 150 mg/dL LAB CHEMISTRY METHOD 04/25/2025 10:43 AM [facility] HDL 43 >=40 mg/dL LAB CHEMISTRY METHOD 04/25/2025 10:43 AM [facility] LDL Calculated 75 0 - 100 mg/dL LAB CHEMISTRY METHOD 04/25/2025 10:43 AM [facility] VLDL Cholesterol [place] 28.6 mg/dL LAB CHEMISTRY METHOD 04/25/2025 10:43 AM [facility] Non HDL Chol. (LDL+VLDL) 104 <145 mg/dL LAB CHEMISTRY METHOD 04/25/2025 10:43 AM [facility] Chol/HDL Ratio 3.4 0.0 - 4.4 LAB CHEMISTRY METHOD 04/25/2025 10:43 AM EDT [facility]) [facility] Blood Venous blood specimen / Unknown Venipuncture / Unknown 04/25/2025 9:08 AM EDT 04/25/2025 9:58 AM EDT us Gildardo Rodriguez MD LAB BLOOD ORDERABLES Final Re sult [facility] ([facility]) [facility] [address] [place] [address], [place] [phone] from Last 3 Months or Most Recently Relevant to Health Maintenance Insurance MEDICAID [place] [employer] MEDICARE ADVANTAGE Care Teams Skein Inspector Relationship Specialty Start Date End Date Child, JEFFRY Hector [address] [place] [address] PCP - General 02/20/24
== END 2025-10-20 08:30 | disposition home or self-care (01) ==
LOC: HO.HSMS 07:58
PROVIDERS: PCP Physician Assistant Medical; Visit Provider Psychiatry & Neurology Neurology
DX: R56.9 Unspecified convulsions (principal); G43.019 Migraine without aura, intractable, without status migrainosus; G47.9 Sleep disorder, unspecified
CPT/HCPCS: 99214

== ENCOUNTER → 2025-10-20 07:57 | Outpatient (BNVA) | payer MEDICAID, SELFPAY | PROVIDERS: PCP Physician Assistant Medical; Visit Provider Psychiatry & Neurology Neurology | DX: R56.9 Unspecified convulsions (principal); G43.019 Migraine without aura, intractable, without status migrainosus; G47.9 Sleep disorder, unspecified; Z79.899 Other long term (current) drug therapy | CPT/HCPCS: 99212 ==